=== PATIENT | female | born 1940 | race Caucasian/White ===

== ENCOUNTER 2020-10-03 11:08 | Outpatient (REF) | payer MEDICARE, MEDICAID, SELFPAY ==
--- NOTE | 2020-10-03 | US_ITS ---
EXAMINATION: US RETROPERITONEAL LIMITED (RENAL ONLY) CLINICAL INFORMATION: Nephrolithiasis. COMPARISON: CT abdomen 06/07/2020 TECHNIQUE: Real-time imaging of the kidneys. FINDINGS: RIGHT KIDNEY: 9.3 x 4.8 x 5.2 cm (SAG x AP x TRV). The kidney is normal in size, contour, and echogenicity. Renal cortical thickness is normal. No renal calculi or hydronephrosis. There is an anechoic cyst, the midpole cyst measures 1.2 x 1.1 x 1.2 cm and lower pole cyst measures 1.3 x 1.3 x 1.3 cm. LEFT KIDNEY: 10.3 x 5.6 x 5.3 cm (SAG x AP x TRV). The kidney is normal in size, contour, and echogenicity. Renal cortical thickness is normal. No renal calculi or hydronephrosis. There is an anechoic cyst in upper pole measures 1.1 x 1.5 x 1.1 cm. US/US renal BI IMPRESSION: Bilateral cysts. No kidney stones or hydronephrosis seen.
== END 2020-10-03 11:09 | disposition home or self-care (01) ==
LOC: HO.US 11:08
PROVIDERS: Visit Provider Urology
DX: N20.0 Calculus of kidney (principal)
CPT/HCPCS: 76775

== ENCOUNTER 2021-07-16 09:44 | Inpatient (IN) | payer MEDICARE, MEDICAID, SELFPAY ==
[2021-07-16] VITALS (12 sets, daily range): BP systolic 99–139; BP diastolic 67–89; PULSE 96–190; RESP 15–27; TEMP 37.3–39.6; O2SAT 90–97; BMI 24.0
--- NOTE | ~2021-07-16 | XR_ITS ---
EXAMINATION: CR CHEST CLINICAL INFORMATION: Lethargy. COMPARISON: Chest x-ray dated 06/07/2020. TECHNIQUE: AP semiupright portable view of the chest was obtained. FINDINGS: EKG leads overlie the chest. Right atrial and right ventricular pacer lead unchanged in position. Cardiomediastinal silhouette mildly enlarged and unchanged. Coronary artery stent seen in region of the LAD. Dense atherosclerotic calcification of the aortic arch and descending aorta. Low lung volumes with asymmetric mild elevation of right hemidiaphragm, similar to previous exam. Minimal linear bibasilar atelectasis. No focal consolidation, significant effusion or pneumothorax. Mild gaseous distention of bowel loops in the upper abdomen, likely transverse colon. Several right upper quadrant mandi seen from prior cholecystectomy. XR/XR chest 1V IMPRESSION: 1. Mild bibasilar subsegmental atelectasis. No focal acute pulmonary process. 2. Prominent atherosclerotic aortic calcifications and LAD stent.
--- NOTE | 2021-07-16 09:50 | ED_ITS ---
HPI - Altered Mental Status General Chief Complaint: Altered Mental Status Stated Complaint: altered mental status Time Seen by Provider: 07/16/21 09:49 Source: EMS Mode of arrival: EMS Limitations: altered mental status History of Present Illness HPI narrative: Increase lethargy for the past few days MD complaint: altered mental status and decreased responsiveness Onset (ago): day(s) Severity: moderate Associated symptoms: denies other symptoms Related Data Home Medications Medication Instructions Recorded Confirmed Lactobacillus acidophilus 07/16/21 07/16/21 Multivitamin And Mineral 07/16/21 UTI-Stat 07/16/21 amlodipine 2.5 mg tablet 1 tab PO DAILY 07/16/21 07/16/21 insulin glargine 100 unit/mL unit SUBCUT 07/16/21 subcutaneous solution (Lantus U-100 Insulin) insulin lispro 100 unit/mL SUBCUT 07/16/21 subcutaneous solution (Humalog U-100 Insulin) isosorbide mononitrate 20 mg tablet 1 tab PO DAILY 07/16/21 07/16/21 levothyroxine 112 mcg tablet 1 tab PO DAILY 07/16/21 07/16/21 metoprolol tartrate 50 mg tablet 1 tab PO BID 07/16/21 07/16/21 potassium chloride 10 mEq cap PO 07/16/21 capsule,extended release rivaroxaban 20 mg tablet (Xarelto) 1 tab PO DAILY 07/16/21 07/16/21 sitagliptin 25 mg tablet (Januvia) 1 tab PO DAILY 07/16/21 07/16/21 venlafaxine 150 mg 1 cap PO DAILY 07/16/21 07/16/21 capsule,extended release 24 hr Allergies Allergy/AdvReac Type Severity Reaction Status Date / Time No Known Allergies Allergy Mild NONE Unverified 06/02/20 16:28 sesame seed [SESAME SEED] Allergy Unknown UNK Unverified 06/07/20 08:31 spider bites Allergy Unknown severe Uncoded 04/22/20 00:00 Review of Systems Review of Systems: Yes Unobtainable due to mental status PMFSH Social History Social History Alcohol intake: unknown Patient Tobacco Use Status: Tobacco use Unknown Use of substances other than those prescribed or required for medical reasons: Unable to respond Advance Directives: No Advance Directives Information Provided: No Physical Exam Vital Signs: Vital Signs: Last Vital Signs Temp 100.8 F H 07/16/21 11:36 Pulse 128 H 07/16/21 11:36 Resp 22 H 07/16/21 11:36 BP 114/89 07/16/21 11:36 Pulse Ox 94 07/16/21 11:36 Body Mass Index 24.0 Const: Other: [place] female minimally responsive Nutritional Appearance: average body habitus Limitations: altered mental status HENMT: Head: Yes normal to inspection Ears: external ears normal General nose exam: Normal external nose present Mouth: Normal oral and palatal mucosa present and oropharynx normal Throat: Yes posterior oropharynx normal Eyes: General: appearance normal, both eyes and all related structures Neck: Other: supple Neck: Yes normal visual inspection Chest: Chest palpation & inspection: normal inspection of the chest Resp: Auscultation: clear to auscultation bilaterally Cardio: Jugular venous distension: no JVD Rate: regular rate Rhythm: regular rhythm Heart sounds: S1 normal heart sound present and S2 normal heart sound present GI: Inspection: Yes normal to inspection Palpation (GI): Soft to palpation, nontender and No hepatosplenomegaly present Auscultation: normal bowel sounds : General: Yes no CVA tenderness Back/Spine/Pelvis: Back: no CVA tenderness Skin: General skin exam: no rashes or lesions noted Neuro: Other: movement all extremities to noxious stimulus Extrem: General: Yes normal to inspection Psych: Appearance: grossly normal Course Reevaluation(s) Reevaluation #1: Patient with sepsis from urinary source, hypernatremia seconda ry to dehydration, intial low BP secondary to dehydration and sepsis, demand infarction from rapid afib and sepsis will give rectal ASA, ceftriaxone given for UTI. Patients heart rate and blood pressure have improved with saline, no need for pressors at this time Time: 11:12 Reevaluation #2: discussed with Dr. Clifton who would no anticoagulate at this time Time: 12:11 MDM - Altered Mental Status Lab Data Result diagrams: 07/16/21 10:12 07/16/21 10:12 Labs: Lab Results 07/16/21 07/16/21 07/16/21 Range/Units 10:12 10:12 10:12 WBC 13.1 H (4.8-10.8) X10*3/uL RBC 6.17 H (4.20-5.50) X10*6/uL Hgb 18.3 H (12.0-16.0) g/dl Hct 57.1 H (37.0-47.0) % MCV 92.5 (80.0-98.0) fL MCH 29.7 (27.0-33.0) pg MCHC 32.0 (31.0-35.0) g/dl RDW 13.5 (11.0-16.0) % Plt Count 246 (160-400) X10*3/uL MPV 10.5 (9.4-12.3) fL Immature Gran % (Auto) 0.5 H (0.0-0.4) % Neut % (Auto) 80.6 H (45-73) % Lymph % (Auto) 13.4 L (20-40) % [place] % (Auto) 5.2 (2-11) % Eos % (Auto) 0.0 (0-4) % Baso % (Auto) 0.3 (0-2) % Lymph # (Auto) 1.8 (1.2-4.9) X10*3/uL [place] # (Auto) 0.7 (0.1-1.2) X10*3/uL Eos # (Auto) 0.0 (0.0-0.4) X10*3/uL Baso # (Auto) 0.0 (0.0-0.2) X10*3/uL Abs Immat Gran (auto) 0.06 H (0.00-0.03) X10*3/uL Absolute Neuts (auto) 10.56 H (2.0-8.3) x10*3/uL Absolute Nucleated RBC 0.000 (0.0-0.012) X10*3/uL Nucleated RBC % (auto) 0.0 (0.0-0.2) /100WBC Sodium 154 H (135-145) mmol/L Potassium 5.4 H (3.3-5.1) mmol/L Chloride 116 H (96-108) mmol/L Carbon Dioxide 21 L (22-29) mmol/L Anion Gap 22 H (12-20) BUN 27 H (9-16) mg/dL Creatinine 1.42 H (0.5-1.4) mg/dL Estim Creat Clear Calc 25.8 Estimated GFR 35 Random Glucose 221 H (60-115) mg/dL Lactic Acid (0.5-2.0) mmol/L Calcium 9.6 (8.4-10.2) mg/dL Total Bilirubin 1.8 H (0.0-1.0) mg/dL Direct Bilirubin 0.4 (0.0-0.5) mg/dL AST 40 H (5-31) U/L ALT 44 H (0-31) U/L Alkaline Phosphatase 82 (39-117) U/L Troponin I High Sens 1105.5 H* (<3.5-17.0) ng/L Total Protein 7.9 (6.5-8.0) g/dL Albumin 3.7 (3.5-5.0) g/dL Urine Color Urine Appearance Urine pH (5.0-8.0) Ur Specific [place] (1.005-1.025) Urine Protein (NEG-TRACE) MG/DL Urine Glucose (UA) (NEG) MG/DL Urine Ketones (NEG) MG/DL Urine Blood (NEG) Urine Nitrite (NEG) Ur Leukocyte Esterase (NEG) Urine RBC (0) /HPF Urine WBC (0-4) /HPF Ur Squamous Epith Cells /LPF Calcium Oxalate Crystal /LPF Urine Bacteria /LPF COVID-19 (DANNY) (Negative) COVID-19 Clin Com 07/16/21 07/16/21 07/16/21 Range/Units 10:12 10:25 10:35 WBC (4.8-10.8) X10*3/uL RBC (4.20-5.50) X10*6/uL Hgb (12.0-16.0) g/dl Hct (37.0-47.0) % MCV (80.0-98.0) fL MCH (27.0-33.0) pg MCHC (31.0-35.0) g/dl RDW (11.0-16.0) % Plt Count (160-400) X10*3/uL MPV (9.4-12.3) fL Immature Gran % (Auto) (0.0-0.4) % Neut % (Auto) (45-73) % Lymph % (Auto) (20-40) % [place] % (Auto) (2-11) % Eos % (Auto) (0-4) % Baso % (Auto) (0-2) % Lymph # (Auto) (1.2-4.9) X10*3/uL [place] # (Auto) (0.1-1.2) X10*3/uL Eos # (Auto) (0.0-0.4) X10*3/uL Baso # (Auto) (0.0-0.2) X10*3/uL Abs Immat Gran (auto) (0.00-0.03) X10*3/uL Absolute Neuts (auto) (2.0-8.3) x10*3/uL Absolute Nucleated RBC (0.0-0.012) X10*3/uL Nucleated RBC % (auto) (0.0-0.2) /100WBC Sodium (135-145) mmol/L Potassium (3.3-5.1) mmol/L Chloride (96-108) mmol/L Carbon Dioxide (22-29) mmol/L Anion Gap (12-20) BUN (9-16) mg/dL Creatinine (0.5-1.4) mg/dL Estim Creat Clear Calc Estimated GFR Random Glucose (60-115) mg/dL Lactic Acid 2.9 H* (0.5-2.0) mmol/L Calcium (8.4-10.2) mg/dL Total Bilirubin (0.0-1.0) mg/dL Direct Bilirubin (0.0-0.5) mg/dL AST (5-31) U/L ALT (0-31) U/L Alkaline Phosphatase (39-117) U/L Troponin I High Sens (<3.5-17.0) ng/L Total Protein (6.5-8.0) g/dL Albumin (3.5-5.0) g/dL Urine Color YELLOW Urine Appearance TURBID Urine pH 6.0 (5.0-8.0) Ur Specific [place] >= 1.030 H (1.005-1.025) Urine Protein 1+ H (NEG-TRACE) MG/DL Urine Glucose (UA) NEG (NEG) MG/DL Urine Ketones 15 (NEG) MG/DL Urine Blood 2+ H (NEG) Urine Nitrite POS H (NEG) Ur Leukocyte Esterase 3+ H (NEG) Urine RBC 0 (0) /HPF Urine WBC TNTC H (0-4) /HPF Ur Squamous Epith Cells TRACE /LPF Calcium Oxalate Crystal 1+ /LPF Urine Bacteria 4+ /LPF COVID-19 (DANNY) Negative (Negative) COVID-19 Clin Com See Note Imaging Data Chest x-ray: Attestation: I personally reviewed and interpreted this imaging study as follows: Radiologist's impression: no infiltrate ECG Data ECG #1: Attestation: I personally reviewed and interpreted this ECG as follows: Interpretation: Atrial fibrillaton, rate of 130, Old inferior wall ID, no st or twave changes Critical Care Time Critical Care Time Attestation: I spent 40 minutes of critical care, with interventions, assessments, speaking to patient, consultants, and family. Discharge Plan Discharge Clinical Impression: Non-ST elevated myocardial infarction (non-STEMI), Acute hypernatremia Sepsis Qualifiers: Sepsis type: sepsis due to unspecified organism Sepsis acute organ dysfunction status: with acute organ dysfunction Severe sepsis acute organ dysfunction type: encephalopathy Severe sepsis shock status: without septic shock Qualified Code(s): A41.9 - Sepsis, unspecified organism Urinary tract infection Qualifiers: Urinary tract infection type: site unspecified Hematuria presence: without hematuria Qualified Code(s): N39.0 - Urinary tract infection, site not specified Patient Disposition: Admitted As Inpatient
--- NOTE | 2021-07-16 09:55 | ECG_ITS ---
Test Reason : High HR Blood Pressure : / mmHG Vent. Rate : 188 BPM Atrial Rate : 000 BPM P-R Int : 000 ms QRS Dur : 110 ms QT Int : 256 ms P-R-T Axes : 000 -36 150 degrees QTc Int : 453 ms Atrial fibrillation with rapid ventricular response Left axis deviation Left ventricular hypertrophy ( Sandro product , Romhilt-Shanks ) Possible Lateral infarct , age undetermined Incomplete left bundle branch block Abnormal ECG Atrial fibrillation is new Incomplete left bundle branch block has replaced Left bundle branch block Heart rate has increased Clinical Correlation Advised Referred By: Vinnie Jackson Electronically Signed By:FAUZIA PETERSON MD
[2021-07-16] MEDS: 0.9 % Sodium Chloride 1,000 ML 125 ML IVCONT ×2 (10:13→18:37)
[2021-07-16 10:17] LABS: MANUAL DIFF FLAG NO
[2021-07-16 10:20] LABS: Basophils Percent Auto 0.3 % (0-2); Hemoglobin 18.3 g/dl (12.0-16.0); Imm Gran Abs Auto 0.06 X10*3/uL (0.00-0.03); Imm Gran Pct Auto 0.5 % (0.0-0.4); Lymphocytes Absolute Auto 1.8 X10*3/uL (1.2-4.9); Lymphocytes Percent Auto 13.4 % (20-40); Mean Corpuscular Hemoglobin 29.7 pg (27.0-33.0); Mean Corpuscular Volume 92.5 fL (80.0-98.0); Mean Platelet Volume 10.5 fL (9.4-12.3); Monocytes Absolute Auto 0.7 X10*3/uL (0.1-1.2); Monocytes Percent Auto 5.2 % (2-11); Neutrophils Absolute Auto 10.56 x10*3/uL (2.0-8.3); Neutrophils Percent Auto 80.6 % (45-73); Platelet Count 246 X10*3/uL (160-400); Red Blood Count 6.17 X10*6/uL (4.20-5.50); Red Cell Distribution Width 13.5 % (11.0-16.0); White Blood Count 13.1 X10*3/uL (4.8-10.8)
[2021-07-16 10:21] LABS: Hematocrit 57.1 % (37.0-47.0)
[2021-07-16] MEDS: Acetaminophen Supp 650 MG SUPP.RECT PR (10:28)
[2021-07-16] MEDS: 0.9 % Sodium Chloride 1,905.09 ML 999 ML IV (10:29)
[2021-07-16 10:42] LABS: Troponin-I High Sensitivity 1105.5 ng/L (<3.5-17.0)
[2021-07-16 10:43] LABS: Lactic Acid 2.9 mmol/L (0.5-2.0)
[2021-07-16 10:44] LABS: Appearance Urine TURBID; Color Urine YELLOW; Glucose Urine UA NEG (NEG); Leukocyte Esterase Urine 3+ (NEG); Nitrite Urine POS (NEG); Specific Gravity - Urine >= 1.030 (1.005-1.025); UACC Culture Trigger YES; Urine Blood 2+ (NEG); Urine Ketones 15 MG/DL (NEG); Urine Protein 1+ MG/DL (NEG-TRACE)
[2021-07-16 10:48] LABS: COVID-19 Test Negative (Negative)
[2021-07-16 10:52] LABS: Alanine Aminotransferase 44 U/L (0-31); Albumin Level 3.7 g/dL (3.5-5.0); Alkaline Phosphatase 82 U/L (39-117); Anion Gap 22 (12-20); Aspartate Amino Transferase 40 U/L (5-31); Bilirubin Direct 0.4 mg/dL (0.0-0.5); Bilirubin Total 1.8 mg/dL (0.0-1.0); Blood Urea Nitrogen 27 mg/dL (9-16); Calcium 9.6 mg/dL (8.4-10.2); Carbon Dioxide 21 mmol/L (22-29); Chloride 116 mmol/L (96-108); Creatinine Clr Calc Pharmacy 25.8; Estimated Glomerular Filt Rate 35; Glucose Random 221 mg/dL (60-115); Potassium 5.4 mmol/L (3.3-5.1); Sodium 154 mmol/L (135-145); Total Protein 7.9 g/dL (6.5-8.0)
[2021-07-16 10:56] LABS: Bacteria Urine 4+ /LPF; Calcium Oxalate Crystals Urine 1+ /LPF; WBC Urine TNTC /HPF (0-4)
[2021-07-16 10:57] LABS: RBC Urine 0 /HPF (0); Squamous Epithelial Cell Urine TRACE /LPF
[2021-07-16] MEDS: cefTRIAXone sodium 2 GM in 0.9 % Sodium Chloride 50 ML IV (11:06)
[2021-07-16] MEDS: Aspirin 300 MG SUPP.RECT PR (11:36)
[2021-07-16 12:27] LABS: Reflex Lactate? Lactic Acid Added
--- NOTE | 2021-07-16 12:29 | PM.IMHP ---
History of Present Illness Date of Service: 07/16/21 Chief Complaint: ams 81F from care home was sent in for progressive sleepiness, decreased intake. at baseline patient is alert, moderately demented, can talk but not particularly conversational, usually recognizes family members, needs assistance in all ADLs including feeding. over last few days has become more sleepy and has had decreased appetite so they broght her to ED. in ED found to be septic, febril, tachycardic. UA was pyuric and bacturic. labs significant for EVELYN and hypernatremia, as well as hs troponin of 1100. Review of Systems Review of Systems: Yes Unobtainable due to mental status [facility] Medical History Breast cancer CAD (coronary artery disease) Chronic combined systolic and diastolic CHF (congestive heart failure) Dementia Diabetes mellitus HTN (hypertension) Hypothyroid LBBB (left bundle branch block) Paroxysmal A-fib Presence of stent in LAD coronary artery Family History Father CAD (coronary artery disease) Diabetes Mother CAD (coronary artery disease) Pertinent family history: . Surgical History S/P cholecystectomy Status post cardiac pacemaker procedure Social History Alcohol intake: unknown Patient Tobacco Use Status: Never used Tobacco Use of substances other than those prescribed or required for medical reasons: Unable to respond Advance Directives: No Advance Directives Information Provided: No Meds Allergies Allergy/AdvReac Type Severity Reaction Status Date / Time No Known Allergies Allergy Mild NONE Unverified 06/02/20 16:28 sesame seed [SESAME SEED] Allergy Unknown UNK Unverified 06/07/20 08:31 spider bites Allergy Unknown severe Uncoded 04/22/20 00:00 Active Medications: Current Medications Acetaminophen (Acetaminophen 325 Mg Tablet) 650 mg PO Q6H PRN PRN Reason: Pain, Mild (Pain Scale 1-3) Dextrose (Dextrose 50 % 25 Gm/50 Ml Vial) 25 gm IVPUSH Q15M PRN; Protocol PRN Reason: per Hypoglycemia Standing Ord. Glucose (Glucose Gel 15 Gm Gel..Gram.) 15 gm PO Q15M PRN; Protocol PRN Reason: per Hypoglycemia Standing Ord. Sodium Chloride (Ns) 1,000 mls @ 125 mls/hr IVCONT .Q8H [facility] Last Admin: 07/16/21 10:13 Dose: 125 mls/hr Documented by: Ceftriaxone Sodium 1 gm/ (Sodium Chloride) 50 mls @ 100 mls/hr IV Q24H [facility] Insulin Glargine (Insulin Glargine,Hum.Rec.Anlog 100 Unit/Ml 10 Ml Vial) 10 unit SUBCUT BEDTIME [facility] Insulin Human Lispro (Insulin Lispro 100 Unit/Ml 3 Ml Vial) 0 unit SUBCUT QIDACHS [facility]; Protocol Levothyroxine Sodium (Levothyroxine Sodium 112 Mcg Tablet) 112 mcg PO DAILY@0600 [facility] Metoprolol Tartrate (Metoprolol Tartrate 50 Mg Tablet) 50 mg PO BID [facility]; Protocol Rivaroxaban (Rivaroxaban 20 Mg Tablet) 20 mg PO DAILY [facility] Sitagliptin Phosphate (Sitagliptin Phosphate 25 Mg Tablet) 25 mg PO DAILY [facility] Sodium Chloride (0.9 % Sodium Chloride Flush 3 Ml Syringe) 3 ml IVFLUSH QSHIFT [facility] Venlafaxine HCl (Venlafaxine Hcl Er 150 Mg Cap.Er.24h) 150 mg PO DAILY [facility] Home Medications Medication Instructions Recorded Confirmed Last Taken Type Lactobacillus acidophilus 07/16/21 07/16/21 Unknown History Multivitamin And Mineral 07/16/21 Unknown History UTI-Stat 07/16/21 Unknown History amlodipine 2.5 mg tablet 1 tab PO DAILY 07/16/21 07/16/21 Unknown History insulin glargine 100 unit/mL unit SUBCUT 07/16/21 Unknown History subcutaneous solution (Lantus U-100 Insulin) insulin lispro 100 unit/mL SUBCUT 07/16/21 Unknown History subcutaneous solution (Humalog U-100 Insulin) isosorbide mononitrate 20 mg tablet 1 tab PO DAILY 07/16/21 07/16/21 Unknown History levothyroxine 112 mcg tablet 1 tab PO DAILY 07/16/21 07/16/21 Unknown History metoprolol tartrate 50 mg tablet 1 tab PO BID 07/16/21 07/16/21 Unknown History potassium chloride 10 mEq cap PO 07/16/21 Unknown History capsule,extended release rivaroxaban 20 mg tablet (Xarelto) 1 tab PO DAILY 07/16/21 07/16/21 Unknown History sitagliptin 25 mg tablet (Januvia) 1 tab PO DAILY 07/16/21 07/16/21 Unknown History venlafaxine 150 mg 1 cap PO DAILY 07/16/21 07/16/21 Unknown History capsule,extended release 24 hr Physical Exam Vital Signs and Narrative: Vital Signs: Last Vital Signs Temp 100.8 F H 07/16/21 11:36 Pulse 128 H 07/16/21 11:36 Resp 22 H 07/16/21 11:36 BP 114/89 07/16/21 11:36 Pulse Ox 94 07/16/21 11:36 Body Mass Index 24.0 General: obtunded, ill appearing HEENT: atraumatic Neck: normal to visual inspection CVS: S1, S2, Rapid Resp: CTA bilateral Chest: non tender GI: soft, non tender, non distended : no CVA tenderness Skin: no rashes Extremities: no edema Neuro: Obtunded, moves all 4 limbs spontaneously Psych: cannot assess Results Labs CBC and Chem 7: 07/16/21 10:12 07/16/21 10:12 Labs: Laboratory Results - last 24 hr 07/16/21 07/16/21 07/16/21 10:12 10:12 10:12 MCV 92.5 MCH 29.7 MCHC 32.0 RDW 13.5 Plt Count 246 MPV 10.5 Immature Gran % (Auto) 0.5 H Neut % (Auto) 80.6 H Lymph % (Auto) 13.4 L [place] % (Auto) 5.2 Eos % (Auto) 0.0 Baso % (Auto) 0.3 Lymph # (Auto) 1.8 [place] # (Auto) 0.7 Eos # (Auto) 0.0 Baso # (Auto) 0.0 Abs Immat Gran (auto) 0.06 H Absolute Neuts (auto) 10.56 H Absolute Nucleated RBC 0.000 Nucleated RBC % (auto) 0.0 Anion Gap 22 H Estim Creat Clear Calc 25.8 Estimated GFR 35 Random Glucose 221 H Lactic Acid Calcium 9.6 Total Bilirubin 1.8 H Direct Bilirubin 0.4 AST 40 H ALT 44 H Alkaline Phosphatase 82 Troponin I High Sens 1105.5 H* Total Protein 7.9 Albumin 3.7 Urine Color Urine Appearance Urine pH Ur Specific [place] Urine Protein Urine Glucose (UA) Urine Ketones Urine Blood Urine Nitrite Ur Leukocyte Esterase Urine RBC Urine WBC Ur Squamous Epith Cells Calcium Oxalate Crystal Urine Bacteria COVID-19 (DANNY) COVID-19 Clin Com 07/16/21 07/16/21 07/16/21 10:12 10:25 10:35 MCV MCH MCHC RDW Plt Count MPV Immature Gran % (Auto) Neut % (Auto) Lymph % (Auto) [place] % (Auto) Eos % (Auto) Baso % (Auto) Lymph # (Auto) [place] # (Auto) Eos # (Auto) Baso # (Auto) Abs Immat Gran (auto) Absolute Neuts (auto) Absolute Nucleated RBC Nucleated RBC % (auto) Anion Gap Estim Creat Clear Calc Estimated GFR Random Glucose Lactic Acid 2.9 H* Calcium Total Bilirubin Direct Bilirubin AST ALT Alkaline Phosphatase Troponin I High Sens Total Protein Albumin Urine Color YELLOW Urine Appearance TURBID Urine pH 6.0 Ur Specific [place] >= 1.030 H Urine Protein 1+ H Urine Glucose (UA) NEG Urine Ketones 15 Urine Blood 2+ H Urine Nitrite POS H Ur Leukocyte Esterase 3+ H Urine RBC 0 Urine WBC TNTC H Ur Squamous Epith Cells TRACE Calcium Oxalate Crystal 1+ Urine Bacteria 4+ COVID-19 (DANNY) Negative COVID-19 Clin Com See Note Imaging Radiologist's Impressions: Impressions Chest X-Ray 07/16/21 09:56 IMPRESSION: 1. Mild bibasilar subsegmental atelectasis. No focal acute pulmonary process. 2. Prominent atherosclerotic aortic calcifications and LAD stent. Assessment and Plan (1) Sepsis: Qualifiers: Sepsis acute organ dysfunction status: with acute organ dysfunction Sepsis type: sepsis due to unspecified organism Severe sepsis acute organ dysfunction type: encephalopathy Severe sepsis shock status: without septic shock Qualified Code(s): A41.9 - Sepsis, unspecified organism; R65.20 - Severe sepsis without septic shock; G93.40 - Encephalopathy, unspecified Status: Acute (2) EVELYN (acute kidney injury): Status: Acute 81F presented with AMS, found to have sepsis, uti, hypernatremia, evelyn severe sepsis due to UTI complicated by metabolic encephalopathy, hypernatremia, type II NSTEMI, and EVELYN rocephin, follow up cultures IVF - isotonic for now, monitor bmp will follow up troponin, but no need for specific therapy at this time, cardio eval paroxysmal atrial fibrillation xarelto metoprolol DM insulin htn will hold meds while septic CAD xarelto hypothyroid synthroid chronic systolic and diastolic chf currently dry -watch for fluid overload full code - discussed with daughter Quality Stroke Does the patient have a stroke diagnosis?: No VTE Prior VTE?: No VTE Risk Level:: Medical - moderate - high VTE Device Contraindication: Treatment Not Indicated VTE Drug Contraindication: N/A - Med Ordered
[2021-07-16 13:27] LABS: ~Lactic Acid-LAB USE ONLY 1.8 mmol/L (0.5-2.0)
--- NOTE | 2021-07-16 16:50 | PC.NURSE ---
Pt is resting comfortably in bed at this time. Pt has had multiple bouts of very watery loose stools throughout the day. NS is infusing. Temp, HR and mental status have improved. Pt has not had anything to eat yet, for she is still lethargic. Will continue to monitor and treat while waiting for an in patient bed assignment.
[2021-07-16 18:14] LABS: Glucose, Whole Blood 123 mg/dL (60-115)
[2021-07-16 20:20] LABS: Glucose, Whole Blood 112 mg/dL (60-115)
[2021-07-16] MEDS: Insulin Glargine,Hum.rec.anlog 100 UNIT/ML 10 ML VIAL 10 UNIT SUBCUT (22:17)
[2021-07-17] VITALS (9 sets, daily range): BP systolic 105–163; BP diastolic 70–105; PULSE 62–157; RESP 14–20; TEMP 36.1–37.4; O2SAT 94–100
[2021-07-17] MEDS: 0.9 % Sodium Chloride Flush 3 ML SYRINGE IVFLUSH ×2 (00:56→15:42)
[2021-07-17] MEDS: 0.9 % Sodium Chloride 1,000 ML 125 ML IVCONT (03:06)
[2021-07-17] MEDS: Metoprolol Tartrate 5 MG/5 ML VIAL IVPUSH ×2 (03:56→09:45)
[2021-07-17 05:47] LABS: Hematocrit 50.7 % (37.0-47.0); Hemoglobin 15.5 g/dl (12.0-16.0); Mean Corpuscular HGB Conc 30.6 g/dl (31.0-35.0); Mean Corpuscular Hemoglobin 29.5 pg (27.0-33.0); Mean Corpuscular Volume 96.4 fL (80.0-98.0); Mean Platelet Volume 10.7 fL (9.4-12.3); Platelet Count 180 X10*3/uL (160-400); Red Blood Count 5.26 X10*6/uL (4.20-5.50); Red Cell Distribution Width 13.3 % (11.0-16.0); White Blood Count 14.8 X10*3/uL (4.8-10.8)
[2021-07-17 06:02] LABS: Anion Gap 13 (12-20); Blood Urea Nitrogen 20 mg/dL (9-16); Carbon Dioxide 18 mmol/L (22-29); Chloride 126 mmol/L (96-108); Creatinine Clr Calc Pharmacy 48.4; Estimated Glomerular Filt Rate > 60; Glucose Fasting 102 mg/dL (60-99); Potassium 3.5 mmol/L (3.3-5.1); Sodium 153 mmol/L (135-145)
[2021-07-17 06:10] LABS: Troponin-I High Sensitivity 354.8 ng/L (<3.5-17.0)
--- NOTE | 2021-07-17 06:18 | PM.EVENT ---
Event Note Date of Service: 07/17/21 Event Note: Elevated Troponins: Likely Demand from sepsis/afib RVR; pt already on xarelto; Cardiology notfied. prn IV metoprolol given for RVR
[2021-07-17 08:11] LABS: Glucose, Whole Blood 91 mg/dL (60-115)
[2021-07-17] MEDS: Dextrose 5 % 1,000 ML 125 ML IVCONT ×3 (08:19→23:20)
[2021-07-17] MEDS: cefTRIAXone sodium 1 GM in 0.9 % Sodium Chloride 50 ML IV (08:19)
--- NOTE | 2021-07-17 08:33 | PC.NURSE ---
this rn reached out to ana in speech d/t over night concerns of aspiration
--- NOTE | 2021-07-17 10:45 | HO.PM.IMPN ---
Subjective Subjective Date of Service: 07/17/21 Interval History: cc: ams interval history: poor historian, now alert, denies complaints Cardiovascular Cardiovascular: Reports no additional cardiovascular complaints Respiratory Respiratory: Reports no additional respiratory complaints Physical Exam Vital Signs: Vital Signs: Last Vital Signs Temp 99.3 F 07/17/21 06:33 Pulse 112 H 07/17/21 09:51 Resp 14 07/17/21 09:51 BP 128/95 H 07/17/21 09:51 Pulse Ox 94 07/17/21 09:51 Body Mass Index 24.0 General: AO X 1, no acute distress Resp: CTA bilateral, no accessory muscles used CVS: S1,S2,RRR GI: soft, non tender, non distended Neuro: motor grossly intact, alert Psych: appropriate affect, impaired insight Objective Data Active Medications Acetaminophen (Acetaminophen 325 Mg Tablet) 650 mg PO Q6H PRN PRN Reason: Pain, Mild (Pain Scale 1-3) Dextrose (Dextrose 50 % 25 Gm/50 Ml Vial) 25 gm IVPUSH Q15M PRN; Protocol PRN Reason: per Hypoglycemia Standing Ord. Glucose (Glucose Gel 15 Gm Gel..Gram.) 15 gm PO Q15M PRN; Protocol PRN Reason: per Hypoglycemia Standing Ord. Ceftriaxone Sodium 1 gm/ (Sodium Chloride) 50 mls @ 100 mls/hr IV Q24H [facility] Last Infusion: 07/17/21 08:49 Dose: 0 mls/hr Documented by: CARIN Dextrose (D5w) 1,000 mls @ 125 mls/hr IVCONT .Q8H [facility] Last Admin: 07/17/21 08:19 Dose: 125 mls/hr Documented by: CARIN Insulin Glargine (Insulin Glargine,Hum.Rec.Anlog 100 Unit/Ml 10 Ml Vial) 10 unit SUBCUT BEDTIME [facility] Last Admin: 07/16/21 22:17 Dose: 10 unit Documented by: TONE Insulin Human Lispro (Insulin Lispro 100 Unit/Ml 3 Ml Vial) 0 unit SUBCUT QIDACHS [facility]; Protocol Last Admin: 07/17/21 08:19 Dose: Not Given Documented by: CARIN Non-Admin Reason: No Insulin Coverage Levothyroxine Sodium (Levothyroxine Sodium 112 Mcg Tablet) 112 mcg PO DAILY@0600 [facility] Last Admin: 07/17/21 06:35 Dose: Not Given Documented by: TONE Non-Admin Reason: NPO Metoprolol Tartrate (Metoprolol Tartrate 50 Mg Tablet) 50 mg PO BID [facility]; Protocol Last Admin: 07/17/21 07:56 Dose: Not Given Documented by: CARIN Non-Admin Reason: See Note Metoprolol Tartrate (Metoprolol Tartrate 5 Mg/5 Ml Vial) 5 mg IVPUSH Q6H PRN PRN Reason: HR>125 Last Admin: 07/17/21 09:45 Dose: 5 mg Documented by: CARIN Rivaroxaban (Rivaroxaban 20 Mg Tablet) 20 mg PO DAILY [facility] Last Admin: 07/17/21 07:57 Dose: Not Given Documented by: CARIN Non-Admin Reason: See Note Sitagliptin Phosphate (Sitagliptin Phosphate 25 Mg Tablet) 25 mg PO DAILY [facility] Last Admin: 07/17/21 07:57 Dose: Not Given Documented by: CARIN Non-Admin Reason: See Note Sodium Chloride (0.9 % Sodium Chloride Flush 3 Ml Syringe) 3 ml IVFLUSH QSHIFT [facility] Last Admin: 07/17/21 08:20 Dose: Not Given Documented by: CARIN Non-Admin Reason: IV Running Venlafaxine HCl (Venlafaxine Hcl Er 150 Mg Cap.Er.24h) 150 mg PO DAILY [facility] Last Admin: 07/17/21 07:58 Dose: Not Given Documented by: CARIN Non-Admin Reason: See Note Labs CBC & Chem 7: 07/17/21 05:41 07/17/21 05:41 Labs: Laboratory Results - last 24 hr 07/16/21 07/16/21 07/16/21 10:12 10:12 10:35 MCV MCH MCHC RDW Plt Count MPV Absolute Nucleated RBC Nucleated RBC % (auto) Anion Gap 22 H Estim Creat Clear Calc 25.8 Estimated GFR 35 POC Glucose Random Glucose 221 H Fasting Glucose Lactic Acid Fup @ 2Hr Calcium 9.6 Total Bilirubin 1.8 H Direct Bilirubin 0.4 AST 40 H ALT 44 H Alkaline Phosphatase 82 Troponin I High Sens Total Protein 7.9 Albumin 3.7 Urine Color YELLOW Urine Appearance TURBID Urine pH 6.0 Ur Specific Antonito >= 1.030 H Urine Protein 1+ H Urine Glucose (UA) NEG Urine Ketones 15 Urine Blood 2+ H Urine Nitrite POS H Ur Leukocyte Esterase 3+ H Urine RBC 0 Urine WBC TNTC H Ur Squamous Epith Cells TRACE Calcium Oxalate Crystal 1+ Urine Bacteria 4+ COVID-19 (DANNY) Negative COVID-19 Clin Com See Note 07/16/21 07/16/21 07/16/21 13:12 18:09 20:16 MCV MCH MCHC RDW Plt Count MPV Absolute Nucleated RBC Nucleated RBC % (auto) Anion Gap Estim Creat Clear Calc Estimated GFR POC Glucose 123 H 112 Random Glucose Fasting Glucose Lactic Acid Fup @ 2Hr 1.8 Calcium Total Bilirubin Direct Bilirubin AST ALT Alkaline Phosphatase Troponin I High Sens Total Protein Albumin Urine Color Urine Appearance Urine pH Ur Specific Antonito Urine Protein Urine Glucose (UA) Urine Ketones Urine Blood Urine Nitrite Ur Leukocyte Esterase Urine RBC Urine WBC Ur Squamous Epith Cells Calcium Oxalate Crystal Urine Bacteria COVID-19 (DANNY) COVID-19 Clin Com 07/17/21 07/17/21 07/17/21 05:41 05:41 05:41 MCV 96.4 MCH 29.5 MCHC 30.6 L RDW 13.3 Plt Count 180 D MPV 10.7 Absolute Nucleated RBC 0.000 Nucleated RBC % (auto) 0.0 Anion Gap 13 Estim Creat Clear Calc 48.4 Estimated GFR > 60 POC Glucose Random Glucose Fasting Glucose 102 H Lactic Acid Fup @ 2Hr Calcium 8.0 L D Total Bilirubin Direct Bilirubin AST ALT Alkaline Phosphatase Troponin I High Sens 354.8 H* D Total Protein Albumin Urine Color Urine Appearance Urine pH Ur Specific [place] Urine Protein Urine Glucose (UA) Urine Ketones Urine Blood Urine Nitrite Ur Leukocyte Esterase Urine RBC Urine WBC Ur Squamous Epith Cells Calcium Oxalate Crystal Urine Bacteria COVID-19 (DANNY) COVID-19 Clin Com 07/17/21 08:08 MCV MCH MCHC RDW Plt Count MPV Absolute Nucleated RBC Nucleated RBC % (auto) Anion Gap Estim Creat Clear Calc Estimated GFR POC Glucose 91 Random Glucose Fasting Glucose Lactic Acid Fup @ 2Hr Calcium Total Bilirubin Direct Bilirubin AST ALT Alkaline Phosphatase Troponin I High Sens Total Protein Albumin Urine Color Urine Appearance Urine pH Ur Specific [place] Urine Protein Urine Glucose (UA) Urine Ketones Urine Blood Urine Nitrite Ur Leukocyte Esterase Urine RBC Urine WBC Ur Squamous Epith Cells Calcium Oxalate Crystal Urine Bacteria COVID-19 (DANNY) COVID-19 Clin Com Assessment and Plan (1) MIMI (acute kidney injury): Status: Acute (2) Sepsis: Status: Acute (3) Urinary tract infection: Status: Acute (4) Non-ST elevated myocardial infarction (non-STEMI): Status: Acute Assessment and Plan: 81F presented with AMS, found to have sepsis, uti, hypernatremia, mimi severe sepsis due to UTI complicated by metabolic encephalopathy, hypernatremia, type II NSTEMI, and MIMI encephalopathy and MIMI resolved rocephin, follow up cultures IVF - now volume resuscitated, changed to hypotonic, monitor bmp troponin decreasing paroxysmal atrial fibrillation with RVR xarelto metoprolol DM insulin htn will hold meds while septic CAD xarelto hypothyroid synthroid chronic systolic and diastolic chf now euvolemic -watch for fluid overload full code Quality Stroke Does the patient have a stroke diagnosis?: No VTE Prior VTE?: No VTE Risk Level:: Medical - moderate - high VTE Device Contraindication: Treatment Not Indicated VTE Drug Contraindication: N/A - Med Ordered
[2021-07-17] MEDS: Rivaroxaban 20 MG TABLET PO (11:20)
[2021-07-17] MEDS: SITagliptin Phosphate 25 MG TABLET PO (11:21)
[2021-07-17] MEDS: Venlafaxine HCl ER 150 MG CAP.ER.24H PO (11:21)
[2021-07-17] MEDS: Metoprolol Tartrate 50 MG TABLET PO ×2 (11:22→21:53)
--- NOTE | 2021-07-17 11:45 | MHC.SL.SWA ---
Speech Pathologist Impression: Risk of Aspiration Oralpharyngeal Dysphagia Risk of Aspiration Due to: Neurological Condition Poor PO Intake Reduced Cognition Dysphasia Diet Status: Upgrade Liquid Consistency and Strategies for Safe Swallow: Liquid Intake Recommendation: [place] Thick Liquid Intake Strategies: Small Sips No Straws Solid Food Consistency: Dietary Recommendations: Pureed (NDD1) Additional Modifications to Solid Foods: Patient was previously seen by OYSTERMAN for bedside dysphagia evaluation on 06/10/20. At that time, patient was reportedly on pureed solids and thin liquids at baseline, and required 1:1 assistance feeding and cues to swallow at times. Patient is now admitted for severe sepsis d/t UTI. Order was placed for bedside dysphagia evaluation in the ED this morning due to concern for aspiration. Patient seen this morning for PO trials. Note overt s/s of aspiration with thin liquid given by teaspoon. Patient tolerated thickened liquids without any difficulty. Note mildly slow oral preparatory phase. Recommend PUREED solids (NDD1), NECTAR THICK liquids (NO STRAW), and CRUSHED pills in PUREE. Patient requires total 1:1 assistance feeding and strict aspiration precautions. OYSTERMAN will continue to follow. Oral Medication Intake: Crushed with Puree Compensatory Strategies and Precautions to be Taken for Safe Swallow: Sitting Upright (90 deg) No Straw Small Bites and Sips Alternate Liquids/Solids Rate of Ingestion Change Oral Check Supervision While Eating and Drinking for Safe Swallow: Total Assistance Swallowing Recommended Treatments: Compens. Strategy Educat. Recommendation for Speech: Inpatient Speech Therapy Comment: Frequency/Duration: Daily M-F Teacher Dancing Clinican/Clinical Fellow: No Supervisory Statement: I have reviewed and agree with the student/clinical fellow's documentation: N/A Speech Language Pathologist: Kelley Leggett M.A., CCC-OY[facility]MAN
--- NOTE | 2021-07-17 12:14 | MHC.CM.PN ---
Attempted to meet with patient in regards to discharge planning. Patient has advanced dementia. No family at bedside. Attempted to reach patient's daughter/HCP, Marbella via telephone at [phone]. Left message requesting return telephone call. IMM sent via certified mail. Case management assessment completed using medical record. Patient is a LTC resident of [facility]. Anticipate patient will return via BLS when medically stable. Copy of HCP verified to be on file. Patient received Ule vaccines on 09/25, 10/16, and 07/13. Continue to monitor for d/c needs.
--- NOTE | 2021-07-17 12:30 | PC.NURSE ---
report given to imc rn to call back
--- NOTE | 2021-07-17 12:36 | PC.NURSE ---
report given to s3
[2021-07-17 13:26] LABS: Glucose, Whole Blood 201 mg/dL (60-115)
[2021-07-17] MEDS: Insulin Lispro 100 UNIT/ML 3 ML VIAL SUBCUT ×2 (13:30→20:31)
[2021-07-17 16:03] LABS: Glucose, Whole Blood 136 mg/dL (60-115)
[2021-07-17 19:34] LABS: Glucose, Whole Blood 176 mg/dL (60-115)
[2021-07-17] MEDS: Insulin Glargine,Hum.rec.anlog 100 UNIT/ML 10 ML VIAL 10 UNIT SUBCUT (20:30)
[2021-07-18] VITALS (7 sets, daily range): BP systolic 95–129; BP diastolic 53–70; PULSE 66–81; RESP 16–20; TEMP 36.1–36.7; O2SAT 95–99
[2021-07-18] MEDS: Levothyroxine Sodium 112 MCG TABLET PO (05:29)
[2021-07-18] MEDS: Dextrose 5 % 1,000 ML 125 ML IVCONT (06:01)
[2021-07-18 06:57] LABS: PLT CLUMP 1
[2021-07-18 06:59] LABS: Hematocrit 49.9 % (37.0-47.0); Hemoglobin 15.5 g/dl (12.0-16.0); Mean Corpuscular HGB Conc 31.1 g/dl (31.0-35.0); Mean Corpuscular Hemoglobin 29.3 pg (27.0-33.0); Mean Corpuscular Volume 94.3 fL (80.0-98.0); Red Blood Count 5.29 X10*6/uL (4.20-5.50); Red Cell Distribution Width 12.9 % (11.0-16.0); White Blood Count 9.7 X10*3/uL (4.8-10.8)
[2021-07-18 07:10] LABS: Anion Gap 13 (12-20); Blood Urea Nitrogen 20 mg/dL (9-16); Calcium 7.8 mg/dL (8.4-10.2); Carbon Dioxide 20 mmol/L (22-29); Chloride 111 mmol/L (96-108); Estimated Glomerular Filt Rate 58; Glucose Fasting 175 mg/dL (60-99); Potassium 3.2 mmol/L (3.3-5.1); Sodium 141 mmol/L (135-145)
[2021-07-18 07:37] LABS: Glucose, Whole Blood 167 mg/dL (60-115)
[2021-07-18 07:38] LABS: Platelet Count 134 X10*3/uL (160-400)
[2021-07-18] MEDS: cefTRIAXone sodium 1 GM in 0.9 % Sodium Chloride 50 ML IV (08:05)
[2021-07-18] MEDS: Insulin Lispro 100 UNIT/ML 3 ML VIAL SUBCUT (08:08)
[2021-07-18] MEDS: SITagliptin Phosphate 25 MG TABLET PO (08:10)
[2021-07-18] MEDS: Rivaroxaban 20 MG TABLET PO (08:10)
[2021-07-18] MEDS: Metoprolol Tartrate 50 MG TABLET PO ×2 (08:10→21:29)
[2021-07-18] MEDS: 0.9 % Sodium Chloride Flush 3 ML SYRINGE IVFLUSH ×2 (08:11→15:53)
--- NOTE | 2021-07-18 10:31 | MHC.SLORD ---
Speech Language Pathology Order Status: AIR HAMMER STRIPPER attempted to see patient for dysphagia treatment. Patient was sleeping upon arrival of AIR HAMMER STRIPPER and did not wake to sternal rub and verbal stimuli. Patient is too lethargic for PO trials at this time. AIR HAMMER STRIPPER connected with RN via [employer] Message. RN reports that patient is tolerating current diet textures- PUREED solids (NDD1) and NECTAR THICK liquids, crushed pills. Plan to follow up tomorrow morning. If there are any changes before then, please contact AIR HAMMER STRIPPER via [employer] Message or ext. [phone].
--- NOTE | 2021-07-18 11:17 | PC.NURSE ---
Skin/Wound assessment completed. Patient has stage 1 pressure injury to bilateral coccyx. Triad cream applied and left RAMAKRISHNA. Turning and repositioning every 2 hours. Scattered bruising on bilateral arms. No other skin issues or open areas noted at this time.
[2021-07-18 11:33] LABS: Glucose, Whole Blood 86 mg/dL (60-115)
[2021-07-18] MEDS: Potassium Chloride Packet 20 MEQ PACKET 40 MEQ PO (11:39)
--- NOTE | 2021-07-18 11:50 | HO.PM.IMPN ---
Subjective Subjective Date of Service: 07/18/21 Interval History: cc: ams interval history: poor historian, now alert, denies complaints Cardiovascular Cardiovascular: Reports no additional cardiovascular complaints Respiratory Respiratory: Reports no additional respiratory complaints Physical Exam Vital Signs: Vital Signs: Last Vital Signs Temp 97.7 F 07/18/21 11:15 Pulse 75 07/18/21 11:15 Resp 16 07/18/21 11:15 BP 95/61 07/18/21 11:15 Pulse Ox 95 07/18/21 11:15 Body Mass Index 24.0 General: AO X 1, no acute distress Resp:? CTA bilateral, no accessory muscles used CVS: S1,S2,RRR GI: soft, non tender, non distended Neuro:? motor grossly intact, alert Psych: appropriate affect, impaired insight? Objective Data Active Medications Acetaminophen (Acetaminophen 325 Mg Tablet) 650 mg PO Q6H PRN PRN Reason: Pain, Mild (Pain Scale 1-3) Dextrose (Dextrose 50 % 25 Gm/50 Ml Vial) 25 gm IVPUSH Q15M PRN; Protocol PRN Reason: per Hypoglycemia Standing Ord. Glucose (Glucose Gel 15 Gm Gel..Gram.) 15 gm PO Q15M PRN; Protocol PRN Reason: per Hypoglycemia Standing Ord. Ceftriaxone Sodium 1 gm/ (Sodium Chloride) 50 mls @ 100 mls/hr IV Q24H [facility] Last Infusion: 07/18/21 08:44 Dose: 0 mls/hr Documented by: NA Insulin Glargine (Insulin Glargine,Hum.Rec.Anlog 100 Unit/Ml 10 Ml Vial) 10 unit SUBCUT BEDTIME [facility] Last Admin: 07/17/21 20:30 Dose: 10 unit Documented by: NAZ Insulin Human Lispro (Insulin Lispro 100 Unit/Ml 3 Ml Vial) 0 unit SUBCUT QIDACHS [facility]; Protocol Last Admin: 07/18/21 11:38 Dose: Not Given Documented by: NA Non-Admin Reason: No Insulin Coverage Levothyroxine Sodium (Levothyroxine Sodium 112 Mcg Tablet) 112 mcg PO DAILY@0600 [facility] Last Admin: 07/18/21 05:29 Dose: 112 mcg Documented by: DANIEL Metoprolol Tartrate (Metoprolol Tartrate 50 Mg Tablet) 50 mg PO BID [facility]; Protocol Last Admin: 07/18/21 08:10 Dose: 50 mg Documented by: NA Metoprolol Tartrate (Metoprolol Tartrate 5 Mg/5 Ml Vial) 5 mg IVPUSH Q6H PRN PRN Reason: HR>125 Last Admin: 07/17/21 09:45 Dose: 5 mg Documented by: CARIN Rivaroxaban (Rivaroxaban 20 Mg Tablet) 20 mg PO DAILY [facility] Last Admin: 07/18/21 08:10 Dose: 20 mg Documented by: NA Sitagliptin Phosphate (Sitagliptin Phosphate 25 Mg Tablet) 25 mg PO DAILY [facility] Last Admin: 07/18/21 08:10 Dose: 25 mg Documented by: NA Sodium Chloride (0.9 % Sodium Chloride Flush 3 Ml Syringe) 3 ml IVFLUSH QSHIFT [facility] Last Admin: 07/18/21 08:11 Dose: 3 ml Documented by: NA Venlafaxine HCl (Venlafaxine Hcl Er 150 Mg Cap.Er.24h) 150 mg PO DAILY [facility] Last Admin: 07/18/21 08:48 Dose: Not Given Documented by: NA Non-Admin Reason: Unable to crush Labs CBC & Chem 7: 07/18/21 06:34 07/18/21 06:34 Labs: Laboratory Results - last 24 hr 07/17/21 07/17/21 07/17/21 13:23 15:53 19:30 MCV MCH MCHC RDW Plt Count MPV Absolute Nucleated RBC Nucleated RBC % (auto) Anion Gap Estim Creat Clear Calc Estimated GFR POC Glucose 201 H 136 H 176 H Fasting Glucose Calcium 07/18/21 07/18/21 07/18/21 06:34 06:34 07:29 MCV 94.3 MCH 29.3 MCHC 31.1 RDW 12.9 Plt Count 134 L D MPV Not Reportable Absolute Nucleated RBC 0.000 Nucleated RBC % (auto) 0.0 Anion Gap 13 Estim Creat Clear Calc 40.0 Estimated GFR 58 POC Glucose 167 H Fasting Glucose 175 H Calcium 7.8 L 07/18/21 11:01 MCV MCH MCHC RDW Plt Count MPV Absolute Nucleated RBC Nucleated RBC % (auto) Anion Gap Estim Creat Clear Calc Estimated GFR POC Glucose 86 Fasting Glucose Calcium Microbiology Microbiology Results: Microbiology 07/16/21 Unknown Urine Culture - Preliminary Urine Catheterized - Straight Catheter Culture in progress. 07/16/21 10:52 Blood Culture - Preliminary Blood - Venous No growth after 24 hours. 07/16/21 10:12 Blood Culture - Preliminary Blood - Venous No growth after 24 hours. Assessment and Plan (1) MIMI (acute kidney injury): Status: Acute (2) Sepsis: Status: Acute (3) Urinary tract infection: Status: Acute (4) Non-ST elevated myocardial infarction (non-STEMI): Status: Acute Assessment and Plan: 81F presented with AMS, found to have sepsis, uti, hypernatremia, mimi severe sepsis due to UTI complicated by metabolic encephalopathy, hypernatremia, type II NSTEMI, and MIMI encephalopathy and MIMI resolved rocephin, follow up cultures, blood negative to date, urine pending hypernatremia resolved, dc ivf at risk for recurrent hypernatremia due to dysphagia and thickened liquids, monitor troponin decreasing - no need for furhter work up paroxysmal atrial fibrillation with RVR xarelto metoprolol DM insulin htn will hold meds while septic CAD xarelto hypothyroid synthroid chronic systolic and diastolic chf now euvolemic -watch for fluid overload full code Quality Stroke Does the patient have a stroke diagnosis?: No VTE Prior VTE?: No VTE Risk Level:: Medical - moderate - high VTE Device Contraindication: Treatment Not Indicated VTE Drug Contraindication: N/A - Med Ordered
[2021-07-18 16:07] LABS: Glucose, Whole Blood 43 mg/dL (60-115)
[2021-07-18 16:36] LABS: Glucose, Whole Blood 109 mg/dL (60-115)
[2021-07-18 19:53] LABS: Glucose, Whole Blood 112 mg/dL (60-115)
[2021-07-19] VITALS (8 sets, daily range): BP systolic 117–135; BP diastolic 60–87; PULSE 58–72; RESP 17–20; TEMP 36.4–37.1; O2SAT 94–100
[2021-07-19] MEDS: 0.9 % Sodium Chloride Flush 3 ML SYRINGE IVFLUSH ×3 (00:22→20:45)
[2021-07-19] MEDS: Levothyroxine Sodium 112 MCG TABLET PO (05:53)
[2021-07-19 07:14] LABS: Hematocrit 43.9 % (37.0-47.0); Hemoglobin 14.4 g/dl (12.0-16.0); Mean Corpuscular HGB Conc 32.8 g/dl (31.0-35.0); Mean Corpuscular Hemoglobin 29.6 pg (27.0-33.0); Mean Corpuscular Volume 90.3 fL (80.0-98.0); Mean Platelet Volume 11.8 fL (9.4-12.3); Platelet Count 165 X10*3/uL (160-400); Red Blood Count 4.86 X10*6/uL (4.20-5.50); Red Cell Distribution Width 12.8 % (11.0-16.0); White Blood Count 10.2 X10*3/uL (4.8-10.8)
[2021-07-19 07:25] LABS: Glucose, Whole Blood 46 mg/dL (60-115)
[2021-07-19] MEDS: Glucose Gel 15 GM GEL..GRAM. PO (07:33)
[2021-07-19 07:54] LABS: Anion Gap 12 (12-20); Blood Urea Nitrogen 16 mg/dL (9-16); Calcium 8.2 mg/dL (8.4-10.2); Carbon Dioxide 24 mmol/L (22-29); Chloride 112 mmol/L (96-108); Creatinine Clr Calc Pharmacy 45.4; Estimated Glomerular Filt Rate > 60; Glucose Fasting 79 mg/dL (60-99); Potassium 2.9 mmol/L (3.3-5.1); Sodium 145 mmol/L (135-145)
[2021-07-19 07:55] LABS: Glucose, Whole Blood 55 mg/dL (60-115)
[2021-07-19 08:12] LABS: Glucose, Whole Blood 65 mg/dL (60-115)
[2021-07-19] MEDS: Rivaroxaban 20 MG TABLET PO (09:28)
[2021-07-19] MEDS: Metoprolol Tartrate 50 MG TABLET PO ×2 (09:28→20:44)
[2021-07-19] MEDS: Potassium Chloride Packet 20 MEQ PACKET 40 MEQ PO (10:36)
[2021-07-19] MEDS: cefTRIAXone sodium 1 GM in 0.9 % Sodium Chloride 50 ML IV (10:36)
[2021-07-19 11:17] LABS: Glucose, Whole Blood 107 mg/dL (60-115)
--- NOTE | 2021-07-19 11:49 | MHC.SL.DTX ---
Dysphagia Diet modifications: Last documented Solid diet consistencies: Pureed (NDD1) Last documented Liquid consistency: [place] Thick Changes made to current diet?: No Liquid Consistency and Strategies: Liquid Intake Recommendation: [place] Thick Compensatory Strategies for Safe Swallow: Small Sips No Straws Compensatory Strategies for Safe Swallow(b): Sitting Upright (90 deg) No Straw Liquids from Cup Small Bites and Sips Alternate Liquids/Solids Solid Food Consistency: Dietary Recommendations: Pureed (NDD1) Treatment: Pt was seen for dysphagia treatment. She was re-positioned upright in bed. Pt perseveratively stated that she just wants to get out of here . With encouragement, pt accepted clinician controlled cup sips of nectar thick liquids for which she demonstrated a delayed pharyngeal swallow trigger and no overt s/s aspiration. Pt declined solids offered. Pt was found to be incontinent of stool and was unaware. RN notified. Continue with current diet consistency of NDD1 PUREED solids and NECTAR THICK liquids. Pt continues to require aspiration precautions and 1:1 assist/supervision with all PO intake. PICK UP MAN will continue to follow pt. Oral Medication Intake: Crushed with Puree Strategies and Precautions to be Taken for Safe Swallow: Sitting Upright (90 deg) No Straw Liquids from Cup Small Bites and Sips Alternate Liquids/Solids Supervision While Eating and/Drinking: Total Assistance Foods to Avoid: Swallowing Recommended Treatments: Compens. Strategy Educat. Level of Impact on: Daily activities: Severe Community: Severe Prognosis for Improvement: Fair Recommendation for Speech: Inpatient Speech Therapy Crop Supervisor Clinican/Clinical Fellow: No Supervisory Statement: I have reviewed and agree with the student/clinical fellow's documentation: N/A Speech Language Pathologist: Yolande Smith M.A., CCC-PICK UP [facility]
--- NOTE | 2021-07-19 12:29 | MHC.CLN ---
DISCUSSED AT ROUNDS RECOMMEND ADDING GLUCERNA BID TO INCREASE KCALS MD REPORTS LOW PO INTAKE CITIZENSHIP INSTRUCTOR FOLLOWING FOR DIET CONSISTENCY MONITOR PO INTAKE CLOSELY
--- NOTE | 2021-07-19 15:12 | HO.PM.IMPN ---
Subjective Subjective Date of Service: 07/20/21 Interval History: Being followed for sepsis, resting comfortably, pleasantly confused with underlying dementia, no acute Review of Systems Difficult to obtain review of systems , patient with underlying dementia Physical Exam Vital Signs: Vital Signs: Last Vital Signs Temp 98.2 F 07/19/21 11:06 Pulse 58 07/19/21 11:06 Resp 20 07/19/21 11:06 BP 118/60 07/19/21 11:06 Pulse Ox 94 07/19/21 11:06 Body Mass Index 24.0 General: Awake, a lert,no acute dist ress Resp:? CTA bi lateral, no access ory muscles used C VS: S1,S2,RRR GI: soft, non tender, non distended, bow el sounds audible Extremities no leanne ma Neuro:? motor g rossly intact, charly rt Psych: impaired insight? Objective Data Active Medications Acetaminophen (Acetaminophen 325 Mg Tablet) 650 mg PO Q6H PRN PRN Reason: Pain, Mild (Pain Scale 1-3) Dextrose (Dextrose 50 % 25 Gm/50 Ml Vial) 25 gm IVPUSH Q15M PRN; Protocol PRN Reason: per Hypoglycemia Standing Ord. Last Admin: 07/18/21 16:10 Dose: 25 gm Documented by: Glucose (Glucose Gel 15 Gm Gel..Gram.) 15 gm PO Q15M PRN; Protocol PRN Reason: per Hypoglycemia Standing Ord. Last Admin: 07/19/21 07:33 Dose: 15 gm Documented by: PEPITO Ceftriaxone Sodium 1 gm/ (Sodium Chloride) 50 mls @ 100 mls/hr IV Q24H [facility] Last Infusion: 07/19/21 11:13 Dose: 0 mls/hr Documented by: PEPITO Insulin Glargine (Insulin Glargine,Hum.Rec.Anlog 100 Unit/Ml 10 Ml Vial) 10 unit SUBCUT BEDTIME [facility] Last Admin: 07/18/21 21:41 Dose: Not Given Documented by: NAZ Non-Admin Reason: Physician Held Med Insulin Human Lispro (Insulin Lispro 100 Unit/Ml 3 Ml Vial) 0 unit SUBCUT QIDACHS [facility]; Protocol Last Admin: 07/19/21 11:26 Dose: Not Given Documented by: PEPITO Non-Admin Reason: No Insulin Coverage Levothyroxine Sodium (Levothyroxine Sodium 112 Mcg Tablet) 112 mcg PO DAILY@0600 [facility] Last Admin: 07/19/21 05:53 Dose: 112 mcg Documented by: MICHAEL Metoprolol Tartrate (Metoprolol Tartrate 50 Mg Tablet) 50 mg PO BID [facility]; Protocol Last Admin: 07/19/21 09:28 Dose: 50 mg Documented by: PEPITO Metoprolol Tartrate (Metoprolol Tartrate 5 Mg/5 Ml Vial) 5 mg IVPUSH Q6H PRN PRN Reason: HR>125 Last Admin: 07/17/21 09:45 Dose: 5 mg Documented by: CARIN Rivaroxaban (Rivaroxaban 20 Mg Tablet) 20 mg PO DAILY [facility] Last Admin: 07/19/21 09:28 Dose: 20 mg Documented by: PEPITO Sitagliptin Phosphate (Sitagliptin Phosphate 25 Mg Tablet) 25 mg PO DAILY [facility] Last Admin: 07/19/21 09:42 Dose: Not Given Documented by: PEPITO Non-Admin Reason: Physician Held Med Sodium Chloride (0.9 % Sodium Chloride Flush 3 Ml Syringe) 3 ml IVFLUSH QSHIFT [facility] Last Admin: 07/19/21 07:29 Dose: 3 ml Documented by: PEPITO Venlafaxine HCl (Venlafaxine Hcl Er 150 Mg Cap.Er.24h) 150 mg PO DAILY [facility] Last Admin: 07/19/21 09:16 Dose: Not Given Documented by: PEPITO Non-Admin Reason: Unable to crush Labs CBC & Chem 7: 07/19/21 06:38 07/20/21 06:50 Labs: Laboratory Results - last 24 hr 07/18/21 07/18/21 07/18/21 15:58 16:33 19:41 MCV MCH MCHC RDW Plt Count MPV Absolute Nucleated RBC Nucleated RBC % (auto) Anion Gap Estim Creat Clear Calc Estimated GFR POC Glucose 43 L* 109 112 Fasting Glucose Calcium 07/19/21 07/19/21 07/19/21 06:38 06:38 07:22 MCV 90.3 MCH 29.6 MCHC 32.8 RDW 12.8 Plt Count 165 MPV 11.8 Absolute Nucleated RBC 0.000 Nucleated RBC % (auto) 0.0 Anion Gap 12 Estim Creat Clear Calc 45.4 Estimated GFR > 60 POC Glucose 46 L* Fasting Glucose 79 Calcium 8.2 L 07/19/21 07/19/21 07/19/21 07:51 08:09 11:14 MCV MCH MCHC RDW Plt Count MPV Absolute Nucleated RBC Nucleated RBC % (auto) Anion Gap Estim Creat Clear Calc Estimated GFR POC Glucose 55 L* 65 107 Fasting Glucose Calcium Microbiology Microbiology Results: Microbiology 07/16/21 Unknown Urine Culture - Preliminary Urine Catheterized - Straight Catheter Gram negative henri 07/16/21 10:52 Blood Culture - Preliminary Blood - Venous No growth after 48 hours. 07/16/21 10:12 Blood Culture - Preliminary Blood - Venous No growth after 48 hours. Assessment and Plan (1) Diabetes mellitus: Status: Acute (2) Hypothyroid: Status: Acute (3) EVELYN (acute kidney injury): Status: Acute (4) LBBB (left bundle branch block): Status: Acute (5) Paroxysmal A-fib: Status: Acute (6) CAD (coronary artery disease): Status: Acute (7) Sepsis: Status: Acute (8) Urinary tract infection: Status: Acute (9) Acute hypernatremia: Status: Acute (10) Non-ST elevated myocardial infarction (non-STEMI): Status: Acute Assessment and Plan: 81F presented with AMS, found to have sepsis, uti, hypernatremia, evelyn severe sepsis due to UTI complicated by metabolic encephalopathy, hypernatremia, type II NSTEMI, and EVELYN WBC normalized, no fevers in last 48 hours blood cultures x2 negative, urine culture growing Gram-negative rods. encephalopathy and EVELYN resolved, patient with baseline confusion Continue IV rocephin, follow up final urine cultures Will return to [facility], once medically stable hypernatremia resolved, dc ivf at risk for recurrent hypernatremia due to dysphagia and thickened liquids, monitor troponin decreasing - hold off further cardiac workup up, EKG showed left bundle-branch block Hypokalemia Will replace and follow paroxysmal atrial fibrillation with RVR Stable ventricular rate on metoprolol and xarelto DM Low blood sugars this a.m. 44 will hold oral hypoglycemics and insulin Follow blood sugars closely htn BP stable continue metoprolol CAD Continue metoprolol and xarelto hypothyroid synthroid chronic systolic and diastolic chf euvolemic will follow closely for fluid overload full code Quality Stroke Does the patient have a stroke diagnosis?: No VTE Prior VTE?: No VTE Risk Level:: Medical - moderate - high VTE Device Contraindication: Treatment Not Indicated VTE Drug Contraindication: N/A - Med Ordered
[2021-07-19 16:12] LABS: Glucose, Whole Blood 137 mg/dL (60-115)
[2021-07-19 20:43] LABS: Glucose, Whole Blood 144 mg/dL (60-115)
[2021-07-20] VITALS (7 sets, daily range): BP systolic 129–167; BP diastolic 71–84; PULSE 58–68; RESP 17–20; TEMP 36.3–36.8; O2SAT 94–98
[2021-07-20] MEDS: Levothyroxine Sodium 112 MCG TABLET PO (05:21)
[2021-07-20 07:25] LABS: Anion Gap 11 (12-20); Blood Urea Nitrogen 11 mg/dL (9-16); Calcium 7.8 mg/dL (8.4-10.2); Carbon Dioxide 22 mmol/L (22-29); Chloride 113 mmol/L (96-108); Creatinine Clr Calc Pharmacy 51.1; Estimated Glomerular Filt Rate > 60; Glucose Random 109 mg/dL (60-115); Potassium 3.8 mmol/L (3.3-5.1); Sodium 142 mmol/L (135-145)
[2021-07-20 07:43] LABS: Thyroid Stimulating Hormone 2.85 uIU/mL (0.32-4.0)
[2021-07-20 07:47] LABS: Glucose, Whole Blood 90 mg/dL (60-115)
[2021-07-20] MEDS: cefTRIAXone sodium 1 GM in 0.9 % Sodium Chloride 50 ML IV (09:32)
[2021-07-20] MEDS: 0.9 % Sodium Chloride Flush 3 ML SYRINGE IVFLUSH ×2 (09:32→19:52)
[2021-07-20] MEDS: Rivaroxaban 20 MG TABLET PO (09:32)
[2021-07-20] MEDS: Metoprolol Tartrate 50 MG TABLET PO ×2 (09:32→19:52)
--- NOTE | 2021-07-20 11:21 | MHC.SL.SWA ---
Speech Pathologist Impression: Risk of Aspiration Oralpharyngeal Dysphagia Risk of Aspiration Due to: Neurological Condition Poor PO Intake Reduced Cognition Dysphasia Diet Status: Upgrade Liquid Consistency and Strategies for Safe Swallow: Liquid Intake Recommendation: [place] Thick Liquid Intake Strategies: Small Sips No Straws Solid Food Consistency: Dietary Recommendations: Pureed (NDD1) Additional Modifications to Solid Foods: Patient was previously seen by [facility] for bedside dysphagia evaluation on 06/10/20. At that time, patient was reportedly on pureed solids and thin liquids at baseline, and required 1:1 assistance feeding and cues to swallow at times. Patient is now admitted for severe sepsis d/t UTI. Order was placed for bedside dysphagia evaluation in the ED this morning due to concern for aspiration. Patient seen this morning for PO trials. Note overt s/s of aspiration with thin liquid given by teaspoon. Patient tolerated thickened liquids without any difficulty. Note mildly slow oral preparatory phase. Recommend PUREED solids (NDD1), NECTAR THICK liquids (NO STRAW), and CRUSHED pills in PUREE. Patient requires total 1:1 assistance feeding and strict aspiration precautions. [facility] will continue to follow. Oral Medication Intake: Crushed with Puree Compensatory Strategies and Precautions to be Taken for Safe Swallow: Sitting Upright (90 deg) No Straw Liquids from Cup Small Bites and Sips Alternate Liquids/Solids Supervision While Eating and Drinking for Safe Swallow: Total Assistance Foods to Avoid: Swallowing Recommended Treatments: Compens. Strategy Educat. Recommendation for Speech: Inpatient Speech Therapy Comment: 07/20/2021 Pt was seen for dysphagia treatment. Pt was alert, sitting upright in bed, disoriented to time and location, responded to her name. Pt. followed directions for dry swallow, with mildly reduced laryngeal transit noted. Pt took small amounts of nectar thick liquid from spoon, with mild delay of swallow after oral phase. Pt. additionally took trace amounts of puree from spoon, with mild delay of swallow after oral phase. Vocal quality was clear after presentations of liquid and puree, with no cough noted. Frequency/Duration: Daily M-F Date Range for Service Req: Timeline to reassess: Epic Ambulatory Analysts Clinican/Clinical Fellow: No Supervisory Statement: I have reviewed and agree with the student/clinical fellow's documentation: N/A Speech Language Pathologist: Amy Bryant M.A., [facility]
[2021-07-20 11:39] LABS: Glucose, Whole Blood 119 mg/dL (60-115)
--- NOTE | 2021-07-20 13:51 | P.DS_ITS ---
DS: Providers Provider Date of Service: 07/20/21 Date of admission: 07/16/21 12:22 Primary care physician: Narinder Lawson MD DS: Diagnosis Discharge Diagnosis (1) Diabetes mellitus: Status: Acute (2) Hypothyroid: Status: Acute (3) MIMI (acute kidney injury): Status: Acute (4) LBBB (left bundle branch block): Status: Acute (5) Paroxysmal A-fib: Status: Acute (6) CAD (coronary artery disease): Status: Acute (7) Sepsis: Status: Acute (8) Urinary tract infection: Status: Acute (9) Acute hypernatremia: Status: Acute (10) Non-ST elevated myocardial infarction (non-STEMI): Status: Acute DS: Summary Hospital Course Hospital Course: Chief Complaint: ams 81F from longterm was sent in for progressive sleepiness, decreased intake. at baseline patient is alert, moderately demented, can talk but not particularly conversational, usually recognizes family members, needs assistance in all ADLs including feeding. over last few days has become more sleepy and has had decreased appetite so they broght her to ED. in ED found to be septic, febril, tachycardic. UA was pyuric and bacturic. labs significant for MIMI and hypernatremia, as well as hs troponin of 1100. Hospital course 81F presented with AMS, patient admitted to monitored floor with a diagnosis of severe sepsis due to UTI complicated by metabolic encephalopathy, hypernatremia, type II NSTEMI, and MIMI, patient treated with IV fluids, IV ceftriaxone urine culture grew E coli, blood cultures x2 are negative patient responded well to above treatment AKA resolved, sodium improved in regard to nstemi patient did not require any further treatment, since it was felt to be related to sepsis, patient remains pleasantly confused, but seems to be her baseline as per patient's daughter the foot she has been discharged back to rehab facility on 7 more days of by mouth Ceftin if patient has history of recurrent UTI consider pr ophylactic antibiotic with Keflex 250 mg daily. In regard to diabetes mellitus patient noted to have low blood sugars, therefore Lantus insulin has been discontinued continue Januvia and insulin sliding scale and monitor blood sugars closely Patient also noted to have Hypokalemia that has been replaced and normalized In regard to paroxysmal atrial fibrillation patient has been continued on meto prolol and Xarelto Time Spent with Patient Time attestation: Total time spent providing and/or coordinating discharge services: Discharge coordination time: Greater than 30 minutes Quality: Stroke Does the patient have a stroke diagnosis?: No Physical Exam Vital Signs: Vital Signs: Last Vital Signs Temp 97.3 F 07/20/21 11:40 Pulse 60 07/20/21 11:40 Resp 17 07/20/21 11:40 BP 129/71 07/20/21 11:40 Pulse Ox 98 07/20/21 11:40 Body Mass Index 24.0 General:? Awake, alert,no acute distress Resp:? CTA bilateral, no accessory muscles used CVS: S1,S2,RRR GI:soft, non tender,non distended, bowel sounds audible Extremities no edema Neuro:? motor grossly intact, alert Psych: impaired?insight.? DS: Data Data Completed and Pending Labs on day of discharge: Laboratory Results - last 24 hr 07/19/21 07/19/21 07/20/21 16:03 20:40 06:50 Sodium 142 Potassium 3.8 D Chloride 113 H Carbon Dioxide 22 Anion Gap 11 L BUN 11 Creatinine 0.72 Estim Creat Clear Calc 51.1 Estimated GFR > 60 POC Glucose 137 H 144 H Random Glucose 109 Calcium 7.8 L TSH 2.85 07/20/21 07/20/21 07:17 11:06 Sodium Potassium Chloride Carbon Dioxide Anion Gap BUN Creatinine Estim Creat Clear Calc Estimated GFR POC Glucose 90 119 H Random Glucose Calcium TSH Preliminary micro results at discharge 07/16/21 10:52 Blood Culture - Preliminary Blood - Venous No growth after 48 hours. 07/16/21 10:12 Blood Culture - Preliminary Blood - Venous No growth after 48 hours. Discharge Plan Discharge Patient Disposition: Xfer SNF Discharge Diagnosis: Acute hyponatremia Sepsis due to pneumonia Mild AKA Type [address] elevation [place] Referrals: Narinder Lawson MD [Primary Care Provider] - 1 Week Discharge Medications: New cefuroxime axetil 500 mg tablet 500 mg PO Q12H 7 Days Qty: 14 RF: 0 Continued potassium chloride 10 mEq capsule, extended release PO RF: 0 isosorbide mononitrate 20 mg tablet 1 tab PO DAILY RF: 0 venlafaxine 150 mg capsule,extended release 24hr 1 cap PO DAILY RF: 0 metoprolol tartrate 50 mg tablet 1 tab PO BID RF: 0 insulin lispro [Humalog U-100 Insulin] 100 unit/mL solution subcut RF: 0 levothyroxine 112 mcg tablet 1 tab PO DAILY RF: 0 Januvia 25 mg tablet 1 tab PO DAILY RF: 0 Xarelto 20 mg tablet 1 tab PO DAILY RF: 0 Discontinued Lantus U-100 Insulin 100 unit/mL solution subcut RF: 0 amlodipine 2.5 mg tablet 1 tab PO DAILY RF: 0 Discharge Orders: Discharge Order (Routine); Ordered 07/20/21 Ordered By: Arthur Brantley Diet: advance to usual diet Activity on Discharge: As tolerated Stand Alone Forms: Patient Portal Discharge page Care Plan Goals: Sepsis with UTI resolved patient continued to be pleasantly confused continue by mouth Ceftin twice daily for 7 days and consider prophylactic antibiotics for recurrent UTI with Keflex 250 mg daily/on nitrofurantoin, push by mouth fluids Health Concerns: Continue all home medications as before except Norvasc discontinued, follow blood pressure and may resume Norvasc noted to have elevated blood pressures. Noted to have low blood sugars for Lantus discontinued follow-up blood sugar closely, continue insulin sliding scale and Januvia Plan of Treatment: Outpatient follow-up with primary care physician in next 7-10 days Assessment: As above
--- NOTE | 2021-07-20 14:00 | MHC.CM.PN ---
Per MD, Patient will be medically cleared for dc to SNF/LTC today. Patient will return to LTC at [facility] today at 6PM, via [facility]. CM left a detailed message for Daughter/HCP/[place] cat [phone], confirming the dc details with her and addressing the second IMM (original to be mailed out to [place] and a copy has been placed on the chart).
[2021-07-20 16:01] LABS: Glucose, Whole Blood 156 mg/dL (60-115)
[2021-07-20 16:02] LABS: COVID-19 Test Negative (Negative); IDNOW Serial# 08D9AD1C
[2021-07-20 20:21] LABS: Glucose, Whole Blood 136 mg/dL (60-115)
[2021-07-21 04:00] VITALS: BP 149/75; PULSE 88; RESP 18; TEMP 36.9; O2SAT 96
--- NOTE | 2021-07-21 05:25 | PC.NURSE ---
Pt awake all night, confused and talking to self. Uncooperative with staff and patient care. Incontinent of urine. Changed and repositioned throughout shift. Denies pain. Bed alarm and camera on for patient safety. Plan to discharge today to [facility]. Will continue to monitor.
[2021-07-21] MEDS: Levothyroxine Sodium 112 MCG TABLET PO (06:16)
[2021-07-21 07:46] VITALS: BP 142/104; PULSE 80; RESP 18; TEMP 36.6; O2SAT 95
[2021-07-21 07:59] LABS: Glucose, Whole Blood 115 mg/dL (60-115)
[2021-07-21 08:07] VITALS: BP 184/82
[2021-07-21 08:24] VITALS: BP 184/82; PULSE 80
[2021-07-21] MEDS: SITagliptin Phosphate 25 MG TABLET PO (08:24)
[2021-07-21] MEDS: Metoprolol Tartrate 50 MG TABLET PO (08:24)
[2021-07-21] MEDS: Rivaroxaban 20 MG TABLET PO (08:25)
[2021-07-21] MEDS: Venlafaxine HCl ER 150 MG CAP.ER.24H PO (08:33)
[2021-07-21] MEDS: cefTRIAXone sodium 1 GM in 0.9 % Sodium Chloride 50 ML IV (08:36)
[2021-07-21] MEDS: 0.9 % Sodium Chloride Flush 3 ML SYRINGE IVFLUSH (08:39)
--- NOTE | 2021-07-21 10:14 | MHC.SLORD ---
Speech Language Pathology Order Status: Pt was sound asleep upon this AIRPLANE CABIN ATTENDANT's arrival to her room and did not awaken to verbal stimuli or a sternal rub. Per RN's note, pt was awake all night and uncooperative with care. Per CM note, plan is for pt to return to her LTC facility this date. Continue with NDD1 PUREED solids with NECTAR thick liquids, MEDS CRUSHED in puree, aspiration precautions, and 1:1 assist with PO intake. Continued ST is recommended upon pt's transfer to the next level of care to determine the safest and least restrictive diet consistency.
--- NOTE | 2021-07-21 11:16 | MHC.CM.PN ---
Patient's scheduled dc for yesterday was delayed r/t transportation issues; Patient will return to [facility] to continue LTC, today at 1PM, via [facility]. CM will inform Patient/family.
[2021-07-21 11:38] LABS: Glucose, Whole Blood 186 mg/dL (60-115)
[2021-07-21 12:00] VITALS: BP 143/92; PULSE 66; RESP 18; TEMP 37.1; O2SAT 98
[2021-07-21] MEDS: Insulin Lispro 100 UNIT/ML 3 ML VIAL SUBCUT (12:35)
== END 2021-07-21 13:35 | disposition skilled nursing facility (03) | DRG 871 ==
LOC: HO.ED 11:14 → HO.EDOVER 12:35 → HO.IMC 07-17 12:03
PROVIDERS: Admitting Provider Internal Medicine; Emergency Provider Emergency Medicine; PCP Family Medicine; Visit Provider Hospitalist
DX: A41.9 Sepsis, unspecified organism (principal); G93.41 Metabolic encephalopathy; I21.A1 Myocardial infarction type 2; N39.0 Urinary tract infection, site not specified; E87.0 Hyperosmolality and hypernatremia; N17.9 Acute kidney failure, unspecified; I50.42 Chronic combined systolic (congestive) and diastolic (congestive) heart failure; I25.10 Atherosclerotic heart disease of native coronary artery without angina pectoris; F03.90 Unspecified dementia, unspecified severity, without behavioral disturbance, psychotic disturbance, mood disturbance, and anxiety; I48.0 Paroxysmal atrial fibrillation; I11.0 Hypertensive heart disease with heart failure; E11.9 Type 2 diabetes mellitus without complications; E03.9 Hypothyroidism, unspecified; I44.7 Left bundle-branch block, unspecified; R65.20 Severe sepsis without septic shock; Z20.822 Contact with and (suspected) exposure to COVID-19; Z79.4 Long term (current) use of insulin; Z79.01 Long term (current) use of anticoagulants; Z79.890 Hormone replacement therapy; Z79.899 Other long term (current) drug therapy
CPT/HCPCS: 36415; 71045; 80048; 80076; 81001; 82947; 83605; 84443; 84484; 85025; 85027; 87040; 87086; 87088; 87186; 87635; 92610; 93005; 96361; 96374; 99285; J0696

== ENCOUNTER 2021-07-22 13:42 | Inpatient (IN) | payer MEDICARE, MEDICAID, SELFPAY ==
--- NOTE | ~2021-07-22 | XR_ITS ---
EXAMINATION: XR CHEST CLINICAL INFORMATION: Weakness. COMPARISON: 07/16/2021 portable chest. TECHNIQUE: Frontal view of the chest was obtained. FINDINGS: Support devices: A left-sided dual-lead pacemaker device appears in good position without interval change. The lungs are clear. The heart and mediastinal structures are unremarkable. XR/XR chest 1V IMPRESSION: No acute cardiopulmonary process.
--- NOTE | ~2021-07-22 | CT_ITS ---
EXAMINATION: CT HEAD WITHOUT CONTRAST CLINICAL INFORMATION: Weakness COMPARISON: CT of the head 04/02/2020 TECHNIQUE: Contiguous axial imaging was performed from the skull base to vertex without intravenous administration of contrast. This CT examination was performed using dose optimization techniques as appropriate, variously including the following: *Automated exposure control *Adjustment of mA and/or kV according to patient size (this includes techniques or standardized protocols for targeted exams where dose is matched to indication/reason for exam; i.e. extremities or head) *Use of iterative reconstruction technique DLP: 601 mGy-cm FINDINGS: There is no evidence of acute intracranial hemorrhage or territorial infarction. No abnormal mass effect or midline shift is seen. [place] to white matter differentiation is well preserved. No extra-axial fluid collections are identified. There is prominence of the ventricles and sulci, commensurate with the degree of age-related atrophy.. There are are areas of decreased attenuation in the subcortical and periventricular white matter, compatible with chronic small vessel ischemic changes. The osseous structures and soft tissues are normal. The mastoid air cells and visualized portions of the paranasal sinuses are well aerated. CT/CT head/brain wo con IMPRESSION: No acute intracranial pathology.
[2021-07-22 13:56] VITALS: BP 117/74; BP 118/71; PULSE 70; PULSE 95; RESP 18; TEMP 37.1; O2SAT 99; BMI 25.5
--- NOTE | 2021-07-22 14:00 | ED_ITS ---
HPI - Weakness General Chief complaint: Weakness Stated complaint: WEAKNESS/LETHARGY Time Seen by Provider: 07/22/21 13:58 Source: patient, EMS and old records reviewed Mode of arrival: EMS Limitations: altered mental status (dementia) History of Present Illness HPI Narrative: admitted here 07/16 for MIMI, UTI, NSTEMI, hypernatremia - DC on ceftin for E. Coli UTI, held her MD roxanna Complaint: generalized weakness Onset (ago): unknown (?possibly this AM) Location: generalized Migration: none Severity: moderate Quality: other Relieving factors: none Exacerbating factors: none Context: recent illness (see ) Associated symptoms: denies other symptoms Related Data Home Medications Medication Instructions Recorded Confirmed insulin lispro 100 unit/mL SUBCUT 07/16/21 subcutaneous solution (Humalog U-100 Insulin) isosorbide mononitrate 20 mg tablet 1 tab PO DAILY 07/16/21 07/16/21 levothyroxine 112 mcg tablet 1 tab PO DAILY 07/16/21 07/16/21 metoprolol tartrate 50 mg tablet 1 tab PO BID 07/16/21 07/16/21 potassium chloride 10 mEq cap PO 07/16/21 capsule,extended release rivaroxaban 20 mg tablet (Xarelto) 1 tab PO DAILY 07/16/21 07/16/21 sitagliptin 25 mg tablet (Januvia) 1 tab PO DAILY 07/16/21 07/16/21 venlafaxine 150 mg 1 cap PO DAILY 07/16/21 07/16/21 capsule,extended release 24 hr Previous Rx's Medication Instructions Recorded cefuroxime axetil 500 mg tablet 500 mg PO Q12H 7 Days #14 tab 07/20/21 Allergies Allergy/AdvReac Type Severity Reaction Status Date / Time No Known Allergies Allergy Mild NONE Unverified 06/02/20 16:28 sesame seed [SESAME SEED] Allergy Unknown UNK Unverified 06/07/20 08:31 spider bites Allergy Unknown severe Uncoded 04/22/20 00:00 Review of Systems Review of Systems: ROS unable to be obtained due to altered mental status [facility] Past Medical History Attestation statement: The following information was validated with the patient. Medical History Breast cancer CAD (coronary artery disease) Chronic combined systolic and diastolic CHF (congestive heart failure) Dementia Diabetes mellitus HTN (hypertension) Hypothyroid LBBB (left bundle branch block) Nephrolithiasis Paroxysmal A-fib Presence of stent in LAD coronary artery Surgical History S/P cholecystectomy Status post cardiac pacemaker procedure Family History Family History Father CAD (coronary artery disease) Diabetes Mother CAD (coronary artery disease) Social History Social History Household Members: Other Household Members Other:: long term Housing: Skilled Nursing Do you presently have visiting nurse or other home services: Yes Unable to assess alcohol history related to: Unable to respond Alcohol intake: never Patient Tobacco Use Status: Never used Tobacco Advance Directives: Yes Advance Directives on File: Yes Advance Directives Date on File: 07/17/21 service: No Current occupational status: retired Physical Exam Vital Signs: Vital Signs: Last Vital Signs Temp 98.7 F 07/22/21 13:56 Pulse 86 07/22/21 15:19 Resp 18 07/22/21 13:56 BP 135/80 07/22/21 15:19 Pulse Ox 99 07/22/21 13:56 Body Mass Index 25.5 Appearance: Lethargic jelani not answer questions, moderate acute distress. Eyes: Pupils equal, round and reactive to light. ENT: severe dry mouth Neck: Normal inspection. Neck supple. CVS: irregular heart rate and rhythm. Pulses normal. Respiratory: No respiratory distress. Breath sounds diminished Abdomen: Soft and non-tender. Skin: Skin warm and dry. Normal skin color. Normal skin turgor. Extremities: No lower extremity edema. No calf ttp Neuro: confused No motor deficit. No sensory deficit. Course Course Course Narrative: repleting K - UA still appears infected IV levofloxacin ordered at this time MDM - Weakness MDM Narrative Medical decision making narrative: 81 yo female with recent UTI on ceftin, demen tia, NSTEMI, LBBB, MIMI here from SNF with worsening AMS - at this time labs, cultures, EKG< CT head for ICH, CXR, UA - hydration dispo per results and findings. Lab Data Result diagrams: 07/22/21 14:38 07/22/21 14:38 Labs: Lab Results 07/22/21 07/22/21 07/22/21 Range/Units 14:38 14:38 14:38 WBC 9.6 (4.8-10.8) X10*3/uL RBC 5.16 (4.20-5.50) X10*6/uL Hgb 15.6 (12.0-16.0) g/dl Hct 46.0 (37.0-47.0) % MCV 89.1 (80.0-98.0) fL MCH 30.2 (27.0-33.0) pg MCHC 33.9 (31.0-35.0) g/dl RDW 13.1 (11.0-16.0) % Plt Count 173 (160-400) X10*3/uL MPV 11.1 (9.4-12.3) fL Immature Gran % (Auto) 0.3 (0.0-0.4) % Neut % (Auto) 71.0 (45-73) % Lymph % (Auto) 17.6 L (20-40) % [place] % (Auto) 8.0 (2-11) % Eos % (Auto) 3.0 (0-4) % Baso % (Auto) 0.1 (0-2) % Lymph # (Auto) 1.7 (1.2-4.9) X10*3/uL [place] # (Auto) 0.8 (0.1-1.2) X10*3/uL Eos # (Auto) 0.3 (0.0-0.4) X10*3/uL Baso # (Auto) 0.0 (0.0-0.2) X10*3/uL Abs Immat Gran (auto) 0.03 (0.00-0.03) X10*3/uL Absolute Neuts (auto) 6.8 (2.0-8.3) x10*3/uL Absolute Nucleated RBC 0.000 (0.0-0.012) X10*3/uL Nucleated RBC % (auto) 0.0 (0.0-0.2) /100WBC VBG pH (7.32-7.43) VBG pCO2 mmHg VBG pO2 mmHg VBG HCO3 (22-26) mmol/L VBG O2 Saturation % VBG Base Excess mmol/L Sodium 142 (135-145) mmol/L Potassium 2.9 L D (3.3-5.1) mmol/L Chloride 106 (96-108) mmol/L Carbon Dioxide 29 (22-29) mmol/L Anion Gap 10 L (12-20) BUN 9 (9-16) mg/dL Creatinine 0.83 (0.5-1.4) mg/dL Estim Creat Clear Calc 43.1 Estimated GFR > 60 Random Glucose 136 H (60-115) mg/dL Lactic Acid 1.3 (0.5-2.0) mmol/L Calcium 8.3 L D (8.4-10.2) mg/dL Magnesium 1.8 (1.6-2.6) mg/dL Total Bilirubin 0.9 (0.0-1.0) mg/dL Direct Bilirubin 0.3 (0.0-0.5) mg/dL AST 13 D (5-31) U/L ALT 17 (0-31) U/L Alkaline Phosphatase 85 (39-117) U/L Total Protein 5.3 L D (6.5-8.0) g/dL Albumin 2.7 L D (3.5-5.0) g/dL Lipase 6 L (8-78) U/L Urine Color Urine Appearance Urine pH (5.0-8.0) Ur Specific [place] (1.005-1.025) Urine Protein (NEG-TRACE) MG/DL Urine Glucose (UA) (NEG) MG/DL Urine Ketones (NEG) MG/DL Urine Blood (NEG) Urine Nitrite (NEG) Ur Leukocyte Esterase (NEG) Urine RBC (0) /HPF Urine WBC (0-4) /HPF Ur Squamous Epith Cells /LPF Urine Bacteria /LPF COVID-19 (DANNY) (Negative) COVID-19 Clin Com 07/22/21 07/22/21 07/22/21 Range/Units 14:38 14:43 16:00 WBC (4.8-10.8) X10*3/uL RBC (4.20-5.50) X10*6/uL Hgb (12.0-16.0) g/dl Hct (37.0-47.0) % MCV (80.0-98.0) fL MCH (27.0-33.0) pg MCHC (31.0-35.0) g/dl RDW (11.0-16.0) % Plt Count (160-400) X10*3/uL MPV (9.4-12.3) fL Immature Gran % (Auto) (0.0-0.4) % Neut % (Auto) (45-73) % Lymph % (Auto) (20-40) % [place] % (Auto) (2-11) % Eos % (Auto) (0-4) % Baso % (Auto) (0-2) % Lymph # (Auto) (1.2-4.9) X10*3/uL [place] # (Auto) (0.1-1.2) X10*3/uL Eos # (Auto) (0.0-0.4) X10*3/uL Baso # (Auto) (0.0-0.2) X10*3/uL Abs Immat Gran (auto) (0.00-0.03) X10*3/uL Absolute Neuts (auto) (2.0-8.3) x10*3/uL Absolute Nucleated RBC (0.0-0.012) X10*3/uL Nucleated RBC % (auto) (0.0-0.2) /100WBC VBG pH 7.53 H (7.32-7.43) VBG pCO2 35 mmHg VBG pO2 67 mmHg VBG HCO3 30 H (22-26) mmol/L VBG O2 Saturation 93.0 % VBG Base Excess 7.3 mmol/L Sodium (135-145) mmol/L Potassium (3.3-5.1) mmol/L Chloride (96-108) mmol/L Carbon Dioxide (22-29) mmol/L Anion Gap (12-20) BUN (9-16) mg/dL Creatinine (0.5-1.4) mg/dL Estim Creat Clear Calc Estimated GFR Random Glucose (60-115) mg/dL Lactic Acid (0.5-2.0) mmol/L Calcium (8.4-10.2) mg/dL Magnesium (1.6-2.6) mg/dL Total Bilirubin (0.0-1.0) mg/dL Direct Bilirubin (0.0-0.5) mg/dL AST (5-31) U/L ALT (0-31) U/L Alkaline Phosphatase (39-117) U/L Total Protein (6.5-8.0) g/dL Albumin (3.5-5.0) g/dL Lipase (8-78) U/L Urine Color YELLOW Urine Appearance CLOUDY Urine pH 6.0 (5.0-8.0) Ur Specific [place] 1.020 (1.005-1.025) Urine Protein 1+ H (NEG-TRACE) MG/DL Urine Glucose (UA) NEG (NEG) MG/DL Urine Ketones NEG (NEG) MG/DL Urine Blood 3+ H (NEG) Urine Nitrite NEG (NEG) Ur Leukocyte Esterase 3+ H (NEG) Urine RBC 15-29 H (0) /HPF Urine WBC TNTC H (0-4) /HPF Ur Squamous Epith Cells 2+ /LPF Urine Bacteria 3+ /LPF COVID-19 (DANNY) Negative (Negative) COVID-19 Clin Com See Note ECG Data Attestation: I personally reviewed and interpreted this ECG as follows: ECG interpretation date: 07/22/21 ECG interpretation time: 14:29 Interpretation: Rate: 94 Rhythm: afib [place]: left LBBB ST T wave : t waves tall ant leads, artifact noted qTC: prolonged prior studies: artifact noted no sig ischemia The study has been interpreted contemporaneously by me. . Discharge Plan Discharge Clinical Impression: Urinary tract infection, Weakness, Acute hypokalemia Patient Disposition: Admitted As Inpatient Prescriptions: No Action potassium chloride 10 mEq capsule, extended release PO RF: 0 isosorbide mononitrate 20 mg tablet 1 tab PO DAILY RF: 0 venlafaxine 150 mg capsule,extended release 24hr 1 cap PO DAILY RF: 0 metoprolol tartrate 50 mg tablet 1 tab PO BID RF: 0 insulin lispro [Humalog U-100 Insulin] 100 unit/mL solution subcut RF: 0 levothyroxine 112 mcg tablet 1 tab PO DAILY RF: 0 Januvia 25 mg tablet 1 tab PO DAILY RF: 0 Xarelto 20 mg tablet 1 tab PO DAILY RF: 0 cefuroxime axetil 500 mg tablet 500 mg PO Q12H 7 Days Qty: 14 RF: 0
--- NOTE | 2021-07-22 14:12 | ECG_ITS ---
Test Reason : UTI Blood Pressure : / mmHG Vent. Rate : 094 BPM Atrial Rate : 312 BPM P-R Int : 000 ms QRS Dur : 134 ms QT Int : 422 ms P-R-T Axes : 000 -43 117 degrees QTc Int : 527 ms Atrial flutter with variable A-V block Left axis deviation Nonspecific T wave abnormality Left bundle branch block Abnormal ECG Heart rate has decreased aflutter has replaced Atrial fibrillation Referred By: Katerin Gee Electronically Signed By:FAUZIA PETERSON MD
[2021-07-22 14:48] LABS: Basophils Percent Auto 0.1 % (0-2); Eosinophils Absolute Auto 0.3 X10*3/uL (0.0-0.4); Hemoglobin 15.6 g/dl (12.0-16.0); Imm Gran Abs Auto 0.03 X10*3/uL (0.00-0.03); Imm Gran Pct Auto 0.3 % (0.0-0.4); Lymphocytes Absolute Auto 1.7 X10*3/uL (1.2-4.9); Lymphocytes Percent Auto 17.6 % (20-40); MANUAL DIFF FLAG NO; Mean Corpuscular HGB Conc 33.9 g/dl (31.0-35.0); Mean Corpuscular Hemoglobin 30.2 pg (27.0-33.0); Mean Corpuscular Volume 89.1 fL (80.0-98.0); Mean Platelet Volume 11.1 fL (9.4-12.3); Monocytes Absolute Auto 0.8 X10*3/uL (0.1-1.2); Neutrophils Absolute Auto 6.8 x10*3/uL (2.0-8.3); Platelet Count 173 X10*3/uL (160-400); Red Blood Count 5.16 X10*6/uL (4.20-5.50); Red Cell Distribution Width 13.1 % (11.0-16.0); White Blood Count 9.6 X10*3/uL (4.8-10.8)
[2021-07-22 14:50] LABS: Venous Blood Gas Refer to POC result
[2021-07-22] MEDS: 0.9 % Sodium Chloride 500 ML IV (14:51)
[2021-07-22 14:52] LABS: VBG Base Excess 7.3 mmol/L; VBG HCO3 30 mmol/L (22-26); VBG pCO2 35 mmHg; VBG pH 7.53 (7.32-7.43); VBG pO2 67 mmHg
[2021-07-22 14:57] LABS: Lactic Acid 1.3 mmol/L (0.5-2.0)
[2021-07-22 15:07] LABS: IDNOW Serial# 9DD0AD1C
[2021-07-22 15:08] LABS: COVID-19 Test Negative (Negative)
[2021-07-22 15:14] LABS: Alanine Aminotransferase 17 U/L (0-31); Albumin Level 2.7 g/dL (3.5-5.0); Alkaline Phosphatase 85 U/L (39-117); Anion Gap 10 (12-20); Aspartate Amino Transferase 13 U/L (5-31); Bilirubin Direct 0.3 mg/dL (0.0-0.5); Bilirubin Total 0.9 mg/dL (0.0-1.0); Blood Urea Nitrogen 9 mg/dL (9-16); Calcium 8.3 mg/dL (8.4-10.2); Carbon Dioxide 29 mmol/L (22-29); Chloride 106 mmol/L (96-108); Creatinine Clr Calc Pharmacy 43.1; Estimated Glomerular Filt Rate > 60; Glucose Random 136 mg/dL (60-115); Lipase 6 U/L (8-78); Magnesium 1.8 mg/dL (1.6-2.6); Potassium 2.9 mmol/L (3.3-5.1); Sodium 142 mmol/L (135-145); Total Protein 5.3 g/dL (6.5-8.0)
[2021-07-22 15:19] VITALS: BP 135/80; PULSE 86
[2021-07-22] MEDS: Potassium Chloride/H20 10 MEQ/100 ML PIGGYBACK 100 MEQ IV ×2 (15:28→17:05)
[2021-07-22 16:14] LABS: Appearance Urine CLOUDY; Color Urine YELLOW; Glucose Urine UA NEG (NEG); Leukocyte Esterase Urine 3+ (NEG); Nitrite Urine NEG (NEG); UACC Culture Trigger YES; Urine Blood 3+ (NEG); Urine Ketones NEG (NEG); Urine Protein 1+ MG/DL (NEG-TRACE)
[2021-07-22 16:25] LABS: Bacteria Urine 3+ /LPF; Squamous Epithelial Cell Urine 2+ /LPF; WBC Urine TNTC /HPF (0-4)
--- NOTE | 2021-07-22 17:15 | PM.IMHP ---
History of Present Illness Date of Service: 07/22/21 Attending physician on admission: Arthur Brantley Chief Complaint: lethargy This is an 81-year-old female with history of dementia who was recently hospitalized for UTI complicated by metabolic encephalopathy, hypernatremia type 2 NSTEMI and MIMI who was sent back to the hospital from [facility] due to lethargy. She was admitted to [facility] on July 16 and discharged back to [facility] on July 20 with oral Ceftin for treatment of UTI Her daughter saw her in the hospital prior to discharge and her mom was awake and alert, although confused at baseline due to her dementia. This morning she was reportedly unarousable and lethargic and so was sent for evaluation. In the emergency department she was afebrile, lab work was unremarkable with the exception a potassium of 2.9. Urinalysis was again consistent with UTI. She received a dose of IV levofloxacin as well as both oral and IV potassium replacement and the decision was made to readmit her for further management. The patient is unarousable and unable to provide any review of systems. Review of Systems Review of Systems: Yes Unobtainable due to mental status [facility] Medical History Breast cancer CAD (coronary artery disease) Chronic combined systolic and diastolic CHF (congestive heart failure) Dementia Diabetes mellitus HTN (hypertension) Hypothyroid LBBB (left bundle branch block) Nephrolithiasis Paroxysmal A-fib Presence of stent in LAD coronary artery Family History Father CAD (coronary artery disease) Diabetes Mother CAD (coronary artery disease) Surgical History S/P cholecystectomy Status post cardiac pacemaker procedure Social History Household Members: Other Household Members Other:: [facility] Housing: Care Home Do you presently have visiting nurse or other home services: Yes Unable to assess alcohol history related to: Unable to respond Alcohol intake: never Patient Tobacco Use Status: Never used Tobacco Advance Directives: Yes Advance Directives on File: Yes Advance Directives Date on File: 07/17/21 service: No Current occupational status: retired Meds Allergies Allergy/AdvReac Type Severity Reaction Status Date / Time No Known Allergies Allergy Mild NONE Unverified 06/02/20 16:28 sesame seed [SESAME SEED] Allergy Unknown UNK Unverified 06/07/20 08:31 spider bites Allergy Unknown severe Uncoded 04/22/20 00:00 Active Medications: Current Medications Acetaminophen (Acetaminophen 325 Mg Tablet) 650 mg PO Q6H PRN PRN Reason: Pain, Mild (Pain Scale 1-3) Dextrose (Dextrose 50 % 25 Gm/50 Ml Vial) 25 gm IVPUSH Q15M PRN; Protocol PRN Reason: per Hypoglycemia Standing Ord. Docusate Sodium (Docusate Sodium 100 Mg Capsule) 100 mg PO DAILY PRN PRN Reason: Constipation Glucose (Glucose Gel 15 Gm Gel..Gram.) 15 gm PO Q15M PRN; Protocol PRN Reason: per Hypoglycemia Standing Ord. Potassium Chloride () 10 meq in 100 mls @ 100 mls/hr IV Q1H [facility] Stop: 07/22/21 17:29 Last Admin: 07/22/21 17:05 Dose: 100 mls/hr Documented by: Levofloxacin (Levaquin) 500 mg in 100 mls @ 100 mls/hr IV ONCE ONE Stop: 07/22/21 17:19 Potassium Chloride/Sodium Chloride () 40 meq in 1,000 mls @ 80 mls/hr IVCONT .[id number] [facility] Ceftriaxone Sodium 1 gm/ (Sodium Chloride) 50 mls @ 100 mls/hr IV Q24H [facility] Insulin Human Lispro (Insulin Lispro 100 Unit/Ml 3 Ml Vial) [facility] Protocol Ondansetron HCl (Ondansetron Hcl 4 Mg/2 Ml Vial) 4 mg IVPUSH Q8H PRN PRN Reason: Nausea and Vomiting Sodium Chloride (0.9 % Sodium Chloride Flush 3 Ml Syringe) 3 ml IVFLUSH QSHICHI [facility] Home Medications Medication Instructions Recorded Confirmed Last Taken Type insulin lispro 100 unit/mL SUBCUT 07/16/21 Unknown History subcutaneous solution (Humalog U-100 Insulin) isosorbide mononitrate 20 mg tablet 1 tab PO DAILY 07/16/21 07/16/21 Unknown History levothyroxine 112 mcg tablet 1 tab PO DAILY 07/16/21 07/16/21 Unknown History metoprolol tartrate 50 mg tablet 1 tab PO BID 07/16/21 07/16/21 Unknown History potassium chloride 10 mEq cap PO 07/16/21 Unknown History capsule,extended release rivaroxaban 20 mg tablet (Xarelto) 1 tab PO DAILY 07/16/21 07/16/21 Unknown History sitagliptin 25 mg tablet (Januvia) 1 tab PO DAILY 07/16/21 07/16/21 Unknown History venlafaxine 150 mg 1 cap PO DAILY 07/16/21 07/16/21 Unknown History capsule,extended release 24 hr multivitamin 1 tab PO DAILY 07/22/21 07/22/21 Unknown History Physical Exam Vital Signs and Narrative: Vital Signs: Last Vital Signs Temp 98.7 F 07/22/21 13:56 Pulse 86 07/22/21 15:19 Resp 18 07/22/21 13:56 BP 135/80 07/22/21 15:19 Pulse Ox 99 07/22/21 13:56 Body Mass Index 25.5 Const: Other: unarousable to verbal or painful stimuli; appears comfortable Nutritional Appearance: well nourished HENMT: Other: dry mucous membranes Head: Yes normocephalic and Yes atraumatic Eyes: Sclerae: sclerae normal Resp: Effort & Inspection: normal respiratory effort and no respiratory distress Cardio: Rate: regular rate Rhythm: abnormal rhythm irregularly irregular GI: Other: appears non-tender, no facial grimace with palpation; +bowel sounds Inspection: No distended Palpation (GI): Soft to palpation Skin: Other: some mild ecchymosis to dorsal surface b/l hands Extrem: Other: no lower extremity edema Results Labs CBC and Chem 7: 07/22/21 14:38 07/22/21 14:38 Labs: Laboratory Results - last 24 hr 07/22/21 07/22/21 07/22/21 14:38 14:38 14:38 MCV 89.1 MCH 30.2 MCHC 33.9 RDW 13.1 Plt Count 173 MPV 11.1 Immature Gran % (Auto) 0.3 Neut % (Auto) 71.0 Lymph % (Auto) 17.6 L [place] % (Auto) 8.0 Eos % (Auto) 3.0 Baso % (Auto) 0.1 Lymph # (Auto) 1.7 [place] # (Auto) 0.8 Eos # (Auto) 0.3 Baso # (Auto) 0.0 Abs Immat Gran (auto) 0.03 Absolute Neuts (auto) 6.8 Absolute Nucleated RBC 0.000 Nucleated RBC % (auto) 0.0 VBG pH VBG pCO2 VBG pO2 VBG HCO3 VBG O2 Saturation VBG Base Excess Anion Gap 10 L Estim Creat Clear Calc 43.1 Estimated GFR > 60 Random Glucose 136 H Lactic Acid 1.3 Calcium 8.3 L D Magnesium 1.8 Total Bilirubin 0.9 Direct Bilirubin 0.3 AST 13 D ALT 17 Alkaline Phosphatase 85 Troponin I High Sens Total Protein 5.3 L D Albumin 2.7 L D Lipase 6 L Urine Color Urine Appearance Urine pH Ur Specific [place] Urine Protein Urine Glucose (UA) Urine Ketones Urine Blood Urine Nitrite Ur Leukocyte Esterase Urine RBC Urine WBC Ur Squamous Epith Cells Urine Bacteria COVID-19 (DANNY) COVID-[place] 07/22/21 07/22/21 07/22/21 14:38 14:38 14:43 MCV MCH MCHC RDW Plt Count MPV Immature Gran % (Auto) Neut % (Auto) Lymph % (Auto) [place] % (Auto) Eos % (Auto) Baso % (Auto) Lymph # (Auto) [place] # (Auto) Eos # (Auto) Baso # (Auto) Abs Immat Gran (auto) Absolute Neuts (auto) Absolute Nucleated RBC Nucleated RBC % (auto) VBG pH 7.53 H VBG pCO2 35 VBG pO2 67 VBG HCO3 30 H VBG O2 Saturation 93.0 VBG Base Excess 7.3 Anion Gap Estim Creat Clear Calc Estimated GFR Random Glucose Lactic Acid Calcium Magnesium Total Bilirubin Direct Bilirubin AST ALT Alkaline Phosphatase Troponin I High Sens 35.0 H* D Total Protein Albumin Lipase Urine Color Urine Appearance Urine pH Ur Specific [place] Urine Protein Urine Glucose (UA) Urine Ketones Urine Blood Urine Nitrite Ur Leukocyte Esterase Urine RBC Urine WBC Ur Squamous Epith Cells Urine Bacteria COVID-19 (DANNY) Negative COVID-[employer] Com See Note 07/22/21 16:00 MCV MCH MCHC RDW Plt Count MPV Immature Gran % (Auto) Neut % (Auto) Lymph % (Auto) [place] % (Auto) Eos % (Auto) Baso % (Auto) Lymph # (Auto) [place] # (Auto) Eos # (Auto) Baso # (Auto) Abs Immat Gran (auto) Absolute Neuts (auto) Absolute Nucleated RBC Nucleated RBC % (auto) VBG pH VBG pCO2 VBG pO2 VBG HCO3 VBG O2 Saturation VBG Base Excess Anion Gap Estim Creat Clear Calc Estimated GFR Random Glucose Lactic Acid Calcium Magnesium Total Bilirubin Direct Bilirubin AST ALT Alkaline Phosphatase Troponin I High Sens Total Protein Albumin Lipase Urine Color YELLOW Urine Appearance CLOUDY Urine pH 6.0 Ur Specific [place] 1.020 Urine Protein 1+ H Urine Glucose (UA) NEG Urine Ketones NEG Urine Blood 3+ H Urine Nitrite NEG Ur Leukocyte Esterase 3+ H Urine RBC 15-29 H Urine WBC TNTC H Ur Squamous Epith Cells 2+ Urine Bacteria 3+ COVID-19 (DANNY) COVID-19 Clin Com Imaging Radiologist's Impressions: Impressions Head CT 07/22/21 14:12 IMPRESSION: No acute intracranial pathology. Chest X-Ray 07/22/21 14:13 IMPRESSION: No acute cardiopulmonary process. Assessment and Plan (1) Acute hypokalemia: Status: Acute (2) Dementia: Status: Acute (3) Urinary tract infection: Qualifiers: Hematuria presence: with hematuria Urinary tract infection type: acute cystitis Qualified Code(s): N30.01 - Acute cystitis with hematuria Status: Acute This is an 81 old female with history of dementia, diabetes, atrial fibrillation on Xarelto, CAD, hypertension, combined systolic and diastolic CHF with EF of 40-45% was recently admitted to [facility] for UTI complicated by encephalopathy, hypernatremia, NSTEMI, MIMI who returns with lethargy UTI Previous urine culture growing ESBL negative E coli sensitive to ceftriaxone, discharged to facility on oral Ceftin no evidence of sepsis -IV ceftriaxone -follow repeat UCx, BCx Encephalopathy likely metabolic r/t UTI DM hold Januvia -SSI Paroxysmal Atrial fibrillation Continue metoprolol, Xarelto Hypothyroidism Continue Synthroid Chronic combined systolic & diastolic HF Mood continue venlafaxine CAD continue imdur dvt ppx - xarelto code status - full code, confirmed with daughter at bedside Quality Stroke Does the patient have a stroke diagnosis?: No VTE Prior VTE?: No VTE Risk Level:: Medical - moderate - high VTE Device Contraindication: N/A - Device Ordered VTE Drug Contraindication: N/A - Med Ordered
--- NOTE | 2021-07-22 19:15 | PC.NURSE ---
Report taken from Shyla, this RN resuming care. Pt found sleeping in bed, IVF infusing per MAR. Pt denies pain/discomfort at this time. Aware of plan for IV ABX and admission, awaiting bed assignment.
[2021-07-22] MEDS: cefTRIAXone sodium 1 GM in 0.9 % Sodium Chloride 50 ML IV (19:25)
--- NOTE | 2021-07-22 19:30 | PC.NURSE ---
Per EDT, pt is a full feed. EDT reports pt ate approx 75% of dinner.
[2021-07-22] MEDS: KCl 40 mEq in 0.9 % Sodium Chl 40 MEQ/1,000 ML IV.SOLN 80 MEQ IVCONT (19:41)
[2021-07-22] MEDS: levoFLOXacin/D5W 500 MG/100 ML PIGGYBACK 100 MG IV (19:41)
[2021-07-22 19:56] VITALS: BP 119/72; PULSE 112; RESP 14; TEMP 36.4; O2SAT 98
[2021-07-22 21:00] LABS: Glucose, Whole Blood 176 mg/dL (60-115)
[2021-07-22 21:20] VITALS: BP 125/76; PULSE 60
[2021-07-22] MEDS: Metoprolol Tartrate 50 MG TABLET PO (21:20)
[2021-07-22] MEDS: Insulin Lispro 100 UNIT/ML 3 ML VIAL SUBCUT (21:22)
--- NOTE | 2021-07-22 21:49 | PC.NURSE ---
PT found to be incontinent of loose watery stool in bed. PT was then cleaned, linens and khadra changed. New Purewick put in place. PT found to have stage 2 wound on left coccyx region. Wound dressing applied. Barrier cream applied to buttocks. PT positioned on right side. Provided extra pillows for comfort. PT resting in bed at this time with no complaints. VSS. PT medicated per NOV. Pills crushed and given in pudding.
[2021-07-22 22:54] VITALS: BP 139/64; PULSE 60; RESP 12; O2SAT 100
[2021-07-23] VITALS (9 sets, daily range): BP systolic 131–161; BP diastolic 65–84; PULSE 58–64; RESP 12–20; TEMP 36.1–37; O2SAT 98–100; BMI 25.4
--- NOTE | 2021-07-23 00:11 | PC.NURSE ---
Pt transferred into room 22 to await bed assignment. Pt sleeping in [facility], VSS at this time.
--- NOTE | 2021-07-23 03:04 | PC.NURSE ---
Minimal UO noted in suction container, bladder scan showing 64 ml of urine within bladder despite IV hydration. This RN assessing for incontinence due to decreased UO, pt noted to be incontinent of urine and liquid stool. Pt provided with reji care and a complete bed change, pt repositioned onto left side. VSS at this time, purewick in place, awaiting room assignment.
--- NOTE | 2021-07-23 04:36 | PC.NURSE ---
PT moved to room 22. Report given to Pranav CHOI.
[2021-07-23] MEDS: KCl 40 mEq in 0.9 % Sodium Chl 40 MEQ/1,000 ML IV.SOLN 80 MEQ IVCONT (06:43)
[2021-07-23 06:52] LABS: MANUAL DIFF FLAG NO
[2021-07-23 06:58] LABS: Basophils Percent Auto 0.2 % (0-2); Eosinophils Absolute Auto 0.3 X10*3/uL (0.0-0.4); Eosinophils Percent Auto 3.3 % (0-4); Hematocrit 42.8 % (37.0-47.0); Hemoglobin 13.9 g/dl (12.0-16.0); Imm Gran Abs Auto 0.02 X10*3/uL (0.00-0.03); Imm Gran Pct Auto 0.2 % (0.0-0.4); Lymphocytes Absolute Auto 1.5 X10*3/uL (1.2-4.9); Mean Corpuscular HGB Conc 32.5 g/dl (31.0-35.0); Mean Corpuscular Hemoglobin 29.6 pg (27.0-33.0); Mean Corpuscular Volume 91.3 fL (80.0-98.0); Mean Platelet Volume 11.1 fL (9.4-12.3); Monocytes Absolute Auto 0.7 X10*3/uL (0.1-1.2); Monocytes Percent Auto 7.8 % (2-11); Neutrophils Absolute Auto 6.1 x10*3/uL (2.0-8.3); Neutrophils Percent Auto 71.5 % (45-73); Platelet Count 210 X10*3/uL (160-400); Red Blood Count 4.69 X10*6/uL (4.20-5.50); Red Cell Distribution Width 13.1 % (11.0-16.0); White Blood Count 8.6 X10*3/uL (4.8-10.8)
[2021-07-23 07:20] LABS: Anion Gap 12 (12-20); Blood Urea Nitrogen 11 mg/dL (9-16); Calcium 8.2 mg/dL (8.4-10.2); Carbon Dioxide 25 mmol/L (22-29); Chloride 111 mmol/L (96-108); Creatinine Clr Calc Pharmacy 47.7; Estimated Glomerular Filt Rate > 60; Glucose Random 117 mg/dL (60-115); Potassium 3.9 mmol/L (3.3-5.1); Sodium 144 mmol/L (135-145)
[2021-07-23 08:14] LABS: Glucose, Whole Blood 84 mg/dL (60-115)
[2021-07-23] MEDS: Metoprolol Tartrate 50 MG TABLET PO ×2 (09:04→20:49)
[2021-07-23] MEDS: Venlafaxine HCl ER 150 MG CAP.ER.24H PO (09:05)
[2021-07-23] MEDS: Levothyroxine Sodium 112 MCG TABLET PO (09:05)
--- NOTE | 2021-07-23 09:12 | PC.NURSE ---
pt alert. responds when spoken to. pt took her morning meds with applesauce, no difficulty swallowing meds. Xerelto not loaded in ed pixis will contact pharmacy. 100ml urine in canister via [employer]. this senior medical writer spoke with pt's daughter Marbella pt aware. currently waiting on bed assignment.
--- NOTE | 2021-07-23 09:39 | PC.NURSE ---
report given to receiving RN. pt will be transported to room 444 by grain oilseed or pasture grower. pt alert. vss, pt denies pain.
--- NOTE | 2021-07-23 11:11 | P.PNIM_ITS ---
Subjective Subjective Date of Service: 07/23/21 Interval History: Seen and examined this morning Follow-up for metabolic encephalopathy Awake and alert this morning, seems to be a baseline, pleasantly confused with history of dementia Denies any pain, fever, chills Review of Systems Review of Systems: Yes all other systems are reviewed and are negative Constitutional Constitutional: Denies chills and Denies fever(s) Cardiovascular Cardiovascular: Denies chest pain Respiratory Respiratory: Denies cough Gastrointestinal Gastrointestinal: Denies abdominal pain Physical Exam Vital Signs: Vital Signs: Last Vital Signs Temp 97.9 F 07/23/21 10:38 Pulse 60 07/23/21 10:38 Resp 20 07/23/21 10:38 BP 131/70 07/23/21 10:38 Pulse Ox 99 07/23/21 10:38 Body Mass Index 25.5 Const: General: comfortable, no acute distress, alert and awake Nutritional Appearance: well nourished HENMT: Head: Yes normocephalic and Yes atraumatic Eyes: Sclerae: sclerae normal Pupils: Equal, round and reactive pupils present Resp: Effort & Inspection: normal respiratory effort and no respiratory distress Cardio: Rate: regular rate Rhythm: regular rhythm GI: Inspection: No distended Palpation (GI): Soft to palpation and nontender Neuro: Cranial nerves: Yes CN's II-XII intact bilaterally, Yes Equal, round and reactive pupils present and Yes Bilaterally intact EOM present Objective Data Active Medications Acetaminophen (Acetaminophen 325 Mg Tablet) 650 mg PO Q6H PRN PRN Reason: Pain, Mild (Pain Scale 1-3) Dextrose (Dextrose 50 % 25 Gm/50 Ml Vial) 25 gm IVPUSH Q15M PRN; Protocol PRN Reason: per Hypoglycemia Standing Ord. Docusate Sodium (Docusate Sodium 100 Mg Capsule) 100 mg PO DAILY PRN PRN Reason: Constipation Glucose (Glucose Gel 15 Gm Gel..Gram.) 15 gm PO Q15M PRN; Protocol PRN Reason: per Hypoglycemia Standing Ord. Potassium Chloride/Sodium Chloride () 40 meq in 1,000 mls @ 80 mls/hr IVCONT .[id number] [facility] Last Admin: 07/23/21 06:43 Dose: 80 mls/hr Documented by: TONE Ceftriaxone Sodium 1 gm/ (Sodium Chloride) 50 mls @ 100 mls/hr IV Q24H [facility] Last Infusion: 07/22/21 19:39 Dose: 0 mls/hr Documented by: ROB Insulin Human Lispro (Insulin Lispro 100 Unit/Ml 3 Ml Vial) 0 unit SUBCUT QIDACHS [facility]; Protocol Last Admin: 07/23/21 08:43 Dose: Not Given Documented by: BETH Non-Admin Reason: No Insulin Coverage Levothyroxine Sodium (Levothyroxine Sodium 112 Mcg Tablet) 112 mcg PO DAILY [facility] Last Admin: 07/23/21 09:05 Dose: 112 mcg Documented by: BETH Metoprolol Tartrate (Metoprolol Tartrate 50 Mg Tablet) 50 mg PO BID [facility]; Protocol Last Admin: 07/23/21 09:04 Dose: 50 mg Documented by: BETH Non-Formulary Medication (Isosorbide Mononitrate) 1 tab PO DAILY [facility] Ondansetron HCl (Ondansetron Hcl 4 Mg/2 Ml Vial) 4 mg IVPUSH Q8H PRN PRN Reason: Nausea and Vomiting Rivaroxaban (Rivaroxaban 20 Mg Tablet) 20 mg PO DAILY [facility] Sodium Chloride (0.9 % Sodium Chloride Flush 3 Ml Syringe) 3 ml IVFLUSH QSHIFT [facility] Last Admin: 07/23/21 08:57 Dose: Not Given Documented by: BETH Non-Admin Reason: IV Running Venlafaxine HCl (Venlafaxine Hcl Er 150 Mg Cap.Er.24h) 150 mg PO DAILY [facility] Last Admin: 07/23/21 09:05 Dose: 150 mg Documented by: BETH Labs CBC & Chem 7: 07/23/21 06:38 07/23/21 06:38 Labs: Laboratory Results - last 24 hr 07/22/21 07/22/21 07/22/21 14:38 14:38 14:38 MCV 89.1 MCH 30.2 MCHC 33.9 RDW 13.1 Plt Count 173 MPV 11.1 Immature Gran % (Auto) 0.3 Neut % (Auto) 71.0 Lymph % (Auto) 17.6 L [place] % (Auto) 8.0 Eos % (Auto) 3.0 Baso % (Auto) 0.1 Lymph # (Auto) 1.7 [place] # (Auto) 0.8 Eos # (Auto) 0.3 Baso # (Auto) 0.0 Abs Immat Gran (auto) 0.03 Absolute Neuts (auto) 6.8 Absolute Nucleated RBC 0.000 Nucleated RBC % (auto) 0.0 VBG pH VBG pCO2 VBG pO2 VBG HCO3 VBG O2 Saturation VBG Base Excess Anion Gap 10 L Estim Creat Clear Calc 43.1 Estimated GFR > 60 POC Glucose Random Glucose 136 H Lactic Acid 1.3 Calcium 8.3 L D Magnesium 1.8 Total Bilirubin 0.9 Direct Bilirubin 0.3 AST 13 D ALT 17 Alkaline Phosphatase 85 Troponin I High Sens Total Protein 5.3 L D Albumin 2.7 L D Lipase 6 L Urine Color Urine Appearance Urine pH Ur Specific [place] Urine Protein Urine Glucose (UA) Urine Ketones Urine Blood Urine Nitrite Ur Leukocyte Esterase Urine RBC Urine WBC Ur Squamous Epith Cells Urine Bacteria COVID-19 (DANNY) COVID-19 [employer] 07/22/21 07/22/21 07/22/21 14:38 14:38 14:43 MCV MCH MCHC RDW Plt Count MPV Immature Gran % (Auto) Neut % (Auto) Lymph % (Auto) [place] % (Auto) Eos % (Auto) Baso % (Auto) Lymph # (Auto) [place] # (Auto) Eos # (Auto) Baso # (Auto) Abs Immat Gran (auto) Absolute Neuts (auto) Absolute Nucleated RBC Nucleated RBC % (auto) VBG pH 7.53 H VBG pCO2 35 VBG pO2 67 VBG HCO3 30 H VBG O2 Saturation 93.0 VBG Base Excess 7.3 Anion Gap Estim Creat Clear Calc Estimated GFR POC Glucose Random Glucose Lactic Acid Calcium Magnesium Total Bilirubin Direct Bilirubin AST ALT Alkaline Phosphatase Troponin I High Sens 35.0 H* D Total Protein Albumin Lipase Urine Color Urine Appearance Urine pH Ur Specific [place] Urine Protein Urine Glucose (UA) Urine Ketones Urine Blood Urine Nitrite Ur Leukocyte Esterase Urine RBC Urine WBC Ur Squamous Epith Cells Urine Bacteria COVID-19 (DANNY) Negative COVID-19 [employer] Com See Note 07/22/21 07/22/21 07/23/21 16:00 20:56 06:38 MCV 91.3 MCH 29.6 MCHC 32.5 RDW 13.1 Plt Count 210 MPV 11.1 Immature Gran % (Auto) 0.2 Neut % (Auto) 71.5 Lymph % (Auto) 17.0 L [place] % (Auto) 7.8 Eos % (Auto) 3.3 Baso % (Auto) 0.2 Lymph # (Auto) 1.5 [place] # (Auto) 0.7 Eos # (Auto) 0.3 Baso # (Auto) 0.0 Abs Immat Gran (auto) 0.02 Absolute Neuts (auto) 6.1 Absolute Nucleated RBC 0.000 Nucleated RBC % (auto) 0.0 VBG pH VBG pCO2 VBG pO2 VBG HCO3 VBG O2 Saturation VBG Base Excess Anion Gap Estim Creat Clear Calc Estimated GFR POC Glucose 176 H Random Glucose Lactic Acid Calcium Magnesium Total Bilirubin Direct Bilirubin AST ALT Alkaline Phosphatase Troponin I High Sens Total Protein Albumin Lipase Urine Color YELLOW Urine Appearance CLOUDY Urine pH 6.0 Ur Specific [place] 1.020 Urine Protein 1+ H Urine Glucose (UA) NEG Urine Ketones NEG Urine Blood 3+ H Urine Nitrite NEG Ur Leukocyte Esterase 3+ H Urine RBC 15-29 H Urine WBC TNTC H Ur Squamous Epith Cells 2+ Urine Bacteria 3+ COVID-19 (DANNY) COVID-19 [employer] Com 07/23/21 07/23/21 06:38 08:10 MCV MCH MCHC RDW Plt Count MPV Immature Gran % (Auto) Neut % (Auto) Lymph % (Auto) [place] % (Auto) Eos % (Auto) Baso % (Auto) Lymph # (Auto) [place] # (Auto) Eos # (Auto) Baso # (Auto) Abs Immat Gran (auto) Absolute Neuts (auto) Absolute Nucleated RBC Nucleated RBC % (auto) VBG pH VBG pCO2 VBG pO2 VBG HCO3 VBG O2 Saturation VBG Base Excess Anion Gap 12 Estim Creat Clear Calc 47.7 Estimated GFR > 60 POC Glucose 84 Random Glucose 117 H Lactic Acid Calcium 8.2 L Magnesium Total Bilirubin Direct Bilirubin AST ALT Alkaline Phosphatase Troponin I High Sens Total Protein Albumin Lipase Urine Color Urine Appearance Urine pH Ur Specific [place] Urine Protein Urine Glucose (UA) Urine Ketones Urine Blood Urine Nitrite Ur Leukocyte Esterase Urine RBC Urine WBC Ur Squamous Epith Cells Urine Bacteria COVID-19 (DANNY) COVID-19 Clin Com Microbiology Microbiology Results: Microbiology 07/22/21 16:16 Urine Culture - Preliminary Urine Catheterized - Wray Catheter Culture too young to evaluate. Assessment and Plan (1) Acute hypokalemia: Status: Acute (2) Urinary tract infection: Status: Acute Assessment and Plan: This is an 81 old female with history of dementia, diabetes, atrial fibrillation on Xarelto, CAD, hypertension, combined systolic and diastolic CHF with EF of 40-45% was recently admitted to [facility] for UTI complicated by encephalopathy, hypernatremia, NSTEMI, MIMI who returns with lethargy UTI Previous urine culture growing ESBL negative E coli sensitive to ceftriaxone, discharged to facility on oral Ceftin no evidence of sepsis -IV ceftriaxone -follow repeat UCx, BCx Encephalopathy likely metabolic r/t UTI hypokalemia resolved with replacement DM hold Januvia -SSI Paroxysmal Atrial fibrillation Continue metoprolol, Xarelto Hypothyroidism Continue Synthroid Chronic combined systolic & diastolic HF Mood continue venlafaxine CAD continue imdur dvt ppx - xarelto code status - full code, confirmed with daughter at bedside attending - dr. benton dispo - back to [facility] when medically ready Quality Stroke Does the patient have a stroke diagnosis?: No VTE Prior VTE?: No VTE Risk Level:: Medical - moderate - high VTE Device Contraindication: N/A - Device Ordered VTE Drug Contraindication: N/A - Med Ordered
[2021-07-23 11:30] LABS: Glucose, Whole Blood 159 mg/dL (60-115)
[2021-07-23] MEDS: Rivaroxaban 20 MG TABLET PO (11:47)
[2021-07-23] MEDS: Insulin Lispro 100 UNIT/ML 3 ML VIAL SUBCUT ×2 (11:47→20:49)
[2021-07-23 16:12] LABS: Glucose, Whole Blood 143 mg/dL (60-115)
[2021-07-23] MEDS: cefTRIAXone sodium 1 GM in 0.9 % Sodium Chloride 50 ML IV (17:30)
[2021-07-23] MEDS: 0.9 % Sodium Chloride Flush 3 ML SYRINGE IVFLUSH ×2 (17:30→20:50)
[2021-07-23 20:02] LABS: Glucose, Whole Blood 159 mg/dL (60-115)
[2021-07-24 03:17] VITALS: BP 161/81; PULSE 60; RESP 18; TEMP 36; O2SAT 99
[2021-07-24 06:45] VITALS: BP 170/79; PULSE 60; RESP 18; TEMP 36.6; O2SAT 100
[2021-07-24 07:10] LABS: Glucose, Whole Blood 86 mg/dL (60-115)
--- NOTE | 2021-07-24 09:29 | MHC.CM.NN ---
spoke with pts daughter nam lang who confirmed that pt is from [facility] where she will return when she is dcd she is a [facility]
[2021-07-24 11:02] VITALS: BP 144/86; PULSE 60; RESP 19; TEMP 36.1; O2SAT 95
[2021-07-24 11:20] LABS: Glucose, Whole Blood 101 mg/dL (60-115)
[2021-07-24 11:22] VITALS: BP 144/86; PULSE 60
[2021-07-24] MEDS: Metoprolol Tartrate 50 MG TABLET PO ×2 (11:22→19:34)
[2021-07-24] MEDS: Venlafaxine HCl ER 150 MG CAP.ER.24H PO (11:22)
[2021-07-24] MEDS: Rivaroxaban 20 MG TABLET PO (11:22)
[2021-07-24] MEDS: Levothyroxine Sodium 112 MCG TABLET PO (11:22)
[2021-07-24] MEDS: 0.9 % Sodium Chloride Flush 3 ML SYRINGE IVFLUSH ×2 (11:22→17:09)
[2021-07-24 14:30] VITALS: BMI 25.4
[2021-07-24 15:37] VITALS: BP 170/90; PULSE 60; RESP 18; TEMP 36.7; O2SAT 99
--- NOTE | 2021-07-24 15:54 | P.PNIM_ITS ---
Subjective Subjective Date of Service: 07/24/21 <ERLINDA Reid - Last Filed: 07/24/21 15:59> 08/12/21 <Moncho Arredondo MD - Last Filed: 08/12/21 16:29> Interval History: seen and examined this morning follow up for uti awake and alert this morning no complaints <ERLINDA Reid - Last Filed: 07/24/21 15:59> Review of Systems Review of Systems: Yes all other systems are reviewed and are negative <ERLINDA Reid - Last Filed: 07/24/21 15:59> Constitutional Constitutional: Denies chills and Denies fever(s) <ERLINDA Reid - Last Filed: 07/24/21 15:59> Cardiovascular Cardiovascular: Denies chest pain <ERLINDA Reid - Last Filed: 07/24/21 15:59> Respiratory Respiratory: Denies cough <ERLINDA Reid - Last Filed: 07/24/21 15:59> Gastrointestinal Gastrointestinal: Denies abdominal pain <ERLINDA Reid - Last Filed: 07/24/21 15:59> Physical Exam Vital Signs: Vital Signs: Last Vital Signs Temp 98.1 F 07/24/21 15:37 Pulse 60 07/24/21 15:37 Resp 18 07/24/21 15:37 BP 170/90 H 07/24/21 15:37 Pulse Ox 99 07/24/21 15:37 Body Mass Index 25.4 <ERLINDA Reid - Last Filed: 07/24/21 15:59> Const: Other: unarousable to verbal or painful stimuli; appears comfortable <ERLINDA Reid - Last Filed: 07/24/21 15:59> General: comfortable, no acute distress, alert and awake <ERLINDA Reid - Last Filed: 07/24/21 15:59> Nutritional Appearance: well nourished <ERLINDA Reid - Last Filed: 07/24/21 15:59> HENMT: Head: Yes normocephalic and Yes atraumatic <ERLINDA Reid - Last Filed: 07/24/21 15:59> Eyes: Sclerae: sclerae normal <ERLINDA Reid - Last Filed: 07/24/21 15:59> Pupils: Equal, round and reactive pupils present <ERLINDA Reid - Last Filed: 07/24/21 15:59> Resp: Effort & Inspection: normal respiratory effort and no respiratory distress <ERLINDA Reid - Last Filed: 07/24/21 15:59> Cardio: Rate: regular rate <ERLINDA Reid - Last Filed: 07/24/21 15:59> Rhythm: regular rhythm and abnormal rhythm irregularly irregular <ERLINDA Reid - Last Filed: 07/24/21 15:59> GI: Inspection: No distended <ERLINDA Reid - Last Filed: 07/24/21 15:59> Palpation (GI): Soft to palpation and nontender <ERLINDA Reid - Last Filed: 07/24/21 15:59> Skin: Other: some mild ecchymosis to dorsal surface b/l hands <ERLINDA Reid - Last Filed: 07/24/21 15:59> Neuro: Cranial nerves: Yes CN's II-XII intact bilaterally, Yes Equal, round and reactive pupils present and Yes Bilaterally intact EOM present <ERLINDA Reid - Last Filed: 07/24/21 15:59> Extrem: Other: no lower extremity edema <ERLINDA Reid - Last Filed: 07/24/21 15:59> Objective Data Active Medications Acetaminophen (Acetaminophen 325 Mg Tablet) 650 mg PO Q6H PRN PRN Reason: Pain, Mild (Pain Scale 1-3) Dextrose (Dextrose 50 % 25 Gm/50 Ml Vial) 25 gm IVPUSH Q15M PRN; Protocol PRN Reason: per Hypoglycemia Standing Ord. Docusate Sodium (Docusate Sodium 100 Mg Capsule) 100 mg PO DAILY PRN PRN Reason: Constipation Glucose (Glucose Gel 15 Gm Gel..Gram.) 15 gm PO Q15M PRN; Protocol PRN Reason: per Hypoglycemia Standing Ord. Ceftriaxone Sodium 1 gm/ (Sodium Chloride) 50 mls @ 100 mls/hr IV Q24H NADER Last Infusion: 11/07/21 18:07 Dose: 0 mls/hr Documented by: JUAQUIN Insulin Human Lispro (Insulin Lispro 100 Unit/Ml 3 Ml Vial) 0 unit SUBCUT QIDACHS [facility]; Protocol Last Admin: 07/24/21 11:28 Dose: Not Given Documented by: QUANG Non-Admin Reason: No Insulin Coverage Levothyroxine Sodium (Levothyroxine Sodium 112 Mcg Tablet) 112 mcg PO DAILY [facility] Last Admin: 07/24/21 11:22 Dose: 112 mcg Documented by: QUANG Metoprolol Tartrate (Metoprolol Tartrate 50 Mg Tablet) 50 mg PO BID [facility]; Protocol Last Admin: 07/24/21 11:22 Dose: 50 mg Documented by: QUANG Non-Formulary Medication (Isosorbide Mononitrate) 1 tab PO DAILY [facility] Ondansetron HCl (Ondansetron Hcl 4 Mg/2 Ml Vial) 4 mg IVPUSH Q8H PRN PRN Reason: Nausea and Vomiting Rivaroxaban (Rivaroxaban 20 Mg Tablet) 20 mg PO DAILY [facility] Last Admin: 07/24/21 11:22 Dose: 20 mg Documented by: QUANG Sodium Chloride (0.9 % Sodium Chloride Flush 3 Ml Syringe) 3 ml IVFLUSH QSHIFT [facility] Last Admin: 07/24/21 11:22 Dose: 3 ml Documented by: QUANG Venlafaxine HCl (Venlafaxine Hcl Er 150 Mg Cap.Er.24h) 150 mg PO DAILY [facility] Last Admin: 07/24/21 11:22 Dose: 150 mg Documented by: QUANG <ERLINDA Reid - Last Filed: 07/24/21 15:59> Labs CBC & Chem 7: : 07/23/21 06:38 07/25/21 07:39 <ERLINDA Reid - Last Filed: 07/24/21 15:59> Labs: Laboratory Results - last 24 hr 07/23/21 07/23/21 07/24/21 16:07 19:57 07:07 POC Glucose 143 H 159 H 86 07/24/21 11:02 POC Glucose 101 <ERLINDA Reid - Last Filed: 07/24/21 15:59> Microbiology Microbiology Results: Microbiology 07/22/21 16:16 Urine Culture - Final Urine Catheterized - Wray Catheter 07/22/21 14:47 Blood Culture - Preliminary Blood - Venous No growth after 24 hours. 07/22/21 14:38 Blood Culture - Preliminary Blood - Venous No growth after 24 hours. 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% was recently admitted to [facility] for UTI complicated by encephalopathy, hypernatremia, NSTEMI, MIMI who returns with lethargy UTI Previous urine culture growing ESBL negative E coli sensitive to ceftriaxone, discharged to facility on oral Ceftin no evidence of sepsis -continue IV ceftriaxone -follow repeat UCx, BCx Encephalopathy improving likely metabolic r/t UTI hypokalemia resolved with replacement DM hold Januvia -SSI Paroxysmal Atrial fibrillation Continue metoprolol, Xarelto Hypothyroidism Continue Synthroid Chronic combined systolic & diastolic HF Mood continue venlafaxine CAD continue imdur dvt ppx - xarelto code status - full code, confirmed with daughter at bedside attending - dr. 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% was recently admitted to [facility] for UTI complicated by encephalopathy, hypernatremia, NSTEMI, MIMI who returns with lethargy UTI Previous urine culture growing ESBL negative E coli sensitive to ceftriaxone, discharged to facility on oral Ceftin no evidence of sepsis -continue IV ceftriaxone -follow repeat UCx, BCx Encephalopathy improving likely metabolic r/t UTI hypokalemia resolved with replacement DM hold Januvia -SSI Paroxysmal Atrial fibrillation Continue metoprolol, Xarelto Hypothyroidism Continue Synthroid Chronic combined systolic & diastolic HF Mood continue venlafaxine CAD continue imdur dvt ppx - xarelto code status - full code, confirmed with daughter at bedside attending - dr. benton dispo - back to [facility] when medically ready, likely tomorrow I saw patient and discussed finding with midlevel provider and i agree with the above <Moncho Arredondo MD - Last Filed: 08/12/21 16:29> Quality Stroke Does the patient have a stroke diagnosis?: No <ERLINDA Reid - Last Filed: 07/24/21 15:59> VTE Prior VTE?: No <ERLINDA Reid - Last Filed: 07/24/21 15:59> VTE Risk Level:: Medical - moderate - high <ERLINDA Reid - Last Filed: 07/24/21 15:59> VTE Device Contraindication: N/A - Device Ordered <ERLINDA Reid - Last Filed: 07/24/21 15:59> VTE Drug Contraindication: N/A - Med Ordered <ERLINDA Reid - Last Filed: 07/24/21 15:59>
[2021-07-24 16:39] LABS: Glucose, Whole Blood 117 mg/dL (60-115)
[2021-07-24] MEDS: cefTRIAXone sodium 1 GM in 0.9 % Sodium Chloride 50 ML IV (17:52)
[2021-07-24 19:21] VITALS: BP 163/72; PULSE 63; RESP 18; TEMP 36.1; O2SAT 100
[2021-07-24 19:33] LABS: Glucose, Whole Blood 139 mg/dL (60-115)
[2021-07-25] VITALS: BP 132/76; PULSE 85; RESP 18; TEMP 36.9; O2SAT 97
[2021-07-25 04:00] VITALS: BP 145/76; PULSE 80; RESP 18; TEMP 36; O2SAT 98
[2021-07-25 07:29] VITALS: BP 139/70; PULSE 79; RESP 18; TEMP 36.3; O2SAT 97
[2021-07-25 08:08] LABS: Glucose, Whole Blood 102 mg/dL (60-115)
[2021-07-25 08:29] LABS: Blood Urea Nitrogen 6 mg/dL (9-16); Calcium 8.4 mg/dL (8.4-10.2); Creatinine Clr Calc Pharmacy 58.5; Estimated Glomerular Filt Rate > 60; Glucose Random 132 mg/dL (60-115)
[2021-07-25 08:42] LABS: Anion Gap 13 (12-20); Carbon Dioxide 29 mmol/L (22-29); Chloride 103 mmol/L (96-108); Sodium 142 mmol/L (135-145)
--- NOTE | 2021-07-25 09:33 | PM.DS ---
DS: Providers Provider Date of Service: 07/25/21 Date of admission: 07/22/21 17:02 Date of discharge: 07/25/21 Primary care physician: Narinder Lawson MD Attending physician on discharge: Arthur Brantley Discharging clinician: Eve Hernández DS: Diagnosis Discharge Diagnosis (1) Urinary tract infection: Status: Acute (2) Acute hypokalemia: Status: Acute (3) Metabolic encephalopathy: Status: Acute DS: Summary Hospital Course Hospital Course: From H&P on day of admission This is an 81-year-old female with history of dementia who was recently hospitalized for UTI complicated by metabolic encephalopathy, hypernatremia type 2 NSTEMI and MIMI who was sent back to the hospital from [facility] due to lethargy.? She was admitted to [facility] on July 16 and discharged back to [facility] on July 20 with oral Ceftin for treatment of UTI? Her daughter saw her in the hospital prior to discharge and her mom was awake and alert, although confused at baseline due to her dementia.? This morning she was reportedly unarousable and lethargic and so was sent for evaluation.? In the emergency department she was afebrile, lab work was unremarkable with the exception a potassium of 2.9.? Urinalysis was again consistent with UTI.? She received a dose of IV levofloxacin as well as both oral and IV potassium replacement and the decision was made to readmit her for further management.? The patient is unarousable and unable to provide any review of systems. Patient was admitted to the hospital for management of encephalopathy, UTI and hypokalemia. Brain CT showed no acute abnormalities. Lab work was relatively unremarkable on day of admission. Her potassium was replaced, she was treated with gentle IV fluid rehydration. She was started on IV ceftriaxone. Urine culture was repeated but grew mixed vanessa likely secondary to recent treatment with oral Ceftin. Blood cultures have remained negative for 48 hours. Patient's mental status improved back toward baseline, she is awake alert and pleasantly confused. She should continue on 3 more days of oral Ceftin. She should continue her home dose of potassium supplementation. BMP should be repeated in 1 week and potassium supplementation should be adjusted as needed. Would recommend encouraging p.o. intake. Time Spent with Patient Time attestation: Total time spent providing and/or coordinating discharge services: Discharge coordination time: Greater than 30 minutes Quality: Stroke Does the patient have a stroke diagnosis?: No Physical Exam Vital Signs: Vital Signs: Last Vital Signs Temp 97.4 F 07/25/21 07:29 Pulse 79 07/25/21 07:29 Resp 18 07/25/21 07:29 BP 139/70 07/25/21 07:29 Pulse Ox 97 07/25/21 07:29 Body Mass Index 25.4 Const: General: comfortable, no acute distress, alert and awake HENMT: Other: dry mucous membranes Head: Yes normocephalic and Yes atraumatic Eyes: Sclerae: sclerae normal Pupils: Equal, round and reactive pupils present Resp: Effort & Inspection: normal respiratory effort and no respiratory distress Cardio: Rate: regular rate Rhythm: regular rhythm and abnormal rhythm irregularly irregular GI: Other: appears non-tender, no facial grimace with palpation; +bowel sounds Inspection: No distended Palpation (GI): Soft to palpation and nontender Skin: Other: some mild ecchymosis to dorsal surface b/l hands Neuro: Cranial nerves: Yes CN's II-XII intact bilaterally, Yes Equal, round and reactive pupils present and Yes Bilaterally intact EOM present DS: Data Data Completed and Pending Labs on day of discharge: Laboratory Results - last 24 hr 07/24/21 07/24/21 07/24/21 11:02 16:37 19:30 Sodium Potassium Chloride Carbon Dioxide Anion Gap BUN Creatinine Estim Creat Clear Calc Estimated GFR POC Glucose 101 117 H 139 H Random Glucose Calcium 07/25/21 07/25/21 07:32 07:39 Sodium 142 Potassium 3.0 L D Chloride 103 Carbon Dioxide 29 Anion Gap 13 BUN 6 L Creatinine 0.61 Estim Creat Clear Calc 58.5 Estimated GFR > 60 POC Glucose 102 Random Glucose 132 H Calcium 8.4 Preliminary micro results at discharge 07/22/21 14:47 Blood Culture - Preliminary Blood - Venous No growth after 48 hours. 07/22/21 14:38 Blood Culture - Preliminary Blood - Venous No growth after 48 hours. Discharge Plan Discharge Patient Disposition: Xfer [facility] Discharge Diagnosis: UTI hypokalemia encephalopathy Referrals: Narinder Lawson MD [Primary Care Provider] - 1 Week Discharge Medications: Continued potassium chloride 10 mEq capsule, extended release 4 cap PO DAILY RF: 0 isosorbide mononitrate 20 mg tablet 1 tab PO DAILY RF: 0 venlafaxine 150 mg capsule,extended release 24hr 1 cap PO DAILY RF: 0 metoprolol tartrate 50 mg tablet 1 tab PO BID RF: 0 insulin lispro [Humalog U-100 Insulin] 100 unit/mL solution See Protocol sliding scale dose subcut AC RF: 0 levothyroxine 112 mcg tablet 1 tab PO DAILY RF: 0 Januvia 25 mg tablet 1 tab PO DAILY RF: 0 Xarelto 20 mg tablet 1 tab PO DAILY RF: 0 multivitamin Tablet 1 tab PO DAILY RF: 0 cefuroxime axetil 500 mg tablet 500 mg PO Q12H 3 Days Qty: 6 RF: 0 Discharge Orders: Discharge Order (Routine); Ordered 07/25/21 Ordered By: Eve Hernández Activity on Discharge: As tolerated Stand Alone Forms: Patient Portal Discharge page Care Plan Goals: Resolution of UTI Health Concerns: Encephalopathy - resolved Low potassium - resolved Plan of Treatment: Complete 3 more days of oral ceftin Continue to take potassium supplementation Repeat BMP in 1 week and adjust potassium supplementation as needed Recommend 250 ml fluid 6 times per day with goal of 1500 ml fluid daily Assessment: see discharge summary
[2021-07-25 09:55] VITALS: BP 139/70; PULSE 79
[2021-07-25] MEDS: 0.9 % Sodium Chloride Flush 3 ML SYRINGE IVFLUSH (09:55)
[2021-07-25] MEDS: Metoprolol Tartrate 50 MG TABLET PO (09:55)
[2021-07-25] MEDS: Levothyroxine Sodium 112 MCG TABLET PO (09:56)
[2021-07-25] MEDS: Venlafaxine HCl ER 150 MG CAP.ER.24H PO (09:56)
[2021-07-25] MEDS: Rivaroxaban 20 MG TABLET PO (09:56)
[2021-07-25] MEDS: Potassium Chloride Packet 20 MEQ PACKET 40 MEQ PO (09:56)
[2021-07-25 09:59] VITALS: BP 123/88; PULSE 79
--- NOTE | 2021-07-25 10:14 | MHC.CM.PN ---
pts alexis browning notified of pts return to [facility]
== END 2021-07-25 11:35 | disposition skilled nursing facility (03) | DRG 689 ==
LOC: HO.ED 16:36 → HO.EDOVER 17:31 → HO.IMC 07-23 10:32
PROVIDERS: Admitting Provider Physician Assistant Medical; Emergency Provider Emergency Medicine; PCP Family Medicine; Visit Provider Physician Assistant Medical
DX: N39.0 Urinary tract infection, site not specified (principal); G93.41 Metabolic encephalopathy; I50.42 Chronic combined systolic (congestive) and diastolic (congestive) heart failure; E87.6 Hypokalemia; F03.90 Unspecified dementia, unspecified severity, without behavioral disturbance, psychotic disturbance, mood disturbance, and anxiety; I25.10 Atherosclerotic heart disease of native coronary artery without angina pectoris; I48.0 Paroxysmal atrial fibrillation; Z20.822 Contact with and (suspected) exposure to COVID-19; Z79.4 Long term (current) use of insulin; Z79.01 Long term (current) use of anticoagulants; Z79.890 Hormone replacement therapy; Z79.899 Other long term (current) drug therapy
CPT/HCPCS: 36415; 51798; 70450; 71045; 80048; 80076; 81001; 82803; 82947; 83605; 83690; 83735; 84484; 85025; 87040; 87086; 87635; 93005; 96361; 96365; 96366; 96375; 99285; J0696; J1956

== ENCOUNTER 2021-09-01 14:05 | Inpatient (IN) | payer MEDICARE, MEDICAID, SELFPAY ==
--- NOTE | 2021-09-01 | ECG_ITS ---
Test Reason : RHYTHM CHANGE Blood Pressure : / mmHG Vent. Rate : 120 BPM Atrial Rate : 000 BPM P-R Int : 000 ms QRS Dur : 128 ms QT Int : 354 ms P-R-T Axes : 000 -41 134 degrees QTc Int : 500 ms Rhythm shows atrial flutter with variable block with rapid ventricular response Left axis deviation Left bundle branch block Abnormal ECG When compared with ECG of 01-SEP-2021 14:39, Atrial flutter with RVR has replaced Electronic atrial pacemaker Vent. rate has increased BY 58 BPM Referred By: Katerin Gee Electronically Signed By:MARLON MOSLEY MD
--- NOTE | ~2021-09-01 | XR_ITS ---
EXAMINATION: XR CHEST CLINICAL INFORMATION: AMS COMPARISON: July 22, 2021 and studies dating back to March 16, 2015 TECHNIQUE: AP portable view of the chest was obtained. FINDINGS: Pacemaker seen in place. Heart normal size. No evidence of pulmonary edema. Coronary artery stent seen in place. There is a region of discoid scarring or atelectasis right base. No significant left lung disease is seen. There is an appearance of a spiculated lesion in the region of the aortopulmonic window but which is likely vascular in nature and related to the obliquity of the imaging. XR/XR chest 1V IMPRESSION: No significant acute parenchymal disease appreciated.
--- NOTE | ~2021-09-01 | CT_ITS ---
EXAMINATION: CT HEAD WITHOUT CONTRAST CLINICAL INFORMATION: AMS COMPARISON: None TECHNIQUE: Contiguous axial imaging was performed from the skull base to vertex without intravenous administration of contrast. This CT examination was performed using dose optimization techniques as appropriate, variously including the following: *Automated exposure control *Adjustment of mA and/or kV according to patient size (this includes techniques or standardized protocols for targeted exams where dose is matched to indication/reason for exam; i.e. extremities or head) *Use of iterative reconstruction technique DLP: 536 mGy-cm FINDINGS: There is no evidence of acute intracranial hemorrhage or territorial infarction. No abnormal mass effect or midline shift is seen. [place] to white matter differentiation is well preserved. No extra-axial fluid collections are identified. The lateral ventricles are symmetrical in size but mildly enlarged. There is diffuse periventricular hypodensity. There is bibasilar ganglia and right thalamic lacunar infarcts The osseous structures and soft tissues are normal. The mastoid air cells and visualized portions of the paranasal sinuses are well aerated. 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 Prominent bilateral lateral ventricles and extensive chronic small vessel ischemic changes are stable.
--- NOTE | ~2021-09-01 | CT_ITS ---
EXAMINATION: CT HEAD WITHOUT CONTRAST CLINICAL INFORMATION: Seizure COMPARISON: Head CT from 09/01/2021 TECHNIQUE: Contiguous axial imaging was performed from the skull base to vertex without intravenous administration of contrast. This CT examination was performed using dose optimization techniques as appropriate, variously including the following: *Automated exposure control *Adjustment of mA and/or kV according to patient size (this includes techniques or standardized protocols for targeted exams where dose is matched to indication/reason for exam; i.e. 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 There is an old small focus of encephalomalacia of the right cerebellar hemisphere. An infarct involving the superior left cerebellar hemisphere is new compared to 07/22/2021, but not appreciably changed compared to 09/01/2021. Compared to 09/01/2021, there is a new region of loss of krishnan-white matter differentiation involving the middle and inferior gyri of the left frontal lobe. No significant mass effect or hemorrhage. No extra-axial fluid collection. Chronic atrophy of brain parenchyma with commensurate prominence of ventricles and sulci; no hydrocephalus. The calvarium is intact. The orbits and globes are unremarkable. The visualized paranasal sinuses and mastoid air cells are well aerated. There is calcium deposition (likely calcium pyrophosphate dihydrate crystal deposition) along the transverse ligament posterior to the dens. 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 CT/CT head/brain wo con IMPRESSION: * Chronic cerebral atrophy and chronic small vessel ischemic changes of the supratentorial white matter. * There is an acute or subacute infarct in the left middle cerebral artery territory with loss of krishnan-white matter differentiation in the left frontal lobe, a new finding compared to 09/01/2021. No hemorrhage or other acute pathology.
--- NOTE | 2021-09-01 14:21 | ED_ITS ---
HPI - Weakness General Chief complaint: General Medical Stated complaint: LETHARGY,ABNORMAL LABS Time Seen by Provider: 09/01/21 14:13 Source: EMS and old records reviewed Mode of arrival: EMS Limitations: altered mental status (dementia) History of Present Illness HPI Narrative: 08/29 tested for UTI - C grew out pseudomonas and klebsiella both S to cephalosporins notes states she is on ceftin 500mg BID Complaint: generalized weakness (not eating or drinking) and lack of energy Onset (ago): day(s) (3) Duration: progressively worsening Location: generalized Migration: none Severity: moderate Quality: dull Relieving factors: none Exacerbating factors: none Context: recent illness (dx with UTI) Associated symptoms: loss of appetite Related Data Home Medications Medication Instructions Recorded Confirmed insulin lispro 100 unit/mL See Protocol SUBCUT AC 07/16/21 07/22/21 subcutaneous solution (Humalog U-100 Insulin) isosorbide mononitrate 20 mg tablet 1 tab PO DAILY 07/16/21 07/22/21 levothyroxine 112 mcg tablet 1 tab PO DAILY 07/16/21 07/22/21 metoprolol tartrate 50 mg tablet 1 tab PO BID 07/16/21 07/22/21 potassium chloride 10 mEq 4 cap PO DAILY 07/16/21 07/22/21 capsule,extended release rivaroxaban 20 mg tablet (Xarelto) 1 tab PO DAILY 07/16/21 07/22/21 sitagliptin 25 mg tablet (Januvia) 1 tab PO DAILY 07/16/21 07/22/21 venlafaxine 150 mg 1 cap PO DAILY 07/16/21 07/22/21 capsule,extended release 24 hr multivitamin 1 tab PO DAILY 07/22/21 07/22/21 Previous Rx's Medication Instructions Recorded cefuroxime axetil 500 mg tablet 500 mg PO Q12H 3 Days #6 tab 07/25/21 Allergies Allergy/AdvReac Type Severity Reaction Status Date / Time No Known Allergies Allergy Mild NONE Unverified 06/02/20 16:28 sesame seed [SESAME SEED] Allergy Unknown UNK Unverified 06/07/20 08:31 spider bites Allergy Unknown severe Uncoded 04/22/20 00:00 Review of Systems Review of Systems: ROS unable to be obtained due to altered mental status PMFSH Past Medical History Medical History Breast cancer CAD (coronary artery disease) Chronic combined systolic and diastolic CHF (congestive heart failure) Dementia Diabetes mellitus HTN (hypertension) Hypothyroid LBBB (left bundle branch block) Nephrolithiasis Paroxysmal A-fib Presence of stent in LAD coronary artery Surgical History S/P cholecystectomy Status post cardiac pacemaker procedure Family History Family History Father CAD (coronary artery disease) Diabetes Mother CAD (coronary artery disease) Social History Social History Household Members: Other Household Members Other:: residents Housing: Jail Do you presently have visiting nurse or other home services: Yes Unable to assess alcohol history related to: Unable to respond Alcohol intake: never Patient Tobacco Use Status: Never used Tobacco Advance Directives: Yes Advance Directives on File: Yes Advance Directives Date on File: 07/17/21 service: No Current occupational status: retired Physical Exam Vital Signs: Vital Signs: Last Vital Signs Temp 98.6 F 09/01/21 14:31 Pulse 70 09/01/21 14:31 Resp 14 09/01/21 14:31 BP 151/79 H 09/01/21 14:31 Pulse Ox 100 09/01/21 14:31 BMI result Body Mass Index 22.3 Appearance: Alert. tracks with eyes. No acute distress. Eyes: Pupils equal, round and reactive to light. ENT: Pharynx mild dry MM Neck: Normal inspection. Neck supple. CVS: irregular heart rate and rhythm. Pulses normal. Respiratory: No respiratory distress. Breath sounds normal. Abdomen: Soft and nontender. - no obvious grimace Rectal: large amount of brown liquid stool noted Skin: Skin warm and dry. pale skin color. Extremities: No lower extremity edema. No calf ttp Neuro: not speaking tracks with eyes, cannot participate Course Course Course Narrative: pateint to be admitted for c diff - has UTI is on ceftin orally given dose today hospitalist aware - plan is to defer any further antibiotics to hospitalist at their request MDM - Weakness MDM Narrative Medical decision making narrative: 81 yo female with hx of PAF on xarelto, hypothyroidism, DM, HTN, UTI on 08/19 cano S Pseudomonas and Kleb was on ceftin 500mg BID brought in for weakness, lethargy and poor PO intake - at this time has large amount of diarrhea will obtain repeat UA, labs, cultures, hydrate, c diff study, CT head for ICH - dispo per results and findings. Lab Data Result diagrams: 09/01/21 14:52 09/01/21 15:25 Labs: Lab Results 09/01/21 09/01/21 09/01/21 Range/Units 14:45 14:51 14:52 WBC 8.4 (4.8-10.8) X10*3/uL RBC 5.49 (4.20-5.50) X10*6/uL Hgb 16.5 H (12.0-16.0) g/dl Hct 50.2 H (37.0-47.0) % MCV 91.4 (80.0-98.0) fL MCH 30.1 (27.0-33.0) pg MCHC 32.9 (31.0-35.0) g/dl RDW 13.6 (11.0-16.0) % Plt Count 224 (160-400) X10*3/uL MPV 10.3 (9.4-12.3) fL Immature Gran % (Auto) 0.4 (0.0-0.4) % Neut % (Auto) 65.7 (45-73) % Lymph % (Auto) 23.2 (20-40) % Garrett % (Auto) 8.3 (2-11) % Eos % (Auto) 1.9 (0-4) % Baso % (Auto) 0.5 (0-2) % Lymph # (Auto) 2.0 (1.2-4.9) X10*3/uL Garrett # (Auto) 0.7 (0.1-1.2) X10*3/uL Eos # (Auto) 0.2 (0.0-0.4) X10*3/uL Baso # (Auto) 0.0 (0.0-0.2) X10*3/uL Abs Immat Gran (auto) 0.03 (0.00-0.03) X10*3/uL Absolute Neuts (auto) 5.5 (2.0-8.3) x10*3/uL Absolute Nucleated RBC 0.000 (0.0-0.012) X10*3/uL Nucleated RBC % (auto) 0.0 (0.0-0.2) /100WBC VBG pH (7.32-7.43) VBG pCO2 mmHg VBG pO2 mmHg VBG HCO3 (22-26) mmol/L VBG O2 Saturation % VBG Base Excess mmol/L Sodium Cancelled Potassium Cancelled Chloride Cancelled Carbon Dioxide Cancelled Anion Gap Cancelled BUN Cancelled Creatinine Cancelled Estim Creat Clear Calc Cancelled Estimated GFR Cancelled Random Glucose Cancelled Lactic Acid (0.5-2.0) mmol/L Calcium Cancelled Magnesium Cancelled Total Bilirubin Cancelled Direct Bilirubin Cancelled AST Cancelled ALT Cancelled Alkaline Phosphatase Cancelled Troponin I High Sens (<3.5-17.0) ng/L Total Protein Cancelled Albumin Cancelled Lipase Cancelled TSH (0.32-4.0) uIU/mL Urine Color Urine Appearance Urine pH (5.0-8.0) Ur Specific [place] (1.005-1.025) Urine Protein (NEG-TRACE) MG/DL Urine Glucose (UA) (NEG) MG/DL Urine Ketones (NEG) MG/DL Urine Blood (NEG) Urine Nitrite (NEG) Ur Leukocyte Esterase (NEG) Urine RBC (0) /HPF Urine WBC (0-4) /HPF Ur Squamous Epith Cells /LPF Calcium Oxalate Crystal /LPF Urine Bacteria /LPF C. difficile Tox B Gene POSITIVE A* (Negative) COVID-19 (DANNY) (Negative) COVID-19 Clin Com 09/01/21 09/01/21 09/01/21 Range/Units 15:07 15:07 15:07 WBC (4.8-10.8) X10*3/uL RBC (4.20-5.50) X10*6/uL Hgb (12.0-16.0) g/dl Hct (37.0-47.0) % MCV (80.0-98.0) fL MCH (27.0-33.0) pg MCHC (31.0-35.0) g/dl RDW (11.0-16.0) % Plt Count (160-400) X10*3/uL MPV (9.4-12.3) fL Immature Gran % (Auto) (0.0-0.4) % Neut % (Auto) (45-73) % Lymph % (Auto) (20-40) % Garrett % (Auto) (2-11) % Eos % (Auto) (0-4) % Baso % (Auto) (0-2) % Lymph # (Auto) (1.2-4.9) X10*3/uL [place] # (Auto) (0.1-1.2) X10*3/uL Eos # (Auto) (0.0-0.4) X10*3/uL Baso # (Auto) (0.0-0.2) X10*3/uL Abs Immat Gran (auto) (0.00-0.03) X10*3/uL Absolute Neuts (auto) (2.0-8.3) x10*3/uL Absolute Nucleated RBC (0.0-0.012) X10*3/uL Nucleated RBC % (auto) (0.0-0.2) /100WBC VBG pH (7.32-7.43) VBG pCO2 mmHg VBG pO2 mmHg VBG HCO3 (22-26) mmol/L VBG O2 Saturation % VBG Base Excess mmol/L Sodium Potassium Chloride Carbon Dioxide Anion Gap BUN Creatinine Estim Creat Clear Calc Estimated GFR Random Glucose Lactic Acid 1.7 (0.5-2.0) mmol/L Calcium Magnesium Total Bilirubin Direct Bilirubin AST ALT Alkaline Phosphatase Troponin I High Sens 31.5 H (<3.5-17.0) ng/L Total Protein Albumin Lipase TSH (0.32-4.0) uIU/mL Urine Color Urine Appearance Urine pH (5.0-8.0) Ur Specific [place] (1.005-1.025) Urine Protein (NEG-TRACE) MG/DL Urine Glucose (UA) (NEG) MG/DL Urine Ketones (NEG) MG/DL Urine Blood (NEG) Urine Nitrite (NEG) Ur Leukocyte Esterase (NEG) Urine RBC (0) /HPF Urine WBC (0-4) /HPF Ur Squamous Epith Cells /LPF Calcium Oxalate Crystal /LPF Urine Bacteria /LPF C. difficile Tox B Gene (Negative) COVID-19 (DANNY) Negative (Negative) COVID-19 Clin Com See Note 09/01/21 09/01/21 09/01/21 Range/Units 15:11 15:25 15:28 WBC (4.8-10.8) X10*3/uL RBC (4.20-5.50) X10*6/uL Hgb (12.0-16.0) g/dl Hct (37.0-47.0) % MCV (80.0-98.0) fL MCH (27.0-33.0) pg MCHC (31.0-35.0) g/dl RDW (11.0-16.0) % Plt Count (160-400) X10*3/uL MPV (9.4-12.3) fL Immature Gran % (Auto) (0.0-0.4) % Neut % (Auto) (45-73) % Lymph % (Auto) (20-40) % Garrett % (Auto) (2-11) % Eos % (Auto) (0-4) % Baso % (Auto) (0-2) % Lymph # (Auto) (1.2-4.9) X10*3/uL [place] # (Auto) (0.1-1.2) X10*3/uL Eos # (Auto) (0.0-0.4) X10*3/uL Baso # (Auto) (0.0-0.2) X10*3/uL Abs Immat Gran (auto) (0.00-0.03) X10*3/uL Absolute Neuts (auto) (2.0-8.3) x10*3/uL Absolute Nucleated RBC (0.0-0.012) X10*3/uL Nucleated RBC % (auto) (0.0-0.2) /100WBC VBG pH 7.44 H (7.32-7.43) VBG pCO2 48 mmHg VBG pO2 36 mmHg VBG HCO3 33 H (22-26) mmol/L VBG O2 Saturation 58.0 % VBG Base Excess 8.0 mmol/L Sodium 143 Potassium 3.6 Chloride 103 Carbon Dioxide 30 H Anion Gap 14 BUN 8 L Creatinine 0.86 Estim Creat Clear Calc 42.8 Estimated GFR > 60 Random Glucose 169 H Lactic Acid (0.5-2.0) mmol/L Calcium 9.1 D Magnesium 1.7 Total Bilirubin 1.0 Direct Bilirubin 0.3 AST 15 ALT 8 Alkaline Phosphatase 71 Troponin I High Sens (<3.5-17.0) ng/L Total Protein 6.2 L Albumin 3.0 L Lipase < 4 L TSH 2.99 (0.32-4.0) uIU/mL Urine Color YELLOW Urine Appearance TURBID Urine pH 6.5 (5.0-8.0) Ur Specific [place] 1.020 (1.005-1.025) Urine Protein 1+ H (NEG-TRACE) MG/DL Urine Glucose (UA) NEG (NEG) MG/DL Urine Ketones NEG (NEG) MG/DL Urine Blood 3+ H (NEG) Urine Nitrite NEG (NEG) Ur Leukocyte Esterase 3+ H (NEG) Urine RBC 15-29 H (0) /HPF Urine WBC TNTC H (0-4) /HPF Ur Squamous Epith Cells TRACE /LPF Calcium Oxalate Crystal 1+ /LPF Urine Bacteria 1+ /LPF C. difficile Tox B Gene (Negative) COVID-19 (DANNY) (Negative) COVID-19 Clin Com ECG Data Attestation: I personally reviewed and interpreted this ECG as follows: ECG interpretation date: 09/01/21 ECG interpretation time: 14:47 Interpretation: Rate: 62 Rhythm: atrial paced Garner: left Normal P waves. Normal JERRICA. LBBB ST T wave : T waves tall anterior leads qTC: normal prior studies: no sig change from prio The study has been interpreted contemporaneously by me. . Discharge Plan Discharge Clinical Impression: Weakness, C. difficile colitis, Acute UTI Patient Disposition: Admitted As Inpatient
--- NOTE | 2021-09-01 14:23 | ECG_ITS ---
Test Reason : WEAKNESS Blood Pressure : / mmHG Vent. Rate : 062 BPM Atrial Rate : 062 BPM P-R Int : 170 ms QRS Dur : 122 ms QT Int : 448 ms P-R-T Axes : -02 -34 087 degrees QTc Int : 454 ms Atrial-paced rhythm Left axis deviation Left bundle branch block Abnormal ECG When compared with ECG of 22-JUL-2021 14:25, Electronic atrial pacemaker has replaced atrial flutter Vent. rate has decreased BY 32 BPM QT has shortened Referred By: Katerin Gee Electronically Signed By:MARLON MOSLEY MD
[2021-09-01 14:31] VITALS: BP 125/83; BP 151/79; PULSE 68; PULSE 70; RESP 14; TEMP 37; O2SAT 100; O2SAT 97; BMI 22.3
[2021-09-01 14:58] LABS: MANUAL DIFF FLAG NO
[2021-09-01 15:00] LABS: Basophils Percent Auto 0.5 % (0-2); Eosinophils Absolute Auto 0.2 X10*3/uL (0.0-0.4); Eosinophils Percent Auto 1.9 % (0-4); Hematocrit 50.2 % (37.0-47.0); Hemoglobin 16.5 g/dl (12.0-16.0); Imm Gran Abs Auto 0.03 X10*3/uL (0.00-0.03); Imm Gran Pct Auto 0.4 % (0.0-0.4); Lymphocytes Percent Auto 23.2 % (20-40); Mean Corpuscular HGB Conc 32.9 g/dl (31.0-35.0); Mean Corpuscular Hemoglobin 30.1 pg (27.0-33.0); Mean Corpuscular Volume 91.4 fL (80.0-98.0); Mean Platelet Volume 10.3 fL (9.4-12.3); Monocytes Absolute Auto 0.7 X10*3/uL (0.1-1.2); Monocytes Percent Auto 8.3 % (2-11); Neutrophils Absolute Auto 5.5 x10*3/uL (2.0-8.3); Neutrophils Percent Auto 65.7 % (45-73); Platelet Count 224 X10*3/uL (160-400); Red Blood Count 5.49 X10*6/uL (4.20-5.50); Red Cell Distribution Width 13.6 % (11.0-16.0); White Blood Count 8.4 X10*3/uL (4.8-10.8)
[2021-09-01 15:17] LABS: VBG HCO3 33 mmol/L (22-26); VBG pCO2 48 mmHg; VBG pH 7.44 (7.32-7.43); VBG pO2 36 mmHg
[2021-09-01 15:19] LABS: Venous Blood Gas Refer to POC result
[2021-09-01 15:25] LABS: Lactic Acid 1.7 mmol/L (0.5-2.0)
[2021-09-01 15:31] LABS: COVID-19 Test Negative (Negative)
[2021-09-01 15:34] LABS: Troponin-I High Sensitivity 31.5 ng/L (<3.5-17.0)
[2021-09-01 15:38] LABS: TSH reflex Free T4 2.99 uIU/mL (0.32-4.0)
[2021-09-01 15:50] LABS: Alanine Aminotransferase 8 U/L (0-31); Alkaline Phosphatase 71 U/L (39-117); Anion Gap 14 (12-20); Aspartate Amino Transferase 15 U/L (5-31); Bilirubin Direct 0.3 mg/dL (0.0-0.5); Blood Urea Nitrogen 8 mg/dL (9-16); Calcium 9.1 mg/dL (8.4-10.2); Carbon Dioxide 30 mmol/L (22-29); Chloride 103 mmol/L (96-108); Creatinine Clr Calc Pharmacy 42.8; Estimated Glomerular Filt Rate > 60; Glucose Random 169 mg/dL (60-115); Lipase < 4 U/L (8-78); Magnesium 1.7 mg/dL (1.6-2.6); Potassium 3.6 mmol/L (3.3-5.1); Sodium 143 mmol/L (135-145); Total Protein 6.2 g/dL (6.5-8.0)
[2021-09-01 15:51] LABS: Appearance Urine TURBID; Color Urine YELLOW; Glucose Urine UA NEG (NEG); Nitrite Urine NEG (NEG); PH 6.5 (5.0-8.0); Urine Blood 3+ (NEG); Urine Ketones NEG (NEG); Urine Protein 1+ MG/DL (NEG-TRACE)
[2021-09-01 15:51] LABS: CDiff Gene PCR POSITIVE (Negative)
[2021-09-01 15:54] LABS: Leukocyte Esterase Urine 3+ (NEG); UACC Culture Trigger YES
[2021-09-01 16:10] LABS: Calcium Oxalate Crystals Urine 1+ /LPF; WBC Urine TNTC /HPF (0-4)
[2021-09-01 16:11] LABS: Squamous Epithelial Cell Urine TRACE /LPF
[2021-09-01 16:12] LABS: Bacteria Urine 1+ /LPF
[2021-09-01] MEDS: 0.9 % Sodium Chloride 500 ML IV (16:20)
--- NOTE | 2021-09-01 16:20 | P.HPHOSP_ITS ---
History of Present Illness Date of Service: 09/01/21 Chief Complaint: Diarrhea, generalized weakness An 81 years old lady with PMH of diabetes, CHF, HTN, PAF among others who presented to the hospital from SNF with increased weakness and diarrhea. The patient was diagnosed on the 29 of August with UTI secondary to Klebsiella and Pseudomonas. Treated with Ceftin for the last 3 days. She started to have diarrhea episodes associated with weakness. The patient is advanced sleep demented and content add much to the history so it was taken in from medical staff and EMS report. Admitted for further evaluation and treatment. Review of Systems Review of Systems: No fever, chills but reports generalized weakness No chest pain, palpitation No shortness of breath or coughing No abdominal pain, nausea or vomiting but reporting diarrhea No urinary symptoms Not over of any rash or wounds PMFSH Medical History Breast cancer CAD (coronary artery disease) Chronic combined systolic and diastolic CHF (congestive heart failure) Dementia Diabetes mellitus HTN (hypertension) Hypothyroid LBBB (left bundle branch block) Nephrolithiasis Paroxysmal A-fib Presence of stent in LAD coronary artery Family History Father CAD (coronary artery disease) Diabetes Mother CAD (coronary artery disease) Surgical History S/P cholecystectomy Status post cardiac pacemaker procedure Social History Household Members: Other Household Members Other:: residents Housing: [facility] Do you presently have visiting nurse or other home services: Yes Unable to assess alcohol history related to: Unable to respond Alcohol intake: never Patient Tobacco Use Status: Never used Tobacco Use of substances other than those prescribed or required for medical reasons: No Advance Directives: Yes Advance Directives on File: Yes Advance Directives Date on File: 07/17/21 service: No Current occupational status: retired Meds Allergies Allergy/AdvReac Type Severity Reaction Status Date / Time No Known Allergies Allergy Mild NONE Unverified 06/02/20 16:28 sesame seed [SESAME SEED] Allergy Unknown UNK Unverified 06/07/20 08:31 spider bites Allergy Unknown severe Uncoded 08/07/20 00:00 Active Medications: Current Medications Acetaminophen (Acetaminophen 325 Mg Tablet) 650 mg PO Q6H PRN PRN Reason: Pain, Mild (Pain Scale 1-3) Sodium Chloride (Ns) 1,000 mls @ 100 mls/hr IVCONT .Q10H NADER Sodium Chloride (Ns) 1,000 mls @ 100 mls/hr IVCONT .Q10H NADER Insulin Human Lispro (Insulin Lispro 100 Unit/Ml 3 Ml Vial) 0 unit SUBCUT QIDACHS COUNT INCLUDES THE [facility]; Protocol Ondansetron HCl (Ondansetron Hcl 4 Mg/2 Ml Vial) 4 mg IVPUSH Q8H PRN PRN Reason: Nausea and Vomiting Pharmacy Consult (Consult Rx Perform Med Rec) 1 each MISCELLANE ONCE PRN PRN Reason: Consult order Sodium Chloride (0.9 % Sodium Chloride Flush 3 Ml Syringe) 3 ml IVFLUSH QSHIFT COUNT INCLUDES THE [facility] Home Medications Medication Instructions Recorded Confirmed Last Taken Type isosorbide mononitrate 20 mg tablet 1 tab PO DAILY@0800 07/16/21 09/01/21 Unknown History levothyroxine 112 mcg tablet 1 tab PO DAILY@0600 07/16/21 09/01/21 Unknown History metoprolol tartrate 50 mg tablet 1 tab PO BID 07/16/21 09/01/21 Unknown History potassium chloride 10 mEq 4 cap PO DAILY@1200 07/16/21 09/01/21 Unknown History capsule,extended release rivaroxaban 20 mg tablet (Xarelto) 1 tab PO DAILY@2000 07/16/21 09/01/21 Unknown History Physical Exam Vital Signs and Narrative: Vital Signs: Last Vital Signs Temp 98.6 F 09/01/21 14:31 Pulse 70 09/01/21 14:31 Resp 14 09/01/21 14:31 BP 151/79 H 09/01/21 14:31 Pulse Ox 100 09/01/21 14:31 BMI result Body Mass Index 22.3 Const: Other: Constitutional : Alert, disoriented not in distress Neck : Normal inspection, Supple Cardiovascular : RRR, S1 S2, no lower extremity edema Respiratory : Fair bilateral air entry, no crackles, wheezes or rhonchi Gastrointestinal: soft, lax, Normal bowel sounds, mild tenderness over the left lower quadrant Skin : Warm, Dry Neurological : Alert, disoriented, generalized weakness blood No focal deficit appreciated Results Labs CBC and Chem 7: 09/02/21 07:10 09/02/21 07:10 Labs: Laboratory Results - last 24 hr 09/01/21 09/01/21 09/01/21 14:45 14:51 14:52 MCV 91.4 MCH 30.1 MCHC 32.9 RDW 13.6 Plt Count 224 MPV 10.3 Immature Gran % (Auto) 0.4 Neut % (Auto) 65.7 Lymph % (Auto) 23.2 [place] % (Auto) 8.3 Eos % (Auto) 1.9 Baso % (Auto) 0.5 Lymph # (Auto) 2.0 [place] # (Auto) 0.7 Eos # (Auto) 0.2 Baso # (Auto) 0.0 Abs Immat Gran (auto) 0.03 Absolute Neuts (auto) 5.5 Absolute Nucleated RBC 0.000 Nucleated RBC % (auto) 0.0 VBG pH VBG pCO2 VBG pO2 VBG HCO3 VBG O2 Saturation VBG Base Excess Anion Gap Cancelled Estim Creat Clear Calc Cancelled Estimated GFR Cancelled Random Glucose Cancelled Lactic Acid Calcium Cancelled Magnesium Cancelled Total Bilirubin Cancelled Direct Bilirubin Cancelled AST Cancelled ALT Cancelled Alkaline Phosphatase Cancelled Troponin I High Sens Total Protein Cancelled Albumin Cancelled Lipase Cancelled TSH Urine Color Urine Appearance Urine pH Ur Specific [place] Urine Protein Urine Glucose (UA) Urine Ketones Urine Blood Urine Nitrite Ur Leukocyte Esterase Urine RBC Urine WBC Ur Squamous Epith Cells Calcium Oxalate Crystal Urine Bacteria C. difficile Tox B Gene POSITIVE A* COVID-19 (DANNY) COVID-19 Clin Com 09/01/21 09/01/21 09/01/21 15:07 15:07 15:07 MCV MCH MCHC RDW Plt Count MPV Immature Gran % (Auto) Neut % (Auto) Lymph % (Auto) [place] % (Auto) Eos % (Auto) Baso % (Auto) Lymph # (Auto) [place] # (Auto) Eos # (Auto) Baso # (Auto) Abs Immat Gran (auto) Absolute Neuts (auto) Absolute Nucleated RBC Nucleated RBC % (auto) VBG pH VBG pCO2 VBG pO2 VBG HCO3 VBG O2 Saturation VBG Base Excess Anion Gap Estim Creat Clear Calc Estimated GFR Random Glucose Lactic Acid 1.7 Calcium Magnesium Total Bilirubin Direct Bilirubin AST ALT Alkaline Phosphatase Troponin I High Sens 31.5 H Total Protein Albumin Lipase TSH Urine Color Urine Appearance Urine pH Ur Specific [place] Urine Protein Urine Glucose (UA) Urine Ketones Urine Blood Urine Nitrite Ur Leukocyte Esterase Urine RBC Urine WBC Ur Squamous Epith Cells Calcium Oxalate Crystal Urine Bacteria C. difficile Tox B Gene COVID-19 (DANNY) Negative COVID-19 Clin Com See Note 09/01/21 09/01/21 09/01/21 15:11 15:25 15:28 MCV MCH MCHC RDW Plt Count MPV Immature Gran % (Auto) Neut % (Auto) Lymph % (Auto) [place] % (Auto) Eos % (Auto) Baso % (Auto) Lymph # (Auto) [place] # (Auto) Eos # (Auto) Baso # (Auto) Abs Immat Gran (auto) Absolute Neuts (auto) Absolute Nucleated RBC Nucleated RBC % (auto) VBG pH 7.44 H VBG pCO2 48 VBG pO2 36 VBG HCO3 33 H VBG O2 Saturation 58.0 VBG Base Excess 8.0 Anion Gap 14 Estim Creat Clear Calc 42.8 Estimated GFR > 60 Random Glucose 169 H Lactic Acid Calcium 9.1 D Magnesium 1.7 Total Bilirubin 1.0 Direct Bilirubin 0.3 AST 15 ALT 8 Alkaline Phosphatase 71 Troponin I High Sens Total Protein 6.2 L Albumin 3.0 L Lipase < 4 L TSH 2.99 Urine Color YELLOW Urine Appearance TURBID Urine pH 6.5 Ur Specific [place] 1.020 Urine Protein 1+ H Urine Glucose (UA) NEG Urine Ketones NEG Urine Blood 3+ H Urine Nitrite NEG Ur Leukocyte Esterase 3+ H Urine RBC 15-29 H Urine WBC TNTC H Ur Squamous Epith Cells TRACE Calcium Oxalate Crystal 1+ Urine Bacteria 1+ C. difficile Tox B Gene COVID-19 (DANNY) COVID-19 Clin Com Imaging Radiologist's Impressions: Impressions Chest X-Ray 09/01/21 15:15 IMPRESSION: No significant acute parenchymal disease appreciated. Assessment and Plan (1) C. difficile colitis: Status: Acute (2) Weakness: Status: Acute (3) Acute UTI: Status: Acute An 81 years old lady with PMH of diabetes, CHF, HTN, PAF among others who presented to the hospital from SNF with increased weakness and diarrhea. C diff colitis Confirmed by stool testing Start vancomycin orally q.6 Get ID evaluation for long-term care UTI Reported Pseudomonas and Klebsiella, could not see the actual was reported DC Ceftin Hold on further antibiotic while in C diff, repeat urinalysis and culture for now Generalized weakness Secondary to infection Should improve with improvement of the infection Type 2 diabetes POC, diabetic diet Sliding scale insulin Atrial fibrillation continue Xarelto and metoprolol DVT PPX Xarelto Quality Stroke Does the patient have a stroke diagnosis?: No VTE Prior VTE?: No VTE Risk Level:: Medical - moderate - high VTE Device Contraindication: Treatment Not Indicated VTE Drug Contraindication: N/A - Med Ordered
[2021-09-01 17:07] LABS: CDIFF Internal ctrl Dots and bkg OK (V); CDiff Toxin Negative (Negative)
--- NOTE | 2021-09-01 17:12 | PHA.MEDREC ---
Pharmacy Consult ? Medication Reconciliation Pharmacy has completed the medication reconciliation. Pt is resident of [facility]. No longer on [facility] Thanks Elizabeth Viveros Pharm D
--- NOTE | 2021-09-01 17:51 | MHC.CM.PN ---
Pt from LTC at [facility]. Has advanced dementia. CM spoke with HCP/daughter Marbella Leonard ([phone]). IMM reviewed and signed per protocol 09/01/2021@1720. Copy left at bedside and to medical records. MOLST on file. Pt is a full code. Pt is verbal and non-ambulatory. Uses W/C. Recent hospitalization at [facility] 07/22- for UTI. D/C plan is to return to [facility]. Will need S transportation for pt safety. CM to follow for d/c needs.
[2021-09-01 19:14] LABS: Glucose, Whole Blood 140 mg/dL (60-115)
[2021-09-01] MEDS: vancomycin HCL Oral Solution 125 MG/5 ML SOLN.RECON PO (19:17)
[2021-09-01] MEDS: 0.9 % Sodium Chloride 1,000 ML 100 ML IVCONT (19:20)
[2021-09-01 19:32] VITALS: BP 141/100; PULSE 131
[2021-09-01] MEDS: Metoprolol Tartrate 5 MG/5 ML VIAL IVPUSH (19:32)
--- NOTE | 2021-09-01 20:11 | PC.NURSE ---
patient is refusing to take anything orally, nurse attempted to have patient drink some water, patient held mouth closed and saying no
[2021-09-01 20:48] VITALS: BP 151/94; PULSE 60; RESP 15; TEMP 36.3; O2SAT 97
--- NOTE | 2021-09-01 21:00 | PC.NURSE ---
Assumed care of pt Pt resting on stretcher Pt disoriented to time, place, and self. Pt will occasionally answer questions VSS No apparent distress Pt in position of comfort with feet floated Will continue to monitor
[2021-09-02] VITALS (10 sets, daily range): BP systolic 140–173; BP diastolic 76–95; PULSE 60–88; RESP 14–20; TEMP 36.2–37.1; O2SAT 96–99
[2021-09-02 00:02] LABS: Glucose, Whole Blood 143 mg/dL (60-115)
[2021-09-02] MEDS: Metoprolol Tartrate 50 MG TABLET PO ×3 (00:05→22:10)
--- NOTE | 2021-09-02 00:06 | PC.NURSE ---
Pt tolerating water Pt medicated per MAR Will continue to monitor
--- NOTE | 2021-09-02 01:23 | PC.NURSE ---
Unable to obtain vancomycin oral solution. Will await pharmacy in AM for next dose
[2021-09-02] MEDS: 0.9 % Sodium Chloride 1,000 ML 100 ML IVCONT (05:31)
[2021-09-02 08:13] LABS: Glucose, Whole Blood 130 mg/dL (60-115)
[2021-09-02] MEDS: cefEPime HCl 1 GM in 0.9 % Sodium Chloride 50 ML IV ×2 (08:29→22:09)
[2021-09-02] MEDS: vancomycin HCL Oral Solution 125 MG/5 ML SOLN.RECON PO ×3 (08:30→22:10)
[2021-09-02 08:35] LABS: Hematocrit 44.1 % (37.0-47.0); Hemoglobin 14.7 g/dl (12.0-16.0); Mean Corpuscular HGB Conc 33.3 g/dl (31.0-35.0); Mean Corpuscular Hemoglobin 29.8 pg (27.0-33.0); Mean Corpuscular Volume 89.3 fL (80.0-98.0); Mean Platelet Volume 11.1 fL (9.4-12.3); Platelet Count 221 X10*3/uL (160-400); Red Blood Count 4.94 X10*6/uL (4.20-5.50); Red Cell Distribution Width 13.6 % (11.0-16.0); White Blood Count 7.6 X10*3/uL (4.8-10.8)
[2021-09-02 08:50] LABS: Anion Gap 12 (12-20); Blood Urea Nitrogen 8 mg/dL (9-16); Carbon Dioxide 26 mmol/L (22-29); Chloride 109 mmol/L (96-108); Creatinine Clr Calc Pharmacy 51.1; Estimated Glomerular Filt Rate > 60; Glucose Random 121 mg/dL (60-115); Sodium 144 mmol/L (135-145)
[2021-09-02 08:56] LABS: Calcium 8.3 mg/dL (8.4-10.2)
[2021-09-02 11:30] LABS: Glucose, Whole Blood 174 mg/dL (60-115)
--- NOTE | 2021-09-02 11:50 | P.PNIM_ITS ---
Subjective Subjective Date of Service: 09/02/21 Interval History: the patient was seen and evaluated this morning Laying in bed, sleepy and barely responsive Difficult to give her the oral vancomycin by the nurses Denies any fever, chills or shortness of breath No reported other overnight events. Review of Systems Almost nonverbal but reported feeling comfortable Physical Exam Vital Signs: Vital Signs: Last Vital Signs Temp 98.8 F 09/02/21 08:34 Pulse 65 09/02/21 08:34 Resp 14 09/02/21 08:34 BP 173/95 H 09/02/21 08:34 Pulse Ox 97 09/02/21 08:34 BMI result Body Mass Index 22.3 Const: Other: Constitutional : Alert, disoriented not in distress Neck : Normal inspection, Supple Cardiovascular : RRR, S1 S2, no lower extremity edema Respiratory : Fair bilateral air entry, no crackles, wheezes or rhonchi Gastrointestinal: soft, lax, Normal bowel sounds, mild tenderness over the left lower quadrant Skin : Warm, Dry Neurological : Alert, disoriented, generalized weakness blood No focal deficit appreciated Objective Data Active Medications Acetaminophen (Acetaminophen 325 Mg Tablet) 650 mg PO Q6H PRN PRN Reason: Pain, Mild (Pain Scale 1-3) Sodium Chloride (Ns) 1,000 mls @ 100 mls/hr IVCONT .Q10H [facility] Last Admin: 09/02/21 05:31 Dose: 100 mls/hr Documented by: EDD Sodium Chloride (Ns) 1,000 mls @ 100 mls/hr IVCONT .Q10H [facility] Last Admin: 09/02/21 05:32 Dose: Not Given Documented by: EDD Non-Admin Reason: Duplicate Order Cefepime HCl 1 gm/ Sodium (Chloride) 50 mls @ 100 mls/hr IV Q12H [facility] Last Infusion: 09/02/21 09:42 Dose: 0 mls/hr Documented by: PEPITO Insulin Human Lispro (Insulin Lispro 100 Unit/Ml 3 Ml Vial) 0 unit SUBCUT QIDACHS [facility]; Protocol Last Admin: 09/02/21 08:19 Dose: Not Given Documented by: PEPITO Non-Admin Reason: No Insulin Coverage Levothyroxine Sodium (Levothyroxine Sodium 112 Mcg Tablet) 112 mcg PO DAILY@0600 [facility] Last Admin: 09/02/21 06:51 Dose: Not Given Documented by: EDD Non-Admin Reason: Patient Refused Metoprolol Tartrate (Metoprolol Tartrate 50 Mg Tablet) 50 mg PO BID [facility]; Protocol Last Admin: 09/02/21 08:30 Dose: 50 mg Documented by: PEPITO Non-Formulary Medication (Isosorbide Mononitrate) 1 tab PO DAILY@0800 [facility] Ondansetron HCl (Ondansetron Hcl 4 Mg/2 Ml Vial) 4 mg IVPUSH Q8H PRN PRN Reason: Nausea and Vomiting Pharmacy Consult (Consult Rx Perform Med Rec) 1 each MISCELLANE ONCE PRN PRN Reason: Consult order Potassium Chloride (Potassium Chloride Er 10 Meq Capsule.Er) 40 meq PO DAILY@1200 [facility] Rivaroxaban (Rivaroxaban 15 Mg Tablet) 15 mg PO DAILY@2000 [facility] Last Admin: 09/01/21 20:13 Dose: Not Given Documented by: TONE Non-Admin Reason: See Note Sodium Chloride (0.9 % Sodium Chloride Flush 3 Ml Syringe) 3 ml IVFLUSH QSHIFT [facility] Last Admin: 09/02/21 07:16 Dose: Not Given Documented by: PEPITO Non-Admin Reason: IV Running Vancomycin HCl (Vancomycin Hcl Oral Solution 125 Mg/5 Ml Soln.Recon) 125 mg PO Q6H [facility] Last Admin: 09/02/21 08:30 Dose: 125 mg Documented by: PEPITO Labs CBC & Chem 7: 09/02/21 07:10 09/02/21 07:10 Labs: Laboratory Results - last 24 hr 09/01/21 09/01/21 09/01/21 14:45 14:51 14:52 MCV 91.4 MCH 30.1 MCHC 32.9 RDW 13.6 Plt Count 224 MPV 10.3 Immature Gran % (Auto) 0.4 Neut % (Auto) 65.7 Lymph % (Auto) 23.2 [place] % (Auto) 8.3 Eos % (Auto) 1.9 Baso % (Auto) 0.5 Lymph # (Auto) 2.0 [place] # (Auto) 0.7 Eos # (Auto) 0.2 Baso # (Auto) 0.0 Abs Immat Gran (auto) 0.03 Absolute Neuts (auto) 5.5 Absolute Nucleated RBC 0.000 Nucleated RBC % (auto) 0.0 VBG pH VBG pCO2 VBG pO2 VBG HCO3 VBG O2 Saturation VBG Base Excess Anion Gap Cancelled Estim Creat Clear Calc Cancelled Estimated GFR Cancelled POC Glucose Random Glucose Cancelled Lactic Acid Calcium Cancelled Magnesium Cancelled Total Bilirubin Cancelled Direct Bilirubin Cancelled AST Cancelled ALT Cancelled Alkaline Phosphatase Cancelled Troponin I High Sens Total Protein Cancelled Albumin Cancelled Lipase Cancelled TSH Urine Color Urine Appearance Urine pH Ur Specific Mcdavid Urine Protein Urine Glucose (UA) Urine Ketones Urine Blood Urine Nitrite Ur Leukocyte Esterase Urine RBC Urine WBC Ur Squamous Epith Cells Calcium Oxalate Crystal Urine Bacteria C. difficile Tox B Gene POSITIVE A* C. difficile Toxin A&B Negative C. difficile Interpret SEE NOTE COVID-19 (DANNY) [employer] 09/01/21 09/01/21 09/01/21 15:07 15:07 15:07 MCV MCH MCHC RDW Plt Count MPV Immature Gran % (Auto) Neut % (Auto) Lymph % (Auto) [place] % (Auto) Eos % (Auto) Baso % (Auto) Lymph # (Auto) [place] # (Auto) Eos # (Auto) Baso # (Auto) Abs Immat Gran (auto) Absolute Neuts (auto) Absolute Nucleated RBC Nucleated RBC % (auto) VBG pH VBG pCO2 VBG pO2 VBG HCO3 VBG O2 Saturation VBG Base Excess Anion Gap Estim Creat Clear Calc Estimated GFR POC Glucose Random Glucose Lactic Acid 1.7 Calcium Magnesium Total Bilirubin Direct Bilirubin AST ALT Alkaline Phosphatase Troponin I High Sens 31.5 H Total Protein Albumin Lipase TSH Urine Color Urine Appearance Urine pH Ur Specific Mcdavid Urine Protein Urine Glucose (UA) Urine Ketones Urine Blood Urine Nitrite Ur Leukocyte Esterase Urine RBC Urine WBC Ur Squamous Epith Cells Calcium Oxalate Crystal Urine Bacteria C. difficile Tox B Gene C. difficile Toxin A&B C. difficile Interpret COVID-19 (DANNY) Negative [facility] See Note 09/01/21 09/01/21 09/01/21 15:11 15:25 15:28 MCV MCH MCHC RDW Plt Count MPV Immature Gran % (Auto) Neut % (Auto) Lymph % (Auto) [place] % (Auto) Eos % (Auto) Baso % (Auto) Lymph # (Auto) [place] # (Auto) Eos # (Auto) Baso # (Auto) Abs Immat Gran (auto) Absolute Neuts (auto) Absolute Nucleated RBC Nucleated RBC % (auto) VBG pH 7.44 H VBG pCO2 48 VBG pO2 36 VBG HCO3 33 H VBG O2 Saturation 58.0 VBG Base Excess 8.0 Anion Gap 14 Estim Creat Clear Calc 42.8 Estimated GFR > 60 POC Glucose Random Glucose 169 H Lactic Acid Calcium 9.1 D Magnesium 1.7 Total Bilirubin 1.0 Direct Bilirubin 0.3 AST 15 ALT 8 Alkaline Phosphatase 71 Troponin I High Sens Total Protein 6.2 L Albumin 3.0 L Lipase < 4 L TSH 2.99 Urine Color YELLOW Urine Appearance TURBID Urine pH 6.5 Ur Specific Mcdavid 1.020 Urine Protein 1+ H Urine Glucose (UA) NEG Urine Ketones NEG Urine Blood 3+ H Urine Nitrite NEG Ur Leukocyte Esterase 3+ H Urine RBC 15-29 H Urine WBC TNTC H Ur Squamous Epith Cells TRACE Calcium Oxalate Crystal 1+ Urine Bacteria 1+ C. difficile Tox B Gene C. difficile Toxin A&B C. difficile Interpret COVID-19 (DANNY) COVID-19 [facility] 09/01/21 09/01/21 09/02/21 19:09 23:58 07:10 MCV 89.3 MCH 29.8 MCHC 33.3 RDW 13.6 Plt Count 221 MPV 11.1 Immature Gran % (Auto) Neut % (Auto) Lymph % (Auto) [place] % (Auto) Eos % (Auto) Baso % (Auto) Lymph # (Auto) [place] # (Auto) Eos # (Auto) Baso # (Auto) Abs Immat Gran (auto) Absolute Neuts (auto) Absolute Nucleated RBC 0.000 Nucleated RBC % (auto) 0.0 VBG pH VBG pCO2 VBG pO2 VBG HCO3 VBG O2 Saturation VBG Base Excess Anion Gap Estim Creat Clear Calc Estimated GFR POC Glucose 140 H 143 H Random Glucose Lactic Acid Calcium Magnesium Total Bilirubin Direct Bilirubin AST ALT Alkaline Phosphatase Troponin I High Sens Total Protein Albumin Lipase TSH Urine Color Urine Appearance Urine pH Ur Specific Mcdavid Urine Protein Urine Glucose (UA) Urine Ketones Urine Blood Urine Nitrite Ur Leukocyte Esterase Urine RBC Urine WBC Ur Squamous Epith Cells Calcium Oxalate Crystal Urine Bacteria C. difficile Tox B Gene C. difficile Toxin A&B C. difficile Interpret COVID-19 (DANNY) COVID-19 [facility] 12/09/02/21 09/02/21 07:10 08:09 11:26 MCV MCH MCHC RDW Plt Count MPV Immature Gran % (Auto) Neut % (Auto) Lymph % (Auto) [place] % (Auto) Eos % (Auto) Baso % (Auto) Lymph # (Auto) [place] # (Auto) Eos # (Auto) Baso # (Auto) Abs Immat Gran (auto) Absolute Neuts (auto) Absolute Nucleated RBC Nucleated RBC % (auto) VBG pH VBG pCO2 VBG pO2 VBG HCO3 VBG O2 Saturation VBG Base Excess Anion Gap 12 Estim Creat Clear Calc 51.1 Estimated GFR > 60 POC Glucose 130 H 174 H Random Glucose 121 H Lactic Acid Calcium 8.3 L D Magnesium Total Bilirubin Direct Bilirubin AST ALT Alkaline Phosphatase Troponin I High Sens Total Protein Albumin Lipase TSH Urine Color Urine Appearance Urine pH Ur Specific Mcdavid Urine Protein Urine Glucose (UA) Urine Ketones Urine Blood Urine Nitrite Ur Leukocyte Esterase Urine RBC Urine WBC Ur Squamous Epith Cells Calcium Oxalate Crystal Urine Bacteria C. difficile Tox B Gene C. difficile Toxin A&B C. difficile Interpret COVID-19 (DANNY) COVID-19 Clin Com Microbiology Microbiology Results: Microbiology 09/01/21 16:05 Urine Culture - Preliminary Urine Catheterized - Wray Catheter No growth to date. Assessment and Plan (1) Weakness: Status: Acute (2) Acute UTI: Status: Acute (3) Clostridioides difficile infection: Status: Acute Assessment and Plan: An 81 years old lady with PMH of diabetes, CHF, HTN, PAF among others who presented to the hospital from SNF with increased weakness and diarrhea. C diff infection Confirmed by stool testing Toxin test is negative, with mean only care ear status Continue vancomycin orally q.6 given she is on antibiotics now Pending ID evaluation for long-term care UTI Reported Pseudomonas and Klebsiella, could not see the actual was reported DC Ceftin Started on cefepime for recent pseudomonal infection repeat urinalysis and culture pending Generalized weakness Secondary to infection Should improve with improvement of the infection Recurrent reorientation Type 2 diabetes POC, diabetic diet Sliding scale insulin Atrial fibrillation continue Xarelto and metoprolol DVT PPX Xarelto Quality Stroke Does the patient have a stroke diagnosis?: No VTE Prior VTE?: No VTE Risk Level:: Medical - moderate - high VTE Device Contraindication: Treatment Not Indicated VTE Drug Contraindication: N/A - Med Ordered
[2021-09-02] MEDS: Insulin Lispro 100 UNIT/ML 3 ML VIAL SUBCUT ×2 (12:02→22:11)
[2021-09-02] MEDS: Isosorbide Mononitrate 30 MG TAB.ER.24H 15 MG PO (13:54)
[2021-09-02] MEDS: Potassium Chloride Packet 20 MEQ PACKET 40 MEQ PO (14:10)
[2021-09-02 16:47] LABS: Glucose, Whole Blood 148 mg/dL (60-115)
[2021-09-02 21:24] LABS: Glucose, Whole Blood 212 mg/dL (60-115)
[2021-09-02] MEDS: Rivaroxaban 15 MG TABLET PO (22:10)
[2021-09-02] MEDS: 0.9 % Sodium Chloride Flush 3 ML SYRINGE IVFLUSH (23:42)
[2021-09-03] VITALS (8 sets, daily range): BP systolic 118–169; BP diastolic 45–98; PULSE 59–103; RESP 18–20; TEMP 36–36.9; O2SAT 94–100
[2021-09-03] MEDS: vancomycin HCL Oral Solution 125 MG/5 ML SOLN.RECON PO ×3 (02:02→19:18)
[2021-09-03] MEDS: Levothyroxine Sodium 112 MCG TABLET PO (05:42)
[2021-09-03 06:15] LABS: Hemoglobin 15.6 g/dl (12.0-16.0); Mean Corpuscular HGB Conc 33.2 g/dl (31.0-35.0); Mean Corpuscular Hemoglobin 30.1 pg (27.0-33.0); Mean Corpuscular Volume 90.7 fL (80.0-98.0); Mean Platelet Volume 10.8 fL (9.4-12.3); Platelet Count 215 X10*3/uL (160-400); Red Blood Count 5.18 X10*6/uL (4.20-5.50); Red Cell Distribution Width 13.6 % (11.0-16.0); White Blood Count 8.9 X10*3/uL (4.8-10.8)
[2021-09-03 06:51] LABS: Anion Gap 10 (12-20); Blood Urea Nitrogen 8 mg/dL (9-16); Calcium 8.9 mg/dL (8.4-10.2); Carbon Dioxide 28 mmol/L (22-29); Chloride 107 mmol/L (96-108); Estimated Glomerular Filt Rate > 60; Glucose Random 113 mg/dL (60-115); Potassium 3.3 mmol/L (3.3-5.1); Sodium 142 mmol/L (135-145)
[2021-09-03 07:44] LABS: Glucose, Whole Blood 126 mg/dL (60-115)
[2021-09-03] MEDS: Potassium Chloride Packet 20 MEQ PACKET 40 MEQ PO (08:16)
[2021-09-03] MEDS: Metoprolol Tartrate 50 MG TABLET PO ×2 (08:16→19:18)
[2021-09-03] MEDS: Isosorbide Mononitrate 30 MG TAB.ER.24H 15 MG PO (08:16)
[2021-09-03] MEDS: 0.9 % Sodium Chloride Flush 3 ML SYRINGE IVFLUSH ×3 (08:19→23:11)
[2021-09-03] MEDS: cefEPime HCl 1 GM in 0.9 % Sodium Chloride 50 ML IV ×2 (10:28→19:17)
--- NOTE | 2021-09-03 11:02 | P.PNIM_ITS ---
Subjective Subjective Date of Service: 09/03/21 Interval History: the patient was seen and evaluated this morning Laying in bed, more alert and interactive One episode of diarrhea overnight Denies any fever, chills or shortness of breath No reported other overnight events. Review of Systems Almost nonverbal but reported feeling comfortable Physical Exam Vital Signs: Vital Signs: Last Vital Signs Temp 96.9 F 09/03/21 07:10 Pulse 103 H 09/03/21 08:16 Resp 18 09/03/21 07:10 BP 169/83 H 09/03/21 08:16 Pulse Ox 97 09/03/21 07:10 BMI result Body Mass Index 22.3 Const: Other: Constitutional : Alert, disoriented, not in distress Neck : Normal inspection, Supple Cardiovascular : RRR, S1 S2, no lower extremity edema Respiratory : Fair bilateral air entry, no crackles, wheezes or rhonchi Gastrointestinal: soft, lax, Normal bowel sounds, mild tenderness over the left lower quadrant Skin : Warm, Dry Neurological : Alert, disoriented, generalized weakness blood No focal deficit appreciated Objective Data Active Medications Acetaminophen (Acetaminophen 325 Mg Tablet) 650 mg PO Q6H PRN PRN Reason: Pain, Mild (Pain Scale 1-3) Cefepime HCl 1 gm/ Sodium (Chloride) 50 mls @ 100 mls/hr IV Q12H [facility] Last Admin: 09/03/21 10:28 Dose: 100 mls/hr Documented by: DK Insulin Human Lispro (Insulin Lispro 100 Unit/Ml 3 Ml Vial) 0 unit SUBCUT QIDACHS [facility]; Protocol Last Admin: 09/03/21 08:07 Dose: Not Given Documented by: DK Non-Admin Reason: No Insulin Coverage Isosorbide Mononitrate (Isosorbide Mononitrate 30 Mg Tab.Er.24h) 15 mg PO DAILY [facility]; Protocol Last Admin: 09/03/21 08:16 Dose: 15 mg Documented by: DK Levothyroxine Sodium (Levothyroxine Sodium 112 Mcg Tablet) 112 mcg PO DAILY@0600 [facility] Last Admin: 09/03/21 05:42 Dose: 112 mcg Documented by: MARIELA Metoprolol Tartrate (Metoprolol Tartrate 50 Mg Tablet) 50 mg PO BID NADER; Rey col Last Admin: 09/03/21 08:16 Dose: 50 mg Documented by: DK Ondansetron HCl (Ondansetron Hcl 4 Mg/2 Ml Vial) 4 mg IVPUSH Q8H PRN PRN Reason: Nausea and Vomiting Pharmacy Consult (Consult Rx Perform Med Rec) 1 each MISCELLANE ONCE PRN PRN Reason: Consult order Potassium Chloride (Potassium Chloride Packet 20 Meq Packet) 40 meq PO DAILY [facility] Last Admin: 09/03/21 08:16 Dose: 40 meq Documented by: DK Rivaroxaban (Rivaroxaban 15 Mg Tablet) 15 mg PO DAILY@1999 [facility] Last Admin: 09/02/21 22:10 Dose: 15 mg Documented by: CASTILJuan Francisco Sodium Chloride (0.9 % Sodium Chloride Flush 3 Ml Syringe) 3 ml IVFLUSH QSHIFT [facility] Last Admin: 09/03/21 08:19 Dose: 3 ml Documented by: DK Vancomycin HCl (Vancomycin Hcl Oral Solution 125 Mg/5 Ml Soln.Recon) 125 mg PO Q6H [facility] Last Admin: 09/03/21 08:20 Dose: 125 mg Documented by: DK Labs CBC & Chem 7: 09/03/21 05:57 09/03/21 05:57 Labs: Laboratory Results - last 24 hr 09/02/21 09/02/21 09/02/21 11:26 16:27 21:06 MCV MCH MCHC RDW Plt Count MPV Absolute Nucleated RBC Nucleated RBC % (auto) Anion Gap Estim Creat Clear Calc Estimated GFR POC Glucose 174 H 148 H 212 H Random Glucose Calcium 09/03/21 09/03/21 09/03/21 05:57 05:57 07:14 MCV 90.7 MCH 30.1 MCHC 33.2 RDW 13.6 Plt Count 215 MPV 10.8 Absolute Nucleated RBC 0.000 Nucleated RBC % (auto) 0.0 Anion Gap 10 L Estim Creat Clear Calc 46.0 Estimated GFR > 60 POC Glucose 126 H Random Glucose 113 Calcium 8.9 D Microbiology Microbiology Results: Microbiology 09/01/21 16:05 Urine Culture - Final Urine Catheterized - Wray Catheter 09/01/21 15:07 Blood Culture - Preliminary Blood - Venous No growth after 24 hours. 09/01/21 14:50 Blood Culture - Preliminary Blood - Venous No growth after 24 hours. Assessment and Plan (1) Clostridioides difficile infection: Status: Acute (2) Acute UTI: Status: Acute (3) Weakness: Status: Acute (4) Metabolic encephalopathy: Status: Acute Assessment and Plan: An 81 years old lady with PMH of diabetes, CHF, HTN, PAF among others who presented to the hospital from SNF with increased weakness and diarrhea. C diff infection Confirmed by stool testing Toxin test is negative, with mean only care ear status Continue vancomycin orally q.6 given she is on antibiotics now Pending ID evaluation for long-term care UTI Reported Pseudomonas and Klebsiella, could not see the actual report Continue on cefepime for recent pseudomonal infection Urine culture growing 50,000 mixed bacteria Generalized weakness , metabolic encephalopathy Secondary to infection Improving Recurrent reorientation Type 2 diabetes POC, diabetic diet Sliding scale insulin Atrial fibrillation continue Xarelto and metoprolol DVT PPX Xarelto Quality Stroke Does the patient have a stroke diagnosis?: No VTE Prior VTE?: No VTE Risk Level:: Medical - moderate - high VTE Device Contraindication: Treatment Not Indicated VTE Drug Contraindication: N/A - Med Ordered
[2021-09-03 11:36] LABS: Glucose, Whole Blood 177 mg/dL (60-115)
[2021-09-03] MEDS: Insulin Lispro 100 UNIT/ML 3 ML VIAL SUBCUT ×3 (11:51→20:58)
--- NOTE | 2021-09-03 15:42 | MHC.CM.PN ---
PER REVIEW OF NOTES, PENDING ID INPUT FOR DETERMINATION OF LT ABX. NO PLAN FOR DC TODAY
[2021-09-03 16:33] LABS: Glucose, Whole Blood 189 mg/dL (60-115)
[2021-09-03] MEDS: Rivaroxaban 15 MG TABLET PO (19:17)
[2021-09-03 20:34] LABS: Glucose, Whole Blood 194 mg/dL (60-115)
[2021-09-04] VITALS (9 sets, daily range): BP systolic 120–174; BP diastolic 67–94; PULSE 57–73; RESP 16–18; TEMP 36–36.9; O2SAT 97–99; BMI 22.3
[2021-09-04] MEDS: vancomycin HCL Oral Solution 125 MG/5 ML SOLN.RECON PO ×4 (00:52→20:25)
[2021-09-04] MEDS: Levothyroxine Sodium 112 MCG TABLET PO (05:49)
[2021-09-04 08:06] LABS: Glucose, Whole Blood 138 mg/dL (60-115)
[2021-09-04] MEDS: Potassium Chloride Packet 20 MEQ PACKET 40 MEQ PO (09:01)
[2021-09-04] MEDS: Metoprolol Tartrate 50 MG TABLET PO ×2 (09:01→20:25)
[2021-09-04] MEDS: 0.9 % Sodium Chloride Flush 3 ML SYRINGE IVFLUSH (09:02)
[2021-09-04] MEDS: Isosorbide Mononitrate 30 MG TAB.ER.24H PO (09:02)
[2021-09-04] MEDS: cefEPime HCl 1 GM in 0.9 % Sodium Chloride 50 ML IV (09:06)
--- NOTE | 2021-09-04 10:04 | P.DS_ITS ---
DS: Providers Provider Date of Service: 09/04/21 Date of admission: 09/01/21 16:13 Primary care physician: Narinder Lawson MD Consults: 09/01/21 16:13 Consult to Infectious Diseases Routine Consulting Provider: Angela Moore Reason for consultation: Eval for CDiff infx, reported Pseudomonas UTI 08/29 DS: Diagnosis Discharge Diagnosis (1) Clostridioides difficile infection: Status: Acute (2) Acute UTI: Status: Acute (3) Weakness: Status: Acute (4) Metabolic encephalopathy: Status: Acute DS: Summary Hospital Course Hospital Course: Admission note HPI An 81 years old lady with PMH of diabetes, CHF, HTN, PAF among others who presented to the hospital from SNF with increased weakness and diarrhea.? The patient was diagnosed on the 29 of August with UTI secondary to Klebsiella and Pseudomonas.? Treated with Ceftin for the last 3 days.? She started to have diarrhea episodes associated with weakness.? The patient is advanced sleep demented and content add much to the history so it was taken in from medical staff and EMS report. Admitted for further evaluation and treatment. Hospital course The patient was admitted to the hospital for altered mentation and diarrhea. Stool testing showed C diff infection with negative toxin. Treated with oral vancomycin with good response as diarrhea resolved. Mentation improved back to baseline. She had a recent UTI with Klebsiella and Pseudomonas growing. Started on cefepime pending repeated urine culture which came back negative for any growth. Antibiotic will be discontinued at time of discharge. To continue vancomycin for 10 more days. Time Spent with Patient Time attestation: Total time spent providing and/or coordinating discharge services: Discharge coordination time: Greater than 30 minutes Quality: Stroke Does the patient have a stroke diagnosis?: No Physical Exam Vital Signs: Vital Signs: Last Vital Signs Temp 97.0 F 09/04/21 07:02 Pulse 60 09/04/21 09:02 Resp 18 09/04/21 07:02 BP 174/94 H 09/04/21 09:02 Pulse Ox 99 09/04/21 07:02 BMI result Body Mass Index 22.3 Const: Other: Constitutional : Alert, interactive, open her eyes while talking, not in distress Neck : Normal inspection, Supple Cardiovascular : RRR, S1 S2, no lower extremity edema Respiratory : Fair bilateral air entry, no crackles, wheezes or rhonchi Gastrointestinal: soft, lax, Normal bowel sounds, mild tenderness over the left lower quadrant Skin : Warm, Dry Neurological : Alert, oriented to self but not time or place generalized weakness blood No focal deficit appreciated DS: Data Data Completed and Pending Labs on day of discharge: Laboratory Results - last 24 hr 09/03/21 09/03/21 09/03/21 11:19 16:23 20:30 POC Glucose 177 H 189 H 194 H 09/04/21 07:07 POC Glucose 138 H Preliminary micro results at discharge 09/01/21 15:07 Blood Culture - Preliminary Blood - Venous No growth after 48 hours. 09/01/21 14:50 Blood Culture - Preliminary Blood - Venous No growth after 48 hours. Discharge Plan Discharge Patient Disposition: [facility] Discharge Diagnosis: Clostridium Diff infection Referrals: Narinder Lawson MD [Primary Care Provider] - 1 Week Discharge Medications: New Firvanq 25 mg/mL Recon Soln 125 mg PO Q6H 10 Days Qty: 200 RF: 0 Continued potassium chloride 10 mEq capsule, extended release 4 cap PO DAILY@1200 RF: 0 isosorbide mononitrate 20 mg tablet 1 tab PO DAILY@0800 RF: 0 metoprolol tartrate 50 mg tablet 1 tab PO BID RF: 0 levothyroxine 112 mcg tablet 1 tab PO DAILY@0600 RF: 0 Xarelto 20 mg tablet 1 tab PO DAILY@2000 RF: 0 Discontinued cefuroxime axetil 500 mg tablet 500 mg PO Q12H 3 Days Qty: 6 RF: 0 Discharge Orders: Discharge Order (Routine); Ordered 09/04/21 Ordered By: Yelitza Henrandez Diet: advance to usual diet Activity on Discharge: As tolerated Stand Alone Forms: Patient Portal Discharge page Care Plan Goals: Read below Health Concerns: Read below Plan of Treatment: Read below Assessment: You were admitted to the hospital for evaluation of altered mentation. Found to have C diff infection treated with oral vancomycin with good response over the course of hospital stay. You received antibiotic for recent UTI with Pseudomonas and Klebsiella. Repeated urine culture is negative.
[2021-09-04 11:46] LABS: Glucose, Whole Blood 198 mg/dL (60-115)
[2021-09-04 12:02] LABS: COVID-19 Test Negative (Negative); IDNOW Serial# 9DD0AD1C
[2021-09-04] MEDS: Insulin Lispro 100 UNIT/ML 3 ML VIAL SUBCUT ×2 (12:02→20:25)
--- NOTE | 2021-09-04 12:09 | MHC.CM.PN ---
Addendum entered by Amy Parra RN 09/04/21 13:38: CM RECEIVED CALL FROM SNF REPORTING THEY COULD NOT TAKE HER UNTIL TOMORROW 09/05 AT 11AM AFTER A D/C D/T CDIF AND NEEDING TO PLACE HER IN A PRIVATE ROOM W/OUT A SHARED BR, UNIT/HOSPITALIST/[facility] AWARE AND PT WILL D/C TOMORROW AT 11AM. Addendum entered by Amy Parra RN 09/04/21 12:10: PT'S DTR [facility] CONTACTED AT [phone] TO REVIEW IMM AND IS AGREEABLE TO PLAN. Original Note: IMM 09/04/21, PT RETURNING TO [facility] AT 3PM [facility]IA [facility].
--- NOTE | 2021-09-04 13:28 | P.PNIM_ITS ---
Subjective Subjective Date of Service: 09/04/21 Interval History: the patient was seen and evaluated this morning Laying in bed, more alert and interactive No more diarrhea Denies any fever, chills or shortness of breath No reported other overnight events. Review of Systems No fever, chills or weakness No chest pain, palpitation No shortness of breath or coughing No abdominal pain, nausea or vomiting No urinary symptoms No any rash or wounds Physical Exam Vital Signs: Vital Signs: Last Vital Signs Temp 98.4 F 09/04/21 12:00 Pulse 60 09/04/21 09:02 Resp 18 09/04/21 07:02 BP 130/80 09/04/21 12:00 Pulse Ox 99 09/04/21 07:02 BMI result Body Mass Index 22.3 Const: Other: Constitutional : A lert, interactive, open her eyes whi le talking, not in distress Neck : N ormal inspection, Supple Cardiovascu lar : RRR, S1 S2, no lower extremity edema Respiratory :? Fair bilateral air entry,? no cr ackles, wheezes or rhonchi Gastroint estinal:? soft, la x, Normal bowel so unds, mild tendern ess over the left lower quadrant Ski n : Warm, Dry Neur ological : Alert, oriented to self b ut not time or lori ce generalized wea kness blood No foc al deficit appreci ated Objective Data Active Medications Acetaminophen (Acetaminophen 325 Mg Tablet) 650 mg PO Q6H PRN PRN Reason: Pain, Mild (Pain Scale 1-3) Cefepime HCl 1 gm/ Sodium (Chloride) 50 mls @ 100 mls/hr IV Q12H [facility] Last Infusion: 09/04/21 09:43 Dose: 0 mls/hr Documented by: SARAH Insulin Human Lispro (Insulin Lispro 100 Unit/Ml 3 Ml Vial) 0 unit SUBCUT QIDACHS [facility]; Protocol Last Admin: 09/04/21 12:02 Dose: 2 unit Documented by: SARAH Isosorbide Mononitrate (Isosorbide Mononitrate 30 Mg Tab.Er.24h) 30 mg PO DAILY [facility]; Protocol Last Admin: 09/04/21 09:02 Dose: 30 mg Documented by: SARAH Levothyroxine Sodium (Levothyroxine Sodium 112 Mcg Tablet) 112 mcg PO DAILY@0600 [facility] Last Admin: 09/04/21 05:49 Dose: 112 mcg Documented by: JAN Metoprolol Tartrate (Metoprolol Tartrate 50 Mg Tablet) 50 mg PO BID [facility]; Protocol Last Admin: 09/04/21 09:01 Dose: 50 mg Documented by: SARAH Ondansetron HCl (Ondansetron Hcl 4 Mg/2 Ml Vial) 4 mg IVPUSH Q8H PRN PRN Reason: Nausea and Vomiting Pharmacy Consult (Consult Rx Perform Med Rec) 1 each MISCELLANE ONCE PRN PRN Reason: Consult order Potassium Chloride (Potassium Chloride Packet 20 Meq Packet) 40 meq PO DAILY [facility] Last Admin: 09/04/21 09:01 Dose: 40 meq Documented by: SARAH Rivaroxaban (Rivaroxaban 15 Mg Tablet) 15 mg PO DAILY@2000 [facility] Last Admin: 09/03/21 19:17 Dose: 15 mg Documented by: JAN Sodium Chloride (0.9 % Sodium Chloride Flush 3 Ml Syringe) 3 ml IVFLUSH QSHIFT [facility] Last Admin: 09/04/21 09:02 Dose: 3 ml Documented by: SARAH Vancomycin HCl (Vancomycin Hcl Oral Solution 125 Mg/5 Ml Soln.Recon) 125 mg PO Q6H [facility] Last Admin: 09/04/21 09:02 Dose: 125 mg Documented by: SARAH Labs CBC & Chem 7: 09/03/21 05:57 09/03/21 05:57 Labs: Laboratory Results - last 24 hr 09/03/21 09/03/21 09/04/21 16:23 20:30 07:07 POC Glucose 189 H 194 H 138 H COVID-19 ([facility]) COVID-19 Clin Com 09/04/21 09/04/21 11:35 11:37 POC Glucose 198 H COVID-19 ([facility]) Negative COVID-19 Clin Com See Note Microbiology Microbiology Results: Microbiology 09/01/21 15:07 Blood Culture - Preliminary Blood - Venous No growth after 48 hours. 09/01/21 14:50 Blood Culture - Preliminary Blood - Venous No growth after 48 hours. 09/01/21 16:05 Urine Culture - Final Urine Catheterized - Wray Catheter Assessment and Plan (1) Clostridioides difficile infection: Status: Acute (2) Weakness: Status: Acute (3) Acute UTI: Status: Acute (4) Metabolic encephalopathy: Status: Acute Assessment and Plan: An 81 years old lady with PMH of diabetes, CHF, HTN, PAF among others who presented to the hospital from SNF with increased weakness and diarrhea. C diff infection Confirmed by stool testing Toxin test is negative, with mean only care ear status Continue vancomycin orally q.6 given she is on antibiotics now Pending ID evaluation for long-term care UTI Reported Pseudomonas and Klebsiella, could not see the actual report Urine culture growing 50,000 mixed bacteria DC cefepime for recent pseudomonal infection Generalized weakness , metabolic encephalopathy Secondary to infection Improving Recurrent reorientation Type 2 diabetes POC, diabetic diet Sliding scale insulin Atrial fibrillation continue Xarelto and metoprolol DVT PPX Xarelto Quality Stroke Does the patient have a stroke diagnosis?: No VTE Prior VTE?: No VTE Risk Level:: Medical - moderate - high VTE Device Contraindication: Treatment Not Indicated VTE Drug Contraindication: N/A - Med Ordered
--- NOTE | 2021-09-04 15:09 | MHC.CLN ---
NUTRITION DIET CONSULT FOR PROBABLE POOR PO INTAKE. VISITED PATIENT AT LUNCH, DID NOT EAT. VARIABLE INTAKE SINCE ADMISSION. ADDING GLUCERNA BID TO PROVIDE 474 KCAL, 20 G PROTEIN.
[2021-09-04 16:35] LABS: Glucose, Whole Blood 143 mg/dL (60-115)
--- NOTE | 2021-09-04 19:34 | PC.NURSE ---
IV infiltreated. No IV meds ordered and plan for dc today. Ok to leave IV out per Dr. Hernandez.
[2021-09-04] MEDS: Rivaroxaban 15 MG TABLET PO (20:25)
[2021-09-04 20:53] LABS: Glucose, Whole Blood 273 mg/dL (60-115)
[2021-09-05] VITALS (8 sets, daily range): BP systolic 105–145; BP diastolic 67–86; PULSE 67–85; RESP 15–16; TEMP 36.2–37.1; O2SAT 95–99
[2021-09-05] MEDS: vancomycin HCL Oral Solution 125 MG/5 ML SOLN.RECON PO ×4 (01:04→21:56)
[2021-09-05] MEDS: Levothyroxine Sodium 112 MCG TABLET PO (06:13)
[2021-09-05 07:38] LABS: Glucose, Whole Blood 138 mg/dL (60-115)
[2021-09-05] MEDS: 0.9 % Sodium Chloride Flush 3 ML SYRINGE IVFLUSH ×4 (08:18→22:41)
[2021-09-05] MEDS: Potassium Chloride Packet 20 MEQ PACKET 40 MEQ PO (08:19)
[2021-09-05] MEDS: Metoprolol Tartrate 50 MG TABLET PO ×2 (08:19→21:56)
[2021-09-05] MEDS: Isosorbide Mononitrate 30 MG TAB.ER.24H PO (08:20)
--- NOTE | 2021-09-05 10:37 | HO.PM.IMPN ---
Subjective Subjective Date of Service: 09/05/21 Interval History: the patient was seen and evaluated this morning Laying in bed, encephalopathic and lethargic not responsive No more diarrhea Denies any fever, chills or shortness of breath No reported other overnight events. Review of Systems Not responsive to answer this morning Physical Exam Vital Signs: Vital Signs: Last Vital Signs Temp 97.1 F 09/05/21 07:16 Pulse 85 09/05/21 08:20 Resp 16 09/05/21 07:16 BP 143/81 H 09/05/21 08:20 Pulse Ox 99 09/05/21 07:16 BMI result Body Mass Index 22.3 Const: Other: Constitutional : The encephalopathi c, not in distress Neck : Normal ins pection, Supple Ca rdiovascular : RRR , S1 S2, no lower extremity edema Re spiratory :? Fair bilateral air entr y,? no crackles, w heezes or rhonchi Gastrointestinal:? soft, lax, Normal bowel sounds, mil d tenderness over the left lower jerry drant Skin : Warm, Dry Neurological : Encephalopathic , withdrawal from pain only, none vo matt No focal defic it appreciated Objective Data Active Medications Acetaminophen (Acetaminophen 325 Mg Tablet) 650 mg PO Q6H PRN PRN Reason: Pain, Mild (Pain Scale 1-3) Insulin Human Lispro (Insulin Lispro 100 Unit/Ml 3 Ml Vial) 0 unit SUBCUT QIDACHS [facility]; Protocol Last Admin: 09/05/21 08:10 Dose: Not Given Documented by: ERE Non-Admin Reason: No Insulin Coverage Isosorbide Mononitrate (Isosorbide Mononitrate 30 Mg Tab.Er.24h) 30 mg PO DAILY [facility]; Protocol Last Admin: 09/05/21 08:20 Dose: 30 mg Documented by: REE Levothyroxine Sodium (Levothyroxine Sodium 112 Mcg Tablet) 112 mcg PO DAILY@0600 [facility] Last Admin: 09/05/21 06:13 Dose: 112 mcg Documented by: JAN Metoprolol Tartrate (Metoprolol Tartrate 50 Mg Tablet) 50 mg PO BID [facility]; Protocol Last Admin: 09/05/21 08:19 Dose: 50 mg Documented by: REE Ondansetron HCl (Ondansetron Hcl 4 Mg/2 Ml Vial) 4 mg IVPUSH Q8H PRN PRN Reason: Nausea and Vomiting Pharmacy Consult (Consult Rx Perform Med Rec) 1 each MISCELLANE ONCE PRN PRN Reason: Consult order Potassium Chloride (Potassium Chloride Packet 20 Meq Packet) 40 meq PO DAILY [facility] Last Admin: 09/05/21 08:19 Dose: 40 meq Documented by: REE Rivaroxaban (Rivaroxaban 15 Mg Tablet) 15 mg PO DAILY@2000 [facility] Last Admin: 09/04/21 20:25 Dose: 15 mg Documented by: JAN Sodium Chloride (0.9 % Sodium Chloride Flush 3 Ml Syringe) 3 ml IVFLUSH QSHIFT [facility] Last Admin: 09/05/21 08:18 Dose: 3 ml Documented by: REE Vancomycin HCl (Vancomycin Hcl Oral Solution 125 Mg/5 Ml Soln.Recon) 125 mg PO Q6H [facility] Last Admin: 09/05/21 08:18 Dose: 125 mg Documented by: REE Labs CBC & Chem 7: 09/03/21 05:57 09/03/21 05:57 Labs: Laboratory Results - last 24 hr 09/04/21 09/04/21 09/04/21 11:35 11:37 16:27 POC Glucose 198 H 143 H COVID-19 ([facility]) Negative COVID-19 Clin Com See Note 09/04/21 09/05/21 20:12 07:18 POC Glucose 273 H 138 H COVID-19 ([facility]) COVID-19 Clin Com Assessment and Plan (1) Clostridioides difficile infection: Status: Acute (2) Weakness: Status: Acute (3) Acute UTI: Status: Acute (4) Metabolic encephalopathy: Status: Acute Assessment and Plan: An 81 years old lady with PMH of diabetes, CHF, HTN, PAF among others who presented to the hospital from SNF with increased weakness and diarrhea. C diff infection Confirmed by stool testing Toxin test is negative, with mean only career status Continue vancomycin orally q.6 given she is on antibiotics now Pending ID evaluation for long-term care Metabolic encephalopathy 2/2 UTI Reported Pseudomonas and Klebsiella, could not see the actual report as it was not done here Urine culture growing 50,000 mixed bacteria Primarily mentation improved but after stopping cefepime she became more encephalopathic Restart cefepime for recent pseudomonal infection Type 2 diabetes POC, diabetic diet Sliding scale insulin Atrial fibrillation continue Xarelto and metoprolol DVT PPX Xarelto Dispo: Plan was to discharge the patient to the facility while of antibiotic for the mixed urine culture. Because of her altered mentation she was restarted on cefepime. She will need to be discharge when mentating better on anti pseudomonal antibiotic. Quality Stroke Does the patient have a stroke diagnosis?: No VTE Prior VTE?: No VTE Risk Level:: Medical - moderate - high VTE Device Contraindication: Treatment Not Indicated VTE Drug Contraindication: N/A - Med Ordered
--- NOTE | 2021-09-05 10:47 | P.CNID_ITS ---
History of Present Illness Data of Consult Service Date: 09/04/21 Requesting physician: Yelitza Hernandez Primary Care Provider: Narinder Lawson MD [facility] Reason for consult: encephalopathy She comes in with weakness and not able to say if has dysuria She is not very responsive She has urine positive nitrite and leukocyte and 08/29 another micro result shows Pseudomonas Review of Systems Review of Systems: Yes all other systems are reviewed and are negative PMFSH Past Medical History Medical History Breast cancer CAD (coronary artery disease) Chronic combined systolic and diastolic CHF (congestive heart failure) Dementia Diabetes mellitus HTN (hypertension) Hypothyroid LBBB (left bundle branch block) Nephrolithiasis Paroxysmal A-fib Presence of stent in LAD coronary artery Family History Family History Father CAD (coronary artery disease) Diabetes Mother CAD (coronary artery disease) Family history: reviewed and not pertinent Surgical History Surgical History S/P cholecystectomy Status post cardiac pacemaker procedure Social History Social History Household Members: Other Household Members Other:: residents Housing: [facility]dc Do you presently have visiting nurse or other home services: Yes Unable to assess alcohol history related to: Unable to respond Alcohol intake: never Patient Tobacco Use Status: Never used Tobacco Advance Directives Date on File: 07/17/21 service: No Current occupational status: retired Meds Allergies Allergy/AdvReac Type Severity Reaction Status Date / Time No Known Allergies Allergy Mild NONE Unverified 06/02/20 16:28 sesame seed [SESAME SEED] Allergy Unknown UNK Unverified 06/07/20 08:31 spider bites Allergy Unknown severe Uncoded 04/22/20 00:00 Active Medications: Current Medications Acetaminophen (Acetaminophen 325 Mg Tablet) 650 mg PO Q6H PRN PRN Reason: Pain, Mild (Pain Scale 1-3) Cefepime HCl 1 gm/ Sodium (Chloride) 50 mls @ 100 mls/hr IV Q12H [facility] Insulin Human Lispro (Insulin Lispro 100 Unit/Ml 3 Ml Vial) 0 unit SUBCUT QIDACHS [facility]; Protocol Last Admin: 12/21/21 08:10 Dose: Not Given Documented by: Isosorbide Mononitrate (Isosorbide Mononitrate 30 Mg Tab.Er.24h) 30 mg PO DAILY [facility]; Protocol Last Admin: 09/05/21 08:20 Dose: 30 mg Documented by: Levothyroxine Sodium (Levothyroxine Sodium 112 Mcg Tablet) 112 mcg PO DAILY@0600 [facility] Last Admin: 09/05/21 06:13 Dose: 112 mcg Documented by: Metoprolol Tartrate (Metoprolol Tartrate 50 Mg Tablet) 50 mg PO BID [facility]; Protocol Last Admin: 09/05/21 08:19 Dose: 50 mg Documented by: Ondansetron HCl (Ondansetron Hcl 4 Mg/2 Ml Vial) 4 mg IVPUSH Q8H PRN PRN Reason: Nausea and Vomiting Pharmacy Consult (Consult Rx Perform Med Rec) 1 each MISCELLANE ONCE PRN PRN Reason: Consult order Potassium Chloride (Potassium Chloride Packet 20 Meq Packet) 40 meq PO DAILY [facility] Last Admin: 09/05/21 08:19 Dose: 40 meq Documented by: Rivaroxaban (Rivaroxaban 15 Mg Tablet) 15 mg PO DAILY@1999 [facility] Last Admin: 09/04/21 20:25 Dose: 15 mg Documented by: Sodium Chloride (0.9 % Sodium Chloride Flush 3 Ml Syringe) 3 ml IVFLUSH QSHIFT [facility] Last Admin: 09/05/21 08:18 Dose: 3 ml Documented by: Vancomycin HCl (Vancomycin Hcl Oral Solution 125 Mg/5 Ml Soln.Recon) 125 mg PO Q6H [facility] Last Admin: 09/05/21 08:18 Dose: 125 mg Documented by: Home Medications Medication Instructions Recorded Confirmed Last Taken Type isosorbide mononitrate 20 mg tablet 1 tab PO DAILY@0800 07/16/21 09/01/21 Unknown History levothyroxine 112 mcg tablet 1 tab PO DAILY@0600 07/16/21 09/01/21 Unknown History metoprolol tartrate 50 mg tablet 1 tab PO BID 07/16/21 09/01/21 Unknown History potassium chloride 10 mEq 4 cap PO DAILY@1200 07/16/21 09/01/21 Unknown History capsule,extended release rivaroxaban 20 mg tablet (Xarelto) 1 tab PO DAILY@199907/16/21 09/01/21 Unknown History Physical Exam Vital Signs: Vital Signs: Last Vital Signs Temp 97.1 F 09/05/21 07:16 Pulse 85 09/05/21 08:20 Resp 16 09/05/21 07:16 BP 143/81 H 09/05/21 08:20 Pulse Ox 99 09/05/21 07:16 BMI result Body Mass Index 22.3 Const: General: cooperative HENMT: Head: Yes normal to inspection Mouth: Normal oral and palatal mucosa present Resp: Effort & Inspection: normal respiratory effort Cardio: Rate: regular rate Rhythm: regular rhythm GI: Palpation (GI): Soft to palpation and nontender Skin: General skin exam: no rashes or lesions noted Results Labs CBC & Chem 7: 09/03/21 05:57 09/03/21 05:57 Microbiology Microbiology Results: Microbiology 09/01/21 15:07 Blood - Venous Blood Culture - Preliminary No growth after 48 hours. 09/01/21 14:50 Blood - Venous Blood Culture - Preliminary No growth after 48 hours. 09/01/21 16:05 Urine Catheterized - Wray Catheter Urine Culture - Final Assessment and Plan (1) Acute UTI: Status: Acute culture unremarkable at this time IV Cefepime for 5 more days (2) Metabolic encephalopathy: Status: Acute (3) Clostridioides difficile infection: Status: Acute Toxin may be below limit of detection so would treat for 10 days with Vancomycin
[2021-09-05 11:42] LABS: Glucose, Whole Blood 153 mg/dL (60-115)
[2021-09-05] MEDS: Insulin Lispro 100 UNIT/ML 3 ML VIAL SUBCUT (12:12)
[2021-09-05] MEDS: cefEPime HCl 1 GM in 0.9 % Sodium Chloride 50 ML IV ×2 (13:57→22:40)
[2021-09-05 16:50] LABS: Glucose, Whole Blood 132 mg/dL (60-115)
[2021-09-05 20:42] LABS: Glucose, Whole Blood 127 mg/dL (60-115)
[2021-09-05] MEDS: Rivaroxaban 15 MG TABLET PO (21:55)
[2021-09-06] VITALS (7 sets, daily range): BP systolic 107–181; BP diastolic 63–96; PULSE 60–114; RESP 15–18; TEMP 36.1–36.4; O2SAT 96–99
[2021-09-06] MEDS: Levothyroxine Sodium 112 MCG TABLET PO (05:31)
[2021-09-06 06:13] LABS: Anion Gap 18 (12-20); Blood Urea Nitrogen 16 mg/dL (9-16); Calcium 9.3 mg/dL (8.4-10.2); Carbon Dioxide 20 mmol/L (22-29); Chloride 111 mmol/L (96-108); Creatinine Clr Calc Pharmacy 41.3; Estimated Glomerular Filt Rate > 60; Glucose Random 110 mg/dL (60-115); Potassium 4.6 mmol/L (3.3-5.1); Sodium 144 mmol/L (135-145)
[2021-09-06 07:33] LABS: Glucose, Whole Blood 124 mg/dL (60-115)
[2021-09-06] MEDS: 0.9 % Sodium Chloride Flush 3 ML SYRINGE IVFLUSH ×3 (09:30→20:19)
[2021-09-06] MEDS: vancomycin HCL Oral Solution 125 MG/5 ML SOLN.RECON PO ×3 (09:31→20:19)
[2021-09-06] MEDS: Metoprolol Tartrate 50 MG TABLET PO ×2 (09:32→20:18)
[2021-09-06] MEDS: Isosorbide Mononitrate 30 MG TAB.ER.24H PO (09:33)
--- NOTE | 2021-09-06 10:50 | PC.NURSE ---
Skin/ wound assessment completed. Patient has redness with dry shearing feliz to bilateral buttocks. Barrier cream applied. Scattered bruising on arms. No other skin issues noted at this time.
[2021-09-06 11:27] LABS: Glucose, Whole Blood 130 mg/dL (60-115)
[2021-09-06] MEDS: cefEPime HCl 1 GM in 0.9 % Sodium Chloride 50 ML IV ×2 (11:43→22:46)
--- NOTE | 2021-09-06 11:53 | MHC.CM.PN ---
EMR REVIEWED, PER HOSPITALIST PT IS NOT AT BASELINE AND WILL REMAIN IN HOSPITAL X4 MORED DAYS OF IV ABX, CM ATTEMPTED TO CONTACT [facility]TR MI AT 11:50AM AT NUMBER ON FILE, NO ANSWER, MESSAGE LEFT W/UPDATED PLAN AND CM CONTACT NUMBER, CM TO CONT TO FOLLOW D/C NEEDS.
--- NOTE | 2021-09-06 12:55 | HO.PM.IMPN ---
Subjective Subjective Date of Service: 09/06/21 Interval History: cc: ams interval hsitory: alert but not talking Review of Systems Review of Systems: Yes Unobtainable due to mental condition Physical Exam Vital Signs: Vital Signs: Last Vital Signs Temp 97.0 F 09/06/21 11:12 Pulse 60 09/06/21 11:12 Resp 15 09/06/21 11:12 BP 181/79 H 09/06/21 11:12 Pulse Ox 98 09/06/21 11:12 BMI result Body Mass Index 22.3 General: Alert not talking, not following commands, no acute distress Resp: CTA bilateral, no accessory muscles used CVS: S1,S2,RRR GI: soft, non tender, non distended Neuro: motor grossly intact, alert Psych: impaired insight Objective Data Active Medications Acetaminophen (Acetaminophen 325 Mg Tablet) 650 mg PO Q6H PRN PRN Reason: Pain, Mild (Pain Scale 1-3) Cefepime HCl 1 gm/ Sodium (Chloride) 50 mls @ 100 mls/hr IV Q12H [facility] Last Admin: 09/06/21 11:43 Dose: 100 mls/hr Documented by: WENDY Insulin Human Lispro (Insulin Lispro 100 Unit/Ml 3 Ml Vial) 0 unit SUBCUT QIDACHS [facility]; Protocol Last Admin: 09/06/21 11:42 Dose: Not Given Documented by: WENDY Non-Admin Reason: BS 124 Isosorbide Mononitrate (Isosorbide Mononitrate 30 Mg Tab.Er.24h) 30 mg PO DAILY [facility]; Protocol Last Admin: 09/06/21 09:33 Dose: 30 mg Documented by: WENDY Levothyroxine Sodium (Levothyroxine Sodium 112 Mcg Tablet) 112 mcg PO DAILY@0600 [facility] Last Admin: 09/06/21 05:31 Dose: 112 mcg Documented by: MAX Metoprolol Tartrate (Metoprolol Tartrate 50 Mg Tablet) 50 mg PO BID [facility]; Protocol Last Admin: 09/06/21 09:32 Dose: 50 mg Documented by: WENDY Ondansetron HCl (Ondansetron Hcl 4 Mg/2 Ml Vial) 4 mg IVPUSH Q8H PRN PRN Reason: Nausea and Vomiting Pharmacy Consult (Consult Rx Perform Med Rec) 1 each MISCELLANE ONCE PRN PRN Reason: Consult order Potassium Chloride (Potassium Chloride Packet 20 Meq Packet) 40 meq PO DAILY [facility] Last Admin: 09/06/21 09:46 Dose: Not Given Documented by: WENDY Non-Admin Reason: Hold per Dr. Gardner Rivaroxaban (Rivaroxaban 15 Mg Tablet) 15 mg PO DAILY@1999 [facility] Last Admin: 09/05/21 21:55 Dose: 15 mg Documented by: MAX Sodium Chloride (0.9 % Sodium Chloride Flush 3 Ml Syringe) 3 ml IVFLUSH QSHIFT [facility] Last Admin: 09/06/21 09:30 Dose: 3 ml Documented by: WENDY Vancomycin HCl (Vancomycin Hcl Oral Solution 125 Mg/5 Ml Soln.Recon) 125 mg PO Q6H [facility] Last Admin: 09/06/21 09:31 Dose: 125 mg Documented by: WENDY Labs CBC & Chem 7: 09/03/21 05:57 09/06/21 05:37 Labs: Laboratory Results - last 24 hr 09/01/21 09/01/21 09/02/21 14:51 15:25 07:10 Sodium Cancelled 143 144 Anion Gap Estim Creat Clear Calc Estimated GFR POC Glucose Random Glucose Calcium 09/03/21 09/05/21 09/05/21 05:57 16:22 20:36 Sodium 142 Anion Gap Estim Creat Clear Calc Estimated GFR POC Glucose 132 H 127 H Random Glucose Calcium 09/06/21 09/06/21 09/06/21 05:37 07:06 11:12 Sodium 144 Anion Gap 18 Estim Creat Clear Calc 41.3 Estimated GFR > 60 POC Glucose 124 H 130 H Random Glucose 110 Calcium 9.3 Assessment and Plan (1) Clostridioides difficile infection: Status: Acute (2) Weakness: Status: Acute (3) Acute UTI: Status: Acute (4) Metabolic encephalopathy: Status: Acute Assessment and Plan: An 81 years old lady with PMH of diabetes, CHF, HTN, PAF among others who presented to the hospital from SNF with increased weakness and diarrhea. C diff infection Confirmed by stool testing Toxin test is negative, with mean only career status Continue vancomycin orally q.6 day 10 Metabolic encephalopathy 2/2 UTI Reported Pseudomonas and Klebsiella, Primarily mentation improved but after stopping cefepime she became more encephalopathic ID appreciated: cefepime 4 more days Type 2 diabetes POC, diabetic diet Sliding scale insulin chronic Atrial fibrillation continue Xarelto and metoprolol DVT PPX Xarelto Quality Stroke Does the patient have a stroke diagnosis?: No VTE Prior VTE?: No VTE Risk Level:: Medical - moderate - high VTE Device Contraindication: Treatment Not Indicated VTE Drug Contraindication: N/A - Med Ordered
--- NOTE | 2021-09-06 15:26 | MHC.SLORD ---
Speech Language Pathology Order Status: WINDOWS SYSTEMS ADMIN received order for bedside swallow evaluation. WINDOWS SYSTEMS ADMIN attempted to see patient this afternoon. Patient was verbally/visually cued, and was offered several different food and drink items, but patient refused to open her mouth. Unable to administer PO. Per chart review, patient was previously seen by WINDOWS SYSTEMS ADMIN in 2020 and 2019. On 07/17/21 patient was recommended pureed solids and nectar thick liquids. 06/10/20 Patient was recommended pureed solids and thin liquids. Patient's baseline at living facility at that time was pureed/thin with 1:1 assistance. WINDOWS SYSTEMS ADMIN called [facility] this afternoon x2, but was unable to reach anyone. , RN, RD notified by [employer] message. Plan for evaluation tomorrow morning.
[2021-09-06 16:14] LABS: Glucose, Whole Blood 125 mg/dL (60-115)
[2021-09-06 20:15] LABS: Glucose, Whole Blood 126 mg/dL (60-115)
[2021-09-06] MEDS: Rivaroxaban 15 MG TABLET PO (20:19)
[2021-09-07] VITALS (12 sets, daily range): BP systolic 118–186; BP diastolic 78–92; PULSE 75–166; RESP 16–20; TEMP 36–37; O2SAT 97–100
--- NOTE | 2021-09-07 | EEG_ITS ---
This is a 16-channel EEG with an EKG lead. The patient is unresponsive during the tracing with eyes deviated to the left and jerking to the left. Background EEG rhythm was continuously asymmetrical with sharply controlled theta to delta range discharges noted in left hemispheric leads, especially in left frontal central area. No definite spike was noted. Frequent lead and muscle artifacts were noted. Cardiac lead revealed tachycardia. 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 MD VALENCIA Soriano/DANA / [id number]
--- NOTE | 2021-09-07 | ECG_ITS ---
Test Reason : tachy Blood Pressure : / mmHG Vent. Rate : 160 BPM Atrial Rate : 000 BPM P-R Int : 000 ms QRS Dur : 118 ms QT Int : 314 ms P-R-T Axes : 000 064 138 degrees QTc Int : 512 ms Atrial fibrillation with rapid ventricular response Left bundle branch block Abnormal ECG When compared with ECG of 01-SEP-2021 19:05, Rhythm change Referred By: Messi Del Toro Electronically Signed By:SALOME COSTA
[2021-09-07] MEDS: vancomycin HCL Oral Solution 125 MG/5 ML SOLN.RECON PO (03:10)
[2021-09-07 05:43] LABS: Hematocrit 46.7 % (37.0-47.0); Hemoglobin 15.1 g/dl (12.0-16.0); Mean Corpuscular HGB Conc 32.3 g/dl (31.0-35.0); Mean Corpuscular Hemoglobin 29.7 pg (27.0-33.0); Mean Corpuscular Volume 91.7 fL (80.0-98.0); Mean Platelet Volume 10.8 fL (9.4-12.3); Platelet Count 255 X10*3/uL (160-400); Red Blood Count 5.09 X10*6/uL (4.20-5.50); Red Cell Distribution Width 13.7 % (11.0-16.0); White Blood Count 9.7 X10*3/uL (4.8-10.8)
[2021-09-07] MEDS: Levothyroxine Sodium 112 MCG TABLET PO (05:46)
[2021-09-07 06:13] LABS: Anion Gap 19 (12-20); Blood Urea Nitrogen 14 mg/dL (9-16); Calcium 9.4 mg/dL (8.4-10.2); Carbon Dioxide 21 mmol/L (22-29); Chloride 108 mmol/L (96-108); Creatinine Clr Calc Pharmacy 42.8; Estimated Glomerular Filt Rate > 60; Glucose Fasting 171 mg/dL (60-99); Potassium 4.2 mmol/L (3.3-5.1); Sodium 144 mmol/L (135-145)
[2021-09-07 07:30] LABS: Glucose, Whole Blood 205 mg/dL (60-115)
[2021-09-07] MEDS: 0.9 % Sodium Chloride Flush 3 ML SYRINGE IVFLUSH ×3 (08:47→23:12)
[2021-09-07] MEDS: Metoprolol Tartrate 5 MG/5 ML VIAL IVPUSH ×2 (09:29→12:36)
--- NOTE | 2021-09-07 10:16 | HO.PM.IMPN ---
Subjective Subjective Date of Service: 09/07/21 Interval History: cc: ams interval hsitory: not tracking Review of Systems Review of Systems: Yes Unobtainable due to mental condition Physical Exam Vital Signs: Vital Signs: Last Vital Signs Temp 97.5 F 09/07/21 08:43 Pulse 160 H 09/07/21 09:29 Resp 16 09/07/21 08:43 BP 130/90 H 09/07/21 09:29 Pulse Ox 99 09/07/21 08:43 BMI result Body Mass Index 22.3 General: Awake, not responding Resp: CTA bilateral, no accessory muscles used CVS: S1,S2,rapid, irregular GI: soft, non tender, non distended Neuro: contracted, but not rigid, awake but not responding Psych: impaired insight Objective Data Active Medications Acetaminophen (Acetaminophen 325 Mg Tablet) 650 mg PO Q6H PRN PRN Reason: Pain, Mild (Pain Scale 1-3) Insulin Human Lispro (Insulin Lispro 100 Unit/Ml 3 Ml Vial) 0 unit SUBCUT QIDACHS [facility]; Protocol Last Admin: 09/07/21 08:46 Dose: Not Given Documented by: DK Non-Admin Reason: pt not taking anything by mouth at this time Isosorbide Mononitrate (Isosorbide Mononitrate 30 Mg Tab.Er.24h) 30 mg PO DAILY [facility]; Protocol Last Admin: 09/07/21 08:49 Dose: Not Given Documented by: DK Non-Admin Reason: pt unable to take anything PO at this time Levothyroxine Sodium (Levothyroxine Sodium 112 Mcg Tablet) 112 mcg PO DAILY@0600 [facility] Last Admin: 09/07/21 05:46 Dose: 112 mcg Documented by: KIRSTEN Metoprolol Tartrate (Metoprolol Tartrate 50 Mg Tablet) 50 mg PO BID [facility]; Protocol Last Admin: 09/07/21 08:49 Dose: Not Given Documented by: DK Non-Admin Reason: pt unable to take anything PO at this time Metoprolol Tartrate (Metoprolol Tartrate 5 Mg/5 Ml Vial) 5 mg IVPUSH Q6H PRN PRN Reason: HR>100 Last Admin: 09/07/21 09:29 Dose: 5 mg Documented by: KD Ondansetron HCl (Ondansetron Hcl 4 Mg/2 Ml Vial) 4 mg IVPUSH Q8H PRN PRN Reason: Nausea and Vomiting Pharmacy Consult (Consult Rx Perform Med Rec) 1 each MISCELLANE ONCE PRN PRN Reason: Consult order Potassium Chloride (Potassium Chloride Packet 20 Meq Packet) 40 meq PO DAILY [facility] Last Admin: 09/07/21 08:50 Dose: Not Given Documented by: DK Non-Admin Reason: pt unable to take anything PO at this time Rivaroxaban (Rivaroxaban 15 Mg Tablet) 15 mg PO DAILY@1999 [facility] Last Admin: 09/06/21 20:19 Dose: 15 mg Documented by: RAVI Sodium Chloride (0.9 % Sodium Chloride Flush 3 Ml Syringe) 3 ml IVFLUSH QSHIFT [facility] Last Admin: 09/07/21 08:47 Dose: 3 ml Documented by: DK Vancomycin HCl (Vancomycin Hcl Oral Solution 125 Mg/5 Ml Soln.Recon) 125 mg PO Q6H [facility] Last Admin: 09/07/21 08:48 Dose: Not Given Documented by: DK Non-Admin Reason: pt unable to take anything PO at this time Labs CBC & Chem 7: 09/07/21 05:07 09/07/21 05:07 Labs: Laboratory Results - last 24 hr 09/06/21 09/06/21 09/06/21 11:12 16:09 20:04 MCV MCH MCHC RDW Plt Count MPV Absolute Nucleated RBC Nucleated RBC % (auto) Anion Gap Estim Creat Clear Calc Estimated GFR POC Glucose 130 H 125 H 126 H Fasting Glucose Calcium 09/07/21 09/07/21 09/07/21 05:07 05:07 07:05 MCV 91.7 MCH 29.7 MCHC 32.3 RDW 13.7 Plt Count 255 MPV 10.8 Absolute Nucleated RBC 0.000 Nucleated RBC % (auto) 0.0 Anion Gap 19 Estim Creat Clear Calc 42.8 Estimated GFR > 60 POC Glucose 205 H Fasting Glucose 171 H Calcium 9.4 Microbiology Microbiology Results: Microbiology 09/01/21 15:07 Blood Culture - Final Blood - Venous No growth after 5 days. 09/01/21 14:50 Blood Culture - Final Blood - Venous No growth after 5 days. Assessment and Plan (1) Clostridioides difficile infection: Status: Acute (2) Weakness: Status: Acute (3) Acute UTI: Status: Acute (4) Metabolic encephalopathy: Status: Acute Assessment and Plan: An 81 years old lady with PMH of diabetes, CHF, HTN, PAF among others who presented to the hospital from SNF with increased weakness and diarrhea. C diff infection Confirmed by stool testing Continue vancomycin orally q.6 day 01/23 Metabolic encephalopathy worsening question of cefepime neurotoxicity, will hold for now, doubt UTI as cause of encephalopathy as patient has been on treatement and is not septic check EEG neuro eval 2/ UTI Reported Pseudomonas and Klebsiella, recommended for 3 more days cefepime, will hold as above Type 2 diabetes POC, diabetic diet Sliding scale insulin chronic Atrial fibrillation with rapid ventricular respose continue Xarelto and metoprolol DVT PPX Xarelto Quality Stroke Does the patient have a stroke diagnosis?: No VTE Prior VTE?: No VTE Risk Level:: Medical - moderate - high VTE Device Contraindication: Treatment Not Indicated VTE Drug Contraindication: N/A - Med Ordered
[2021-09-07] MEDS: LORazepam 2 MG/ML VIAL 1 MG IVPUSH (11:57)
[2021-09-07 12:30] LABS: Glucose, Whole Blood 221 mg/dL (60-115)
[2021-09-07] MEDS: levETIRAcetam in NaCl (iso-os) 500 MG/100 ML PIGGYBACK 400 MG IV (12:40)
--- NOTE | 2021-09-07 13:33 | PM.NEUROCN ---
History of Present Illness Data of Consult Service Date: 09/07/21 Primary Care Provider: Narinder Lawson MD [facility] Reason for consult: Seizure 81 years old woman admitted for change in mental status and diagnosed with UTI. She was noted to be in a change in mental status with suspicion of seizure and I was asked to see her. I saw her on her bed when she was going to have EEG. She was unresponsive with her eyes turned to the left and jerking. Review of Systems Review of Systems: Cannot be done with her PMFSH Past Medical History Medical History Breast cancer CAD (coronary artery disease) Chronic combined systolic and diastolic CHF (congestive heart failure) Dementia Diabetes mellitus HTN (hypertension) Hypothyroid LBBB (left bundle branch block) Nephrolithiasis Paroxysmal A-fib Presence of stent in LAD coronary artery Family History Family History Father CAD (coronary artery disease) Diabetes Mother CAD (coronary artery disease) Family history: reviewed and not pertinent Surgical History Surgical History S/P cholecystectomy Status post cardiac pacemaker procedure Social History Social History Household Members: Other Household Members Other:: residents Housing: Group Home Do you presently have visiting nurse or other home services: Yes Unable to assess alcohol history related to: Unable to respond Alcohol intake: never Patient Tobacco Use Status: Never used Tobacco Advance Directives Date on File: 07/17/21 service: No Current occupational status: retired Meds Allergies Allergy/AdvReac Type Severity Reaction Status Date / Time No Known Allergies Allergy Mild NONE Unverified 06/02/20 16:28 sesame seed [SESAME SEED] Allergy Unknown UNK Unverified 06/07/20 08:31 spider bites Allergy Unknown severe Uncoded 04/22/20 00:00 Active Medications: Current Medications Acetaminophen (Acetaminophen 325 Mg Tablet) 650 mg PO Q6H PRN PRN Reason: Pain, Mild (Pain Scale 1-3) Diltiazem HCl 125 mg/ Sodium (Chloride) 125 mls @ 0 mls/hr IVCONT .Q0M [facility]; Protocol Insulin Human Lispro (Insulin Lispro 100 Unit/Ml 3 Ml Vial) 0 unit SUBCUT QIDACHS [facility]; Protocol Last Admin: 09/07/21 12:44 Dose: Not Given Documented by: Isosorbide Mononitrate (Isosorbide Mononitrate 30 Mg Tab.Er.24h) 30 mg PO DAILY [facility]; Protocol Last Admin: 09/07/21 08:49 Dose: Not Given Documented by: Levothyroxine Sodium (Levothyroxine Sodium 112 Mcg Tablet) 112 mcg PO DAILY@06 [facility] Last Admin: 09/07/21 05:46 Dose: 112 mcg Documented by: Metoprolol Tartrate (Metoprolol Tartrate 50 Mg Tablet) 50 mg PO BID [facility]; Protocol Last Admin: 09/07/21 08:49 Dose: Not Given Documented by: Metoprolol Tartrate (Metoprolol Tartrate 5 Mg/5 Ml Vial) 5 mg IVPUSH Q6H PRN PRN Reason: HR>100 Last Admin: 09/07/21 12:36 Dose: 5 mg Documented by: Ondansetron HCl (Ondansetron Hcl 4 Mg/2 Ml Vial) 4 mg IVPUSH Q8H PRN PRN Reason: Nausea and Vomiting Pharmacy Consult (Consult Rx Perform Med Rec) 1 each MISCELLANE ONCE PRN PRN Reason: Consult order Potassium Chloride (Potassium Chloride Packet 20 Meq Packet) 40 meq PO DAILY [facility] Last Admin: 09/07/21 08:50 Dose: Not Given Documented by: Rivaroxaban (Rivaroxaban 15 Mg Tablet) 15 mg PO DAILY@1999 [facility] Last Admin: 09/06/21 20:19 Dose: 15 mg Documented by: Sodium Chloride (0.9 % Sodium Chloride Flush 3 Ml Syringe) 3 ml IVFLUSH QSHIFT [facility] Last Admin: 09/07/21 08:47 Dose: 3 ml Documented by: Vancomycin HCl (Vancomycin Hcl Oral Solution 125 Mg/5 Ml Soln.Recon) 125 mg PO Q6H [facility] Last Admin: 09/07/21 08:48 Dose: Not Given Documented by: Home Medications Medication Instructions Recorded Confirmed Last Taken Type isosorbide mononitrate 20 mg tablet 1 tab PO DAILY@0800 07/16/21 09/01/21 Unknown History levothyroxine 112 mcg tablet 1 tab PO DAILY@0600 07/16/21 09/01/21 Unknown History metoprolol tartrate 50 mg tablet 1 tab PO BID 07/16/21 09/01/21 Unknown History potassium chloride 10 mEq 4 cap PO DAILY@1200 07/16/21 09/01/21 Unknown History capsule,extended release rivaroxaban 20 mg tablet (Xarelto) 1 tab PO DAILY@199907/16/21 09/01/21 Unknown History Physical Exam Vital Signs: Vital Signs: Last Vital Signs Temp 97.5 F 09/07/21 08:43 Pulse 94 09/07/21 10:29 Resp 16 09/07/21 10:29 BP 142/86 H 09/07/21 10:29 Pulse Ox 99 09/07/21 08:43 BMI result Body Mass Index 22.3 Neuro: Other: Unresponsive with eyes closed. I was able to open her eyes which were deviated to left and jerking towards left. There was little bit of chain movement. Otherwise no obvious abnormal movement was noted. Plantars seem to be extensor. Reflexes were absent. Results Labs CBC & Chem 7: 09/07/21 05:07 09/07/21 05:07 Labs: Short CBC 09/07/21 Range/Units 05:07 WBC 9.7 (4.8-10.8) X10*3/uL Hgb 15.1 (12.0-16.0) g/dl Hct 46.7 (37.0-47.0) % Plt Count 255 (160-400) X10*3/uL BMP 09/07/21 05:07 Sodium 144 Potassium 4.2 Chloride 108 Carbon Dioxide 21 L BUN 14 Creatinine 0.86 Calcium 9.4 Her EEG revealed a right hemispheric, fronto temporal, ictal discharges. CT scan of brain has revealed moderately severe diffuse atrophy and moderately severe microvascular ischemic changes. Microbiology Microbiology Results: Microbiology 09/01/21 15:07 Blood - Venous Blood Culture - Final No growth after 5 days. 09/01/21 14:50 Blood - Venous Blood Culture - Final No growth after 5 days. 09/01/21 16:05 Urine Catheterized - Wray Catheter Urine Culture - Final Assessment and Plan (1) Status epilepticus: Status: Acute 81 years old woman with partial status epilepticus. Etiology was unclear specially about infectious or noninfectious nature of this status. Until proven otherwise, infectious nature should also be considered. I recommended lorazepam stat dose and then loading with Keppra. I recommend appropriate evaluation including analysis of spinal fluid to rule out meningoencephalitis. During this time I recommend covering her with broad-spectrum antibiotic and also for viral encephalitis. Procedures Date of Service Date of Service: 09/07/21
[2021-09-07] MEDS: dilTIAZem HCL 125 MG in 0.9 % Sodium Chloride 100 ML 10 MG IVCONT (14:00)
[2021-09-07] MEDS: levETIRAcetam in NaCl (iso-os) 1,000 MG/100 ML PIGGYBACK 400 MG IV (14:20)
--- NOTE | 2021-09-07 15:07 | MHC.SLORD ---
Speech Language Pathology Order Status: Attempted to see pt this a.m. for BSE. Pt was away for procedure. Nursing reported that Pt was unresponsive this am, not appropriate for Swallowing evaluation at this time. Will re-attempt a.m. 09/08.
[2021-09-07 16:24] LABS: Glucose, Whole Blood 215 mg/dL (60-115)
[2021-09-07] MEDS: Digoxin 0.5 MG/2 ML AMPUL 0.25 MG IVPUSH ×2 (16:30→23:11)
[2021-09-07] MEDS: PHENobarbitaL sodium 130 MG/ML VIAL 260 MG IVPUSH (17:11)
[2021-09-07 20:37] LABS: Glucose, Whole Blood 241 mg/dL (60-115)
[2021-09-07] MEDS: dilTIAZem HCL 125 MG in 0.9 % Sodium Chloride 100 ML 15 MG IVCONT (23:12)
[2021-09-08] VITALS: BP 146/88; PULSE 94; RESP 16; TEMP 36; O2SAT 99
[2021-09-08] MEDS: levETIRAcetam in NaCl (iso-os) 1,000 MG/100 ML PIGGYBACK 400 MG IV (02:26)
[2021-09-08 03:23] VITALS: BP 155/81; PULSE 92; RESP 16; TEMP 36.4; O2SAT 98
[2021-09-08 05:56] LABS: Hematocrit 48.1 % (37.0-47.0); Hemoglobin 15.5 g/dl (12.0-16.0); Mean Corpuscular HGB Conc 32.2 g/dl (31.0-35.0); Mean Corpuscular Hemoglobin 30.3 pg (27.0-33.0); Mean Corpuscular Volume 93.9 fL (80.0-98.0); Mean Platelet Volume 10.6 fL (9.4-12.3); Platelet Count 231 X10*3/uL (160-400); Red Blood Count 5.12 X10*6/uL (4.20-5.50); White Blood Count 14.5 X10*3/uL (4.8-10.8)
[2021-09-08 06:30] LABS: Anion Gap 18 (12-20); Blood Urea Nitrogen 18 mg/dL (9-16); Calcium 9.6 mg/dL (8.4-10.2); Carbon Dioxide 21 mmol/L (22-29); Chloride 111 mmol/L (96-108); Creatinine Clr Calc Pharmacy 32.8; Estimated Glomerular Filt Rate 46; Glucose Fasting 225 mg/dL (60-99); Potassium 3.9 mmol/L (3.3-5.1); Sodium 146 mmol/L (135-145)
[2021-09-08 07:14] VITALS: BP 166/77; PULSE 118; RESP 18; TEMP 36.6; O2SAT 99
[2021-09-08 07:32] LABS: Glucose, Whole Blood 203 mg/dL (60-115)
--- NOTE | 2021-09-08 10:01 | MHC.CM.PN ---
Addendum entered by Poonam Connors 09/08/21 10:02: PATIENT IS LTC AT [facility] Original Note: [facility] UPDATED WITH CLINICALS. PLAN IS TO BE COMPLETED ABX ON MONDAY 09/10 WITH POTENTIAL DC TO [facility] SNF. CASE MANAGEMENT FOLLOWING.
[2021-09-08] MEDS: 0.9 % Sodium Chloride Flush 3 ML SYRINGE IVFLUSH ×3 (10:21→20:28)
--- NOTE | 2021-09-08 10:43 | MHC.SLORD ---
Speech Language Pathology Order Status: ANAESTHESIOLOGIST has attempted 09/06, 09/07 and 09/08 to assess Pt for safe swallow. On each day, Pt has been unresponsive, unable to wake to safely participate. 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 Noted Diet was ordered for Pt, w/froylan at bedside this morning. Notified , Nutrition by secure text of attempts to assess swallow and recommended NPO until Pt can be safely assessed for swallow function.
--- NOTE | 2021-09-08 10:50 | MHC.CLN ---
F/U SEEN BY ADMINISTRATIVE AIDE WITH RECOMMENDATION FOR NPO SINCE PATIENT NOT RESPONSIVE. DIET CHANGED TO NPO. NO ALTERNATIVE NUTRITION AT THIS TIME PER MD. RD TO FOLLOW.
[2021-09-08 10:55] VITALS: BMI 22.3
--- NOTE | 2021-09-08 11:40 | P.PNIM_ITS ---
Subjective Subjective Date of Service: 09/08/21 Interval History: cc: weakness interval history: unresponsive Review of Systems Review of Systems: Yes Unobtainable due to mental condition Physical Exam Vital Signs: Vital Signs: Last Vital Signs Temp 97.8 F 09/08/21 07:14 Pulse 118 H 09/08/21 07:14 Resp 18 09/08/21 07:14 BP 166/77 H 09/08/21 07:14 Pulse Ox 99 09/08/21 07:14 BMI result Body Mass Index 22.3 General: unresponisve, appears comfortable Resp: CTA bilateral, no accessory muscles used CVS: S1,S2,RRR GI: soft, non tender, non distended Neuro: occasional jaw movements and regular breathing, otherwise no voluntary movements Psych: impaired insight Objective Data Active Medications Acetaminophen (Acetaminophen 325 Mg Tablet) 650 mg PO Q6H PRN PRN Reason: Pain, Mild (Pain Scale 1-3) Diltiazem HCl 125 mg/ Sodium (Chloride) 125 mls @ 0 mls/hr IVCONT .Q0M [facility]; Pro tocol Last Titration: 09/08/21 02:32 Dose: 0 mg/hr, 0 mls/hr Documented by: LUZ Levetiracetam (Keppra) 1,000 mg in 100 mls @ 400 mls/hr IV Q12H [facility] Last Infusion: 09/08/21 03:31 Dose: 0 mls/hr Documented by: LUZ Insulin Human Lispro (Insulin Lispro 100 Unit/Ml 3 Ml Vial) 0 unit SUBCUT QIDACHS [facility]; Protocol Last Admin: 09/08/21 09:03 Dose: Not Given Documented by: RAVI Non-Admin Reason: NPO Isosorbide Mononitrate (Isosorbide Mononitrate 30 Mg Tab.Er.24h) 30 mg PO DAILY [facility]; Protocol Last Admin: 09/08/21 10:27 Dose: Not Given Documented by: RAVI Non-Admin Reason: NPO Levothyroxine Sodium (Levothyroxine Sodium 112 Mcg Tablet) 112 mcg PO DAILY@0600 [facility] Last Admin: 09/08/21 02:26 Dose: Not Given Documented by: LUZ Non-Admin Reason: NPO Metoprolol Tartrate (Metoprolol Tartrate 50 Mg Tablet) 50 mg PO BID [facility]; Protocol Last Admin: 09/08/21 10:27 Dose: Not Given Documented by: RAVI Non-Admin Reason: NPO Metoprolol Tartrate (Metoprolol Tartrate 5 Mg/5 Ml Vial) 5 mg IVPUSH Q6H PRN PRN Reason: HR>100 Last Admin: 09/07/21 12:36 Dose: 5 mg Documented by: JU Morphine Sulfate (Morphine Sulfate 2 Mg/Ml Cartridge) 2 mg IVPUSH Q4H PRN PRN Reason: Discomfort/Shortness of breath Ondansetron HCl (Ondansetron Hcl 4 Mg/2 Ml Vial) 4 mg IVPUSH Q8H PRN PRN Reason: Nausea and Vomiting Pharmacy Consult (Consult Rx Perform Med Rec) 1 each MISCELLANE ONCE PRN PRN Reason: Consult order Potassium Chloride (Potassium Chloride Packet 20 Meq Packet) 40 meq PO DAILY [facility] Last Admin: 09/08/21 10:28 Dose: Not Given Documented by: RAVI Non-Admin Reason: NPO Scopolamine (Scopolamine 1.5 Mg Patch.Td.3) 1.5 mg TRANSDERMA Q72H [facility] Sodium Chloride (0.9 % Sodium Chloride Flush 3 Ml Syringe) 3 ml IVFLUSH QSHIFT [facility] Last Admin: 09/08/21 10:21 Dose: 3 ml Documented by: RAVI Vancomycin HCl (Vancomycin Hcl Oral Solution 125 Mg/5 Ml Soln.Recon) 125 mg PO Q6H [facility] Last Admin: 09/08/21 10:27 Dose: Not Given Documented by: RAVI Non-Admin Reason: NPO Labs CBC & Chem 7: 09/08/21 05:30 09/08/21 05:30 Labs: Laboratory Results - last 24 hr 09/07/21 09/07/21 09/07/21 12:25 16:01 20:31 MCV MCH MCHC RDW Plt Count MPV Absolute Nucleated RBC Nucleated RBC % (auto) Anion Gap Estim Creat Clear Calc Estimated GFR POC Glucose 221 H 215 H 241 H Fasting Glucose Calcium Magnesium 09/08/21 09/08/21 09/08/21 05:30 05:30 07:19 MCV 93.9 MCH 30.3 MCHC 32.2 RDW 14.0 Plt Count 231 MPV 10.6 Absolute Nucleated RBC 0.000 Nucleated RBC % (auto) 0.0 Anion Gap 18 Estim Creat Clear Calc 32.8 Estimated GFR 46 POC Glucose 203 H Fasting Glucose 225 H Calcium 9.6 Magnesium 2.0 Assessment and Plan (1) Clostridioides difficile infection: Status: Acute (2) Weakness: Status: Acute (3) Acute UTI: Status: Acute (4) Metabolic encephalopathy: Status: Acute Assessment and Plan: An 81 years old lady with PMH of diabetes, CHF, HTN, PAF among others who presented to the hospital from SNF with increased weakness and diarrhea. 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 complicated by metabolic encephalopathy, status epile pticus poor prognosis discussed with family at bedside, plan for comfort measures only, will discon intue disease directed treatements, no labs or invasive vital signs, scopolamine patch, morphine prn C diff infection diarrhea resolved, no further treatent UTI completed treatement Type 2 diabetes will avoid poc and insulin in favor of comfort chronic Atrial fibrillation with rapid ventricular respose will dc tele, no further treatement as will not improve comfort DNR/DNI Quality Stroke Does the patient have a stroke diagnosis?: No VTE Prior VTE?: No VTE Risk Level:: Medical - moderate - high VTE Device Contraindication: Treatment Not Indicated VTE Drug Contraindication: N/A - Med Ordered
--- NOTE | 2021-09-08 11:47 | MHC.CM.PN ---
PER CONVERSATION WITH HOSPITALIST AND FAMILY, PATIENT IS NOW [employer].
--- NOTE | 2021-09-08 12:14 | MHC.CM.PN ---
[facility] UPDATED AND UPLOADED INTO [employer] ORIGINAL ON CHART. DAUGHTER/HCP SIXTO IS AWARE AND WILL DRY HOUSE WORKER A COPY IF SHE COMES IN OVER THE WEEKEND
[2021-09-08] MEDS: Morphine Sulfate 2 MG/ML CARTRIDGE IVPUSH ×2 (13:08→20:25)
[2021-09-08] MEDS: Scopolamine 1.5 MG PATCH.TD.3 TRANSDERMA (13:09)
[2021-09-08 15:06] VITALS: RESP 14
[2021-09-08 18:59] VITALS: RESP 12
[2021-09-09] VITALS: RESP 14
[2021-09-09 08:00] VITALS: RESP 16
[2021-09-09] MEDS: Morphine Sulfate 2 MG/ML CARTRIDGE IVPUSH (08:00)
[2021-09-09] MEDS: 0.9 % Sodium Chloride Flush 3 ML SYRINGE IVFLUSH ×3 (08:01→22:46)
--- NOTE | 2021-09-09 09:52 | P.PNIM_ITS ---
Subjective Subjective Date of Service: 09/09/21 Interval History: cc: weakness interval history: appears comfortable Review of Systems Review of Systems: Yes Unobtainable due to mental condition Physical Exam Vital Signs: Vital Signs: Last Vital Signs Temp 97.8 F 09/08/21 07:14 Pulse 118 H 09/08/21 07:14 Resp 16 09/09/21 08:00 BP 166/77 H 09/08/21 07:14 Pulse Ox 99 09/08/21 07:14 BMI result Body Mass Index 22.3 General: unresponisve, appears comfortable Resp:? CTA bilateral, no accessory muscles used CVS: S1,S2,RRR GI: soft, non tender, non distended Neuro:? occasional jaw movements and regular breathing, otherwise no voluntary movements Psych: impaired insight Objective Data Active Medications Acetaminophen (Acetaminophen 325 Mg Tablet) 650 mg PO Q6H PRN PRN Reason: Pain, Mild (Pain Scale 1-3) Morphine Sulfate (Morphine Sulfate 2 Mg/Ml Cartridge) 2 mg IVPUSH Q4H PRN PRN Reason: Discomfort/Shortness of breath Last Admin: 09/09/21 08:00 Dose: 2 mg Documented by: THOMAS Ondansetron HCl (Ondansetron Hcl 4 Mg/2 Ml Vial) 4 mg IVPUSH Q8H PRN PRN Reason: Nausea and Vomiting Pharmacy Consult (Consult Rx Perform Med Rec) 1 each MISCELLANE ONCE PRN PRN Reason: Consult order Scopolamine (Scopolamine 1.5 Mg Patch.Td.3) 1.5 mg TRANSDERMA Q72H [facility] Last Admin: 09/08/21 13:09 Dose: 1.5 mg Documented by: RAVI Sodium Chloride (0.9 % Sodium Chloride Flush 3 Ml Syringe) 3 ml IVFLUSH QSHIFT [facility] Last Admin: 09/09/21 08:01 Dose: 3 ml Documented by: THOMAS Labs CBC & Chem 7: 09/08/21 05:30 09/08/21 05:30 Assessment and Plan (1) Clostridioides difficile infection: Status: Acute (2) Weakness: Status: Acute (3) Acute UTI: Status: Acute (4) Metabolic encephalopathy: Status: Acute Assessment and Plan: An 81 years old lady with PMH of diabetes, CHF, HTN, PAF among others who presented to the hospital from SNF with increased weakness and diarrhea. course complicated by status epilepticus due to acute-subacute left frontal CVA, decision made to make patient comfort measures only acute left frontal CVA complicated by metabolic encephalopathy, status epilepticus appears comfortable will continue scopolamine patch morphine as needed Quality Stroke Does the patient have a stroke diagnosis?: No VTE Prior VTE?: No VTE Risk Level:: Medical - moderate - high VTE Device Contraindication: Treatment Not Indicated VTE Drug Contraindication: N/A - Med Ordered
--- NOTE | 2021-09-09 15:17 | PC.NURSE ---
Patient unresponsive. RR 8 with periods of apnea. Reopsitioned q2h for comfort.
[2021-09-09 15:25] VITALS: BP 131/76; PULSE 76; RESP 15; TEMP 36.8; O2SAT 97
[2021-09-10] VITALS: RESP 15
[2021-09-10 07:44] VITALS: RESP 14
[2021-09-10] MEDS: 0.9 % Sodium Chloride Flush 3 ML SYRINGE IVFLUSH ×2 (08:36→15:38)
--- NOTE | 2021-09-10 09:33 | HO.PM.IMPN ---
Subjective Subjective Date of Service: 09/10/21 Interval History: cc: weakness interval history: appears comfortable Review of Systems Review of Systems: Yes Unobtainable due to mental condition Physical Exam Vital Signs: Vital Signs: Last Vital Signs Temp 98.3 F 09/09/21 15:25 Pulse 76 09/09/21 15:25 Resp 14 09/10/21 07:44 BP 131/76 09/09/21 15:25 Pulse Ox 97 09/09/21 15:25 BMI result Body Mass Index 22.3 General: unresponisve, blank stare, appears comfortable Resp:? CTA bilateral, no accessory muscles used CVS: S1,S2,RRR GI: soft, non tender, non distended Neuro:? occasional jaw movements and regular breathing, otherwise no voluntary movements Psych: impaired insight Objective Data Active Medications Acetaminophen (Acetaminophen 325 Mg Tablet) 650 mg PO Q6H PRN PRN Reason: Pain, Mild (Pain Scale 1-3) Morphine Sulfate (Morphine Sulfate 2 Mg/Ml Cartridge) 2 mg IVPUSH Q4H PRN PRN Reason: Discomfort/Shortness of breath Last Admin: 09/09/21 08:00 Dose: 2 mg Documented by: THOMAS Ondansetron HCl (Ondansetron Hcl 4 Mg/2 Ml Vial) 4 mg IVPUSH Q8H PRN PRN Reason: Nausea and Vomiting Pharmacy Consult (Consult Rx Perform Med Rec) 1 each MISCELLANE ONCE PRN PRN Reason: Consult order Scopolamine (Scopolamine 1.5 Mg Patch.Td.3) 1.5 mg TRANSDERMA Q72H [facility] Last Admin: 09/08/21 13:09 Dose: 1.5 mg Documented by: RAVI Sodium Chloride (0.9 % Sodium Chloride Flush 3 Ml Syringe) 3 ml IVFLUSH QSHIFT [facility] Last Admin: 09/10/21 08:36 Dose: 3 ml Documented by: RAVI Labs CBC & Chem 7: 09/08/21 05:30 09/08/21 05:30 Assessment and Plan (1) Clostridioides difficile infection: Status: Acute (2) Weakness: Status: Acute (3) Acute UTI: Status: Acute (4) Metabolic encephalopathy: Status: Acute Assessment and Plan: An 81 years old lady with PMH of diabetes, CHF, HTN, PAF among others who presented to the hospital from SNF with increased weakness and diarrhea. course complicated by status epilepticus due to acute-subacute left frontal CVA, decision made to make patient comfort measures only acute left frontal CVA complicated by metabolic encephalopathy, status epilepticus appears comfortable continue comfort measures with scopolamine and morphine as needed Quality Stroke Does the patient have a stroke diagnosis?: No VTE Prior VTE?: No VTE Risk Level:: Medical - moderate - high VTE Device Contraindication: Treatment Not Indicated VTE Drug Contraindication: N/A - Med Ordered
[2021-09-10 15:35] VITALS: RESP 14
[2021-09-10] MEDS: Morphine Sulfate 2 MG/ML CARTRIDGE IVPUSH ×2 (16:27→20:10)
[2021-09-10 23:57] VITALS: BP 137/99; PULSE 54; RESP 20; TEMP 36.9; O2SAT 98
[2021-09-11] VITALS (7 sets, daily range): PULSE 64; RESP 10–24; TEMP 36.9; O2SAT 98
[2021-09-11] MEDS: 0.9 % Sodium Chloride Flush 3 ML SYRINGE IVFLUSH ×4 (04:39→21:09)
[2021-09-11] MEDS: Morphine Sulfate 2 MG/ML CARTRIDGE IVPUSH ×2 (09:07→20:01)
--- NOTE | 2021-09-11 09:09 | P.PNIM_ITS ---
Subjective Subjective Date of Service: 09/11/21 Interval History: cc: weakness interval history: unrousable Review of Systems Review of Systems: Yes Unobtainable due to mental condition Physical Exam Vital Signs: Vital Signs: Last Vital Signs Temp 98.5 F 09/10/21 23:57 Pulse 54 09/10/21 23:57 Resp 24 H 09/11/21 09:07 BP 137/99 H 09/10/21 23:57 Pulse Ox 98 09/10/21 23:57 BMI result Body Mass Index 22.3 General: unresponisve, blank stare, mildly tachypneic Resp:? CTA bilateral, no accessory muscles used CVS: S1,S2,RRR GI: soft, non tender, non distended Neuro:? occasional jaw movements and regular breathing, otherwise no voluntary movements Psych: impaired insight Objective Data Active Medications Acetaminophen (Acetaminophen 325 Mg Tablet) 650 mg PO Q6H PRN PRN Reason: Pain, Mild (Pain Scale 1-3) Morphine Sulfate (Morphine Sulfate 2 Mg/Ml Cartridge) 2 mg IVPUSH Q4H PRN PRN Reason: Discomfort/Shortness of breath Last Admin: 09/11/21 09:07 Dose: 2 mg Documented by: DK Ondansetron HCl (Ondansetron Hcl 4 Mg/2 Ml Vial) 4 mg IVPUSH Q8H PRN PRN Reason: Nausea and Vomiting Pharmacy Consult (Consult Rx Perform Med Rec) 1 each MISCELLANE ONCE PRN PRN Reason: Consult order Scopolamine (Scopolamine 1.5 Mg Patch.Td.3) 1.5 mg TRANSDERMA Q72H [facility] Last Admin: 09/08/21 13:09 Dose: 1.5 mg Documented by: RAVI Sodium Chloride (0.9 % Sodium Chloride Flush 3 Ml Syringe) 3 ml IVFLUSH QSHIFT [facility] Last Admin: 09/11/21 09:07 Dose: 3 ml Documented by: DK Labs CBC & Chem 7: 09/08/21 05:30 09/08/21 05:30 Assessment and Plan (1) Clostridioides difficile infection: Status: Acute (2) Weakness: Status: Acute (3) Acute UTI: Status: Acute (4) Metabolic encephalopathy: Status: Acute Assessment and Plan: An 81 years old lady with PMH of diabetes, CHF, HTN, PAF among others who presented to the hospital from SNF with increased weakness and diarrhea. course complicated by status epilepticus due to acute-subacute left frontal CVA, decision made to make patient comfort measures only acute left frontal CVA complicated by metabolic encephalopathy, status epilepticus mildly tachypneic, treat with morphine continue comfort measures with scopolamine and morphine as needed Quality Stroke Does the patient have a stroke diagnosis?: No VTE Prior VTE?: No VTE Risk Level:: Medical - moderate - high VTE Device Contraindication: Treatment Not Indicated VTE Drug Contraindication: N/A - Med Ordered
[2021-09-11] MEDS: Scopolamine 1.5 MG PATCH.TD.3 TRANSDERMA (11:43)
--- NOTE | 2021-09-11 12:10 | MHC.CLN ---
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 PATIENT IS UNRESPONSIVE AND CONTINUES NPO.
--- NOTE | 2021-09-11 16:55 | P.CONWO_ITS ---
History of Present Illness Data of Consult Service Date: 09/11/21 Requesting physician: Messi Del Toro Primary Care Provider: Narinder Lawson MD [facility] Reason for consult: coccyx wound 81 year old female on comfort measures only with metabolic encephalopathy and CHF history, asked to evaluate coccygeal wound. Review of Systems Review of Systems: Yes Unobtainable due to mental condition PMFSH Medical History Breast cancer CAD (coronary artery disease) Chronic combined systolic and diastolic CHF (congestive heart failure) Dementia Diabetes mellitus HTN (hypertension) Hypothyroid LBBB (left bundle branch block) Nephrolithiasis Paroxysmal A-fib Presence of stent in LAD coronary artery Family History Father CAD (coronary artery disease) Diabetes Mother CAD (coronary artery disease) Surgical History S/P cholecystectomy Status post cardiac pacemaker procedure Social History Household Members: Other Household Members Other:: residents Housing: Prison Do you presently have visiting nurse or other home services: Yes Unable to assess alcohol history related to: Unable to respond Alcohol intake: never Patient Tobacco Use Status: Never used Tobacco Advance Directives Date on File: 07/17/21 service: No Current occupational status: retired [employer] Allergies Allergy/AdvReac Type Severity Reaction Status Date / Time No Known Allergies Allergy Mild NONE Unverified 06/02/20 16:28 sesame seed [SESAME SEED] Allergy Unknown UNK Unverified 06/07/20 08:31 spider bites Allergy Unknown severe Uncoded 04/22/20 00:00 Active Medications: Current Medications Acetaminophen (Acetaminophen 325 Mg Tablet) 650 mg PO Q6H PRN PRN Reason: Pain, Mild (Pain Scale 1-3) Morphine Sulfate (Morphine Sulfate 2 Mg/Ml Cartridge) 2 mg IVPUSH Q4H PRN PRN Reason: Discomfort/Shortness of breath Last Admin: 09/11/21 09:07 Dose: 2 mg Documented by: Ondansetron HCl (Ondansetron Hcl 4 Mg/2 Ml Vial) 4 mg IVPUSH Q8H PRN PRN Reason: Nausea and Vomiting Pharmacy Consult (Consult Rx Perform Med Rec) 1 each MISCELLANE ONCE PRN PRN Reason: Consult order Scopolamine (Scopolamine 1.5 Mg Patch.Td.3) 1.5 mg TRANSDERMA Q72H [facility] Last Admin: 09/11/21 11:43 Dose: 1.5 mg Documented by: Sodium Chloride (0.9 % Sodium Chloride Flush 3 Ml Syringe) 3 ml IVFLUSH QSHIFT [facility] Last Admin: 09/11/21 15:46 Dose: 3 ml Documented by: Home Medications Medication Instructions Recorded Confirmed Last Taken Type isosorbide mononitrate 20 mg tablet 1 tab PO DAILY@0800 07/16/21 09/01/21 Unknown History levothyroxine 112 mcg tablet 1 tab PO DAILY@0600 07/16/21 09/01/21 Unknown History metoprolol tartrate 50 mg tablet 1 tab PO BID 07/16/21 09/01/21 Unknown History potassium chloride 10 mEq 4 cap PO DAILY@1200 07/16/21 09/01/21 Unknown History capsule,extended release rivaroxaban 20 mg tablet (Xarelto) 1 tab PO DAILY@199907/16/21 09/01/21 Unknown History Physical Exam Vital Signs and Narrative: Vital Signs: Last Vital Signs Temp 98.5 F 09/10/21 23:57 Pulse 54 09/10/21 23:57 Resp 20 09/11/21 15:45 BP 137/99 H 09/10/21 23:57 Pulse Ox 98 09/10/21 23:57 BMI result Body Mass Index 22.3 the patient is resting comfortably when I entered the room. I turn on the lights and she is not disturbed. She continues breathe deeply. The patient was not responding well to verbal stimulus. Tactile stimulus also did not arouse the patient. She was comfortably turned onto her left side to examine the wound which was covered in all even. Her motion alarms were set off and her nurses enter the room. This approximately 1.2 x 1.2 area of contusion is difficult to assess. It looks more like friction and shear as opposed to a pressure injury. There is no redness or swelling to suggest active infection of the dermis. Results Labs CBC and Chem 7: 09/08/21 05:30 09/08/21 05:30 Assessment and Plan (1) Dermatitis, unspecified: Status: Acute Continue comfort measures only per attending physician orders. This can include Allevyn foam as appropriate for topical care and protection of further friction and shear.
--- NOTE | 2021-09-11 19:16 | PC.NURSE ---
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 Repositioned every 2 hours. Respirations stable, medicated as needed. No facial grimacing or moaning. Family at bedside for brief visit.
[2021-09-12] MEDS: 0.9 % Sodium Chloride Flush 3 ML SYRINGE IVFLUSH (07:35)
--- NOTE | 2021-09-12 08:12 | PM.DDS ---
Discharge Sum: Prov Provider Primary care physician: Narinder Lawson MD Consults: 09/01/21 16:13 Consult to Infectious Diseases Routine Consulting Provider: Angela Moore Reason for consultation: Eval for CDiff infx, reported Pseudomonas UTI 08/2909/07/21 10:20 Consult to Neurology Routine Consulting Provider: [facility] Reason for consultation: AMS, ?seizure, ?cefepime neurotoxicity Discharge Sum: Diag Contributing Factors (1) Dermatitis, unspecified: Discharge Sum: Summary Date and Time Date of admission: 09/01/21 16:13 Date of : 09/12/21 Time of : 08:00 Summary Details: Patient was admitted for weakness and diarrhea secondary to C diff and urinary tract infection. Course was complicated by status epilepticus found to be due to acute left frontal CVA complicated by metabolic encephalopathy. Due to poor prognosis decision was made to make patient comfort measures only. Patient peacefully on 09/12/2021 at 08:00. Additional Data Confirmation of as documented by pronouncing clinician: no pulse, no respirations and no heart sounds Family: contacted Attending physician: Messi Del Toro MD Was code activated?: No Autopsy requested?: No
--- NOTE | 2021-09-12 11:08 | PC.NURSE ---
Late entry: Went into patients room this morning pt was not breathing, no pulse, no respirations, no heart sounds.. Skin was cold to touch. Called Tamara PACHECO in to assess patient. Call placed to Dr. Del Toro, I called Marbella her daugter. NEOB called pt declined.
== END 2021-09-12 12:13 | disposition expired | DRG 371 ==
LOC: HO.ED 15:58 → HO.EDOVER 16:50 → HO.S3 09-02 15:33 → HO.IMC 09-07 15:58 → HO.S3 09-07 16:18
PROVIDERS: Admitting Provider Student in an Organized Health Care Education/Training Program; Emergency Provider Emergency Medicine; PCP Family Medicine; Visit Provider Internal Medicine
DX: A04.72 Enterocolitis due to Clostridium difficile, not specified as recurrent (principal); G93.41 Metabolic encephalopathy; I63.512 Cerebral infarction due to unspecified occlusion or stenosis of left middle cerebral artery; N39.0 Urinary tract infection, site not specified; I50.42 Chronic combined systolic (congestive) and diastolic (congestive) heart failure; I11.0 Hypertensive heart disease with heart failure; I48.0 Paroxysmal atrial fibrillation; F03.90 Unspecified dementia, unspecified severity, without behavioral disturbance, psychotic disturbance, mood disturbance, and anxiety; G40.901 Epilepsy, unspecified, not intractable, with status epilepticus; E11.9 Type 2 diabetes mellitus without complications; L30.9 Dermatitis, unspecified; B96.5 Pseudomonas (aeruginosa) (mallei) (pseudomallei) as the cause of diseases classified elsewhere; Z20.822 Contact with and (suspected) exposure to COVID-19; Z79.01 Long term (current) use of anticoagulants; Z79.890 Hormone replacement therapy; Z79.899 Other long term (current) drug therapy
CPT/HCPCS: 36415; 70450; 71045; 80048; 80076; 81001; 82803; 82947; 83605; 83690; 83735; 84443; 84484; 85025; 85027; 87040; 87086; 87324; 87493; 87635; 93005; 95816; 96360; 96361; 99285; J0133; J0692; J1160; J1953; J2060; J2270; J2560